=== PATIENT | female | born 1965 | race Two or more races ===

== ENCOUNTER 2023-01-03 09:50 | Day surgery (SDC) | payer BC, OTHER ==
[~2023-01-03 09:50] MED LIST: LACTATED RINGERS 1,000 ML IV SCH
[2023-01-03 11:13] VITALS: TEMP 97.2
[2023-01-03] MEDS ORDERED: PROPOFOL 10 MG/ML 20 ML VIAL IV ONE (12:16)
--- NOTE | 2023-01-03 12:35 | P.PCN ---
Date of Procedure: 01/03/23 Procedure(s) Performed: BRIEF HISTORY: Patient is a 57-year-old pleasant white female scheduled for an elective colonoscopy as a part of evaluation of prior history of colon polyps. Last colonoscopy was 5 years ago. PROCEDURE PERFORMED: Colonoscopy. PREOPERATIVE DIAGNOSIS: History of colon polyps. IV sedation per Anesthesia. PROCEDURE: After informed consent was obtained, the patient, was brought into the endoscopy unit. IV sedation was administered by Anesthesia under continuous monitoring. Digital rectal examination was normal. Initially the Olympus CF-160 flexible video colonoscope was then inserted in the rectum, gradually advanced into the cecum without any difficulty. Careful examination was performed as the scope was gradually being withdrawn. Ileocecal valve and the appendiceal orifice were visualized and appeared normal. Prep was fair.. Mucosa of the cecum, ascending colon, transverse colon, descending colon, sigmoid colon, and rectum appeared normal. Scattered sigmoid diverticulosis. Retroflexion was performed in the rectum and no lesions were seen. The patient tolerated the procedure well. IMPRESSION: Scattered sigmoid diverticulosis No evidence of colorectal neoplasia RECOMMENDATIONS: Findings of this examination were discussed with the patient as well as her family. She was advised to have a repeat screening colonoscopy in 5 years because of the prior history of colon polyps.
[2023-01-03 13:01] VITALS: BP 130/85; PULSE 63; RESP 14
== END 2023-01-03 13:15 | disposition home or self-care (01) ==
LOC: ORWHC2ENDO 09:50
PROVIDERS: ATTEND Internal Medicine Gastroenterology
DX: Z12.11 Encounter for screening for malignant neoplasm of colon (principal); K57.30 Diverticulosis of large intestine without perforation or abscess without bleeding; I10 Essential (primary) hypertension; E78.5 Hyperlipidemia, unspecified; F12.90 Cannabis use, unspecified, uncomplicated; K21.9 Gastro-esophageal reflux disease without esophagitis; Z86.010 Personal history of colon polyps; Z88.5 Allergy status to narcotic agent; Z79.899 Other long term (current) drug therapy
CPT/HCPCS: 45378; J2704

== ENCOUNTER 2023-02-15 15:20 | Inpatient (IN) | payer OTHER ==
[2023-02-15 15:59] LABS: Basophils % (A) 1 %; Eosinophils # (A) 0.1 k/uL (0-0.7); Eosinophils % (A) 2 %; HCT 41.1 % (34.0-46.0); HGB 14.8 gm/dL (11.4-16.0); Lymphocytes # (A) 0.9 k/uL (1.0-4.8); Lymphocytes % (A) 20 %; MCH 33.6 pg (25.0-35.0); MCHC 36.1 g/dL (31.0-37.0); MCV 93.1 fL (80.0-100.0); Mean Platelet Volume 7.8; Monocytes # (A) 0.4 k/uL (0-1.0); Monocytes % (A) 8 %; Neutrophils # (A) 3.2 k/uL (1.3-7.7); Neutrophils % (A) 68 %; Platelet Count 182 k/uL (150-450); RBC 4.41 m/uL (3.80-5.40); RDW 13.3 % (11.5-15.5); WBC 4.7 k/uL (3.8-10.6)
[2023-02-15 16:04] LABS: INR 0.9 (<1.2); Partial Thromboplastin Time 23.4 sec (22.0-30.0)
[2023-02-15 16:12] LABS: ALT 93 U/L (4-34); AST 241 U/L (14-36); African American GFR (CKD) >90 (>60 ml/min/1.73 sqM); Albumin 4.8 g/dL (3.5-5.0); Alkaline Phosphatase 113 U/L (38-126); Anion Gap 14 mmol/L; Blood Urea Nitrogen 6 mg/dL (7-17); Calcium 9.4 mg/dL (8.4-10.2); Carbon Dioxide 25 mmol/L (22-30); Chloride 83 mmol/L (98-107); Glucose 114 mg/dL (74-99); Magnesium 1.3 mg/dL (1.6-2.3); Non-African American GFR(CKD) >90 (>60 ml/min/1.73 sqM); Potassium 3.2 mmol/L (3.5-5.1); Sodium 122 mmol/L (137-145); Total Bilirubin 1.9 mg/dL (0.2-1.3); Total Protein 8.4 g/dL (6.3-8.2)
--- NOTE | 2023-02-15 16:13 | ED ---
General Adult HPI - General Source: patient Mode of arrival: ambulatory Limitations: no limitations <Gera Ybarra - Last Filed: 02/15/23 16:12> <Malcolm Ortiz - Last Filed: 02/16/23 09:15> - General Chief complaint: Chest Pain Stated complaint: Chest Pain Time Seen by Provider: 02/15/23 16:12 - History of Present Illness Initial comments: 57-year-old female presenting with chief complaint of "I just don't feel right". Admits to lightheadedness and fatigue. She denies chest pain or difficulty breathing. (Gera Ybarra) - Related Data Home Medications Medication Instructions Recorded Confirmed ALPRAZolam [Xanax] 0.25 mg PO DAILY PRN 01/01/23 02/15/23 Ezetimibe [Zetia] 10 mg PO DAILY 01/01/23 02/15/23 Lisinopril-Hctz 20-12.5 mg 1 tab PO BID 01/01/23 02/15/23 [Zestoretic 20-12.5] Omeprazole 20 mg PO DAILY 01/01/23 02/15/23 Zolpidem Tartrate [Ambien] 10 mg PO HS 01/01/23 02/15/23 Allergies Allergy/AdvReac Type Severity Reaction Status Date / Time codeine Allergy Itching Verified 02/15/23 20:36 Review of Systems ROS Other: All systems not noted in ROS Statement are negative. <Gera Ybarra - Last Filed: 02/15/23 16:12> ROS Other: All systems not noted in ROS Statement are negative. <Malcolm Ortiz - Last Filed: 02/16/23 09:15> ROS Statement: Those systems with pertinent positive or pertinent negative responses have been documented in the HPI. Past Medical History Past Medical History: GERD/Reflux, Hyperlipidemia, Hypertension, Liver Disease Additional Past Medical History / Comment(s): fatty liver, History of Any Multi-Drug Resistant Organisms: None Reported Past Surgical History: Section, Cholecystectomy, Orthopedic Surgery Additional Past Surgical History / Comment(s): rt foot surgery. colonosopy Past Anesthesia/Blood Transfusion Reactions: No Reported Reaction Past Psychological History: Anxiety Smoking Status: Former smoker, Light tobacco smoker Past Alcohol Use History: Daily Past Drug Use History: Marijuana - Past Family History Mother Family Medical History: CVA/TIA Father Family Medical History: Cancer Additional Family Medical History / Comment(s): lung cancer <Gera Ybarra - Last Filed: 02/15/23 16:12> General Exam Limitations: no limitations <Gera Ybarra - Last Filed: 02/15/23 16:12> General appearance: alert, in no apparent distress Head exam: Present: atraumatic, normocephalic Eye exam: Present: normal appearance. Absent: scleral icterus, conjunctival injection ENT exam: Present: mucous membranes dry Neck exam: Present: normal inspection Respiratory exam: Present: normal lung sounds bilaterally. Absent: respiratory distress, wheezes, rales, rhonchi, stridor Cardiovascular Exam: Present: regular rate, normal rhythm, normal heart sounds. Absent: systolic murmur, diastolic murmur, rubs, gallop GI/Abdominal exam: Present: soft. Absent: distended, tenderness, guarding, rebound, rigid, mass Extremities exam: Present: normal inspection, normal capillary refill. Absent: pedal edema, calf tenderness Back exam: Present: normal inspection Neurological exam: Present: alert Skin exam: Present: warm, dry, intact, normal color. Absent: rash <Malcolm Ortiz - Last Filed: 02/16/23 09:15> - General Exam Comments Initial Comments: Visual Physical Exam Vital signs reviewed General: Well-appearing, nontoxic, no acute distress. Head: Normocephalic, atraumatic Eyes: PERRLA, EOMI ENT: Airway patent Chest: Nonlabored breathing Skin: No visual rash, normal skin tone Neuro: Alert and oriented 3 Musculoskeletal: No gross abnormalities (Gera Ybarra) Course Vital Signs 02/15/23 02/15/23 02/15/23 15:28 17:07 20:43 Temperature 98.3 F Pulse Rate 106 H 91 97 Respiratory 22 16 18 Rate Blood Pressure 123/91 130/96 121/93 O2 Sat by Pulse 99 100 96 Oximetry EKG Findings - EKG Results: EKG: interpreted by ERMD, sinus rhythm, normal axis EKG shows: tachycardia (Rate 104 bpm) <Malcolm Ortiz - Last Filed: 02/16/23 09:15> Medical Decision Making - Lab Data Result diagrams: 02/15/23 15:45 02/15/23 15:45 <Gera Ybarra - Last Filed: 02/15/23 16:12> - Lab Data Result diagrams: 02/15/23 15:45 02/15/23 15:45 <Malcolm Ortiz - Last Filed: 02/16/23 09:15> - Medical Decision Making This patient is a 57 year old woman who has not been feeling in her usual self, the workup does reveal moderate hyponatremia. Patient is started on saline, her diuretic held, case discussed with admitting physician. Was pt. sent in by a medical professional or institution (, PA, KNITTER MACHINE, urgent care, hospital, or half-way...) When possible be specific @ -[No] Did you speak to anyone other than the patient for history (EMS, parent, family, police, friend...)? What history was obtained from this source @ -[No] Did you review nursing and triage notes (agree or disagree)? Why? @ -[I reviewed and agree with nursing and triage notes] Were old charts reviewed (outside hosp., previous admission, EMS record, old EKG, old radiological studies, urgent care reports/EKG's, half-way records)? Report findings @ -[No old charts were reviewed] Differential Diagnosis (chest pain, altered mental status, abdominal pain women, abdominal pain men, vaginal bleeding, weakness, fever, dyspnea, syncope, headache, dizziness, GI bleed, back pain, seizure, CVA, palpatations, mental health, musculoskeletal)? @ -[Differential Weakness: Hypoglycemia, shock, sepsis, hyponatremia, anemia, infection, OR, ETOH, adverse medicine reaction, overdose, stroke, this is not meant to be an all-inclusive list. EKG interpreted by me (3pts min.). @ -[As above] X-rays interpreted by me (1pt min.). @ -[None done] CT interpreted by me (1pt min.). @ -[None done] U/S interpreted by me (1pt. min.). @ -[None done] What testing was considered but not performed or refused? (CT, X-rays, U/S, labs)? Why? @ -[None] What meds were considered but not given or refused? Why? @ -[None] Did you discuss the management of the patient with other professionals (professionals i.e. , PA, KNITTER MACHINE, lab, RT, psych nurse, social professionals, fittings tightener, teacher, grant officer, bilingual case manager)? Give summary @ -[Case discussed with admitting physician Was smoking cessation discussed for >3mins.? @ -[No] Was critical care preformed (if so, how long)? @ -[No] Were there social determinants of health that impacted care today? How? (Homelessness, low income, unemployed, alcoholism, drug addiction, transportation, low edu. Level, literacy, decrease access to med. care, half-way, rehab)? @ -[No] Was there de-escalation of care discussed even if they declined (Discuss DNR or withdrawal of care, Hospice)? DNR status @ -[No] What co-morbidities impacted this encounter? (DM, HTN, Smoking, COPD, CAD, Cancer, CVA, ARF, Chemo, Hep., AIDS, mental health diagnosis, sleep apnea, morbid obesity)? @ -[Hypertension Was patient admitted / discharged? Hospital course, mention meds given and route, prescriptions, significant lab abnormalities, going to OR and other pertinent info. @ -[Patient is admitted for IV hydration, saline Undiagnosed new problem with uncertain prognosis? @ -[No] Drug Therapy requiring intensive monitoring for toxicity (Heparin, Nitro, Insulin, Cardizem)? @ -[No] Were any procedures done? @ -[No] Diagnosis/symptom? @ -[Acute hyponatremia Acute, or Chronic, or Acute on Chronic? @ -[Acute Uncomplicated (without systemic symptoms) or Complicated (systemic symptoms)? @ -[Uncomplicated Side effects of treatment? @ -[No] Exacerbation, Progression, or Severe Exacerbation? @ -[No] Poses a threat to life or bodily function? How? (Chest pain, USA, OR, pneumonia, PE, COPD, DKA, ARF, appy, cholecystitis, CVA, Diverticulitis, Homicidal, Suicidal, threat to staff... and all critical care pts) @ -[No] (Malcolm Ortiz) - Lab Data Lab Results 02/15/23 02/15/23 02/15/23 Range/Units 15:45 15:45 15:45 WBC 4.7 (3.8-10.6) k/uL RBC 4.41 (3.80-5.40) m/uL Hgb 14.8 (11.4-16.0) gm/dL Hct 41.1 (34.0-46.0) % MCV 93.1 (80.0-100.0) fL MCH 33.6 (25.0-35.0) pg MCHC 36.1 (31.0-37.0) g/dL RDW 13.3 (11.5-15.5) % Plt Count 182 (150-450) k/uL MPV 7.8 Neutrophils % 68 % Lymphocytes % 20 % Monocytes % 8 % Eosinophils % 2 % Basophils % 1 % Neutrophils # 3.2 (1.3-7.7) k/uL Lymphocytes # 0.9 L (1.0-4.8) k/uL Monocytes # 0.4 (0-1.0) k/uL Eosinophils # 0.1 (0-0.7) k/uL Basophils # 0.0 (0-0.2) k/uL PT 10.0 (9.0-12.0) sec INR 0.9 (<1.2) APTT 23.4 (22.0-30.0) sec Sodium 122 L (137-145) mmol/L Potassium 3.2 L (3.5-5.1) mmol/L Chloride 83 L (98-107) mmol/L Carbon Dioxide 25 (22-30) mmol/L Anion Gap 14 mmol/L BUN 6 L (7-17) mg/dL Creatinine 0.63 (0.52-1.04) mg/dL Est GFR (CKD-EPI)AfAm >90 (>60 ml/min/1.73 sqM) Est GFR (CKD-EPI)NonAf >90 (>60 ml/min/1.73 sqM) Glucose 114 H (74-99) mg/dL Calcium 9.4 (8.4-10.2) mg/dL Magnesium 1.3 L (1.6-2.3) mg/dL Total Bilirubin 1.9 H (0.2-1.3) mg/dL AST 241 H (14-36) U/L ALT 93 H (4-34) U/L Alkaline Phosphatase 113 (38-126) U/L Troponin I (0.000-0.034) ng/mL Total Protein 8.4 H (6.3-8.2) g/dL Albumin 4.8 (3.5-5.0) g/dL 02/15/23 Range/Units 15:45 WBC (3.8-10.6) k/uL RBC (3.80-5.40) m/uL Hgb (11.4-16.0) gm/dL Hct (34.0-46.0) % MCV (80.0-100.0) fL MCH (25.0-35.0) pg MCHC (31.0-37.0) g/dL RDW (11.5-15.5) % Plt Count (150-450) k/uL MPV Neutrophils % % Lymphocytes % % Monocytes % % Eosinophils % % Basophils % % Neutrophils # (1.3-7.7) k/uL Lymphocytes # (1.0-4.8) k/uL Monocytes # (0-1.0) k/uL Eosinophils # (0-0.7) k/uL Basophils # (0-0.2) k/uL PT (9.0-12.0) sec INR (<1.2) APTT (22.0-30.0) sec Sodium (137-145) mmol/L Potassium (3.5-5.1) mmol/L Chloride (98-107) mmol/L Carbon Dioxide (22-30) mmol/L Anion Gap mmol/L BUN (7-17) mg/dL Creatinine (0.52-1.04) mg/dL Est GFR (CKD-EPI)AfAm (>60 ml/min/1.73 sqM) Est GFR (CKD-EPI)NonAf (>60 ml/min/1.73 sqM) Glucose (74-99) mg/dL Calcium (8.4-10.2) mg/dL Magnesium (1.6-2.3) mg/dL Total Bilirubin (0.2-1.3) mg/dL AST (14-36) U/L ALT (4-34) U/L Alkaline Phosphatase (38-126) U/L Troponin I <0.012 (0.000-0.034) ng/mL Total Protein (6.3-8.2) g/dL Albumin (3.5-5.0) g/dL Disposition <Gera Ybarra - Last Filed: 02/15/23 16:12> Is patient prescribed a controlled substance at d/c from ED?: No <Malcolm Ortiz - Last Filed: 02/16/23 09:15> Clinical Impression: Hyponatremia Disposition: ADMITTED IP TO THIS HOSP Condition: Good
--- NOTE | 2023-02-15 18:25 | XR ---
EXAMINATION: XR chest 2V: 02/15/2023 4:52 PM CLINICAL INDICATION: dizziness TECHNIQUE: Departmental protocol COMPARISON: None FINDINGS: The lungs are clear. The pleural spaces are negative. The cardiac silhouette is not enlarged. The remainder of the mediastinal silhouette is unremarkable. The skeletal structures and soft tissues are negative for acute findings. IMPRESSION: No acute process.
--- NOTE | 2023-02-15 19:37 | US ---
EXAMINATION TYPE: US abdomen limited DATE OF EXAM: 02/15/2023 COMPARISON: NONE CLINICAL INDICATION: Female, 57 years old with history of evaluate biliary system; elevated LFTs TECHNIQUE: Multiple sonographic images of the right upper quadrant are obtained. FINDINGS: EXAM MEASUREMENTS: Liver Length: 13.8 cm Gallbladder Wall: Surgically absent CBD: 0.57 cm Right Kidney: 11.0 x 5.7 x 7.0 cm Pancreas: Parts visualized appear wnl Liver: Heterogeneous and increased attenuation Gallbladder: Surgically absent Evidence for sonographic Tucker's sign: No CBD: Not well visualized. Appears wnl Right Kidney: wnl IMPRESSION: No acute sonographic process.
[2023-02-15] MEDS ORDERED: NALOXONE 0.4 MG/ML 1 ML VIAL IV PRN (20:09)
[2023-02-15] MEDS ORDERED: ACETAMINOPHEN TAB 325 MG TAB PO PRN (20:09)
[2023-02-15] MEDS: FAMOTIDINE 20 MG TAB PO SCH (20:42)
[2023-02-15] MEDS: SODIUM CHLORIDE 0.9% 1,000 ML IV SCH ×2 (20:43→21:29)
[2023-02-15] MEDS ORDERED: ALPRAZolam 0.25 MG TAB PO PRN (22:00)
[2023-02-15] MEDS ORDERED: Potassium Replacement Protocol 1 EACH MISC MISCELLANE PRN (22:04)
[2023-02-15] MEDS ORDERED: Magnesium Replacement Protocol 1 EACH MISC MISCELLANE PRN (22:05)
[2023-02-15] MEDS: MAGNESIUM SULFATE-D5W PMX 1 GM in DEXTROSE/WATER 1 100ML.BAG IVPB SCH ×2 (22:35→23:32)
[2023-02-15] MEDS: POTASSIUM CHLORIDE ER 20 MEQ TAB.ER PO SCH ×2 (22:35→23:30)
[2023-02-15] MEDS: ZOLPIDEM 5 MG TAB PO PRN (23:30)
[2023-02-16] MEDS ORDERED: LISINOPRIL-HCTZ 20-12.5 MG 1 EACH TAB PO SCH (09:00)
[2023-02-16] MEDS: FAMOTIDINE 20 MG TAB PO SCH ×2 (09:03→20:17)
[2023-02-16] MEDS: EZETIMIBE 10 MG TAB PO SCH (09:03)
[2023-02-16 09:39] LABS: BUN/Creat Ratio 11.33 Ratio (12.00-20.00); Blood Urea Nitrogen 6.8 mg/dL (9.0-27.0); Calcium 8.7 mg/dL (8.7-10.3); Carbon Dioxide 22.2 mmol/L (21.6-31.8); Chloride 89 mmol/L (96-109); Glucose 98 mg/dL (70-110); Magnesium 2.2 mg/dL (1.5-2.4); Potassium 3.7 mmol/L (3.5-5.5); Sodium 124 mmol/L (135-145)
[2023-02-16 10:27] LABS: ALT 67 U/L (4-34); AST 135 U/L (14-36); African American GFR (CKD) >90 (>60 ml/min/1.73 sqM); Albumin 3.7 g/dL (3.5-5.0); Albumin/Globulin Ratio 1.3; Alkaline Phosphatase 95 U/L (38-126); Anion Gap 10 mmol/L; Blood Urea Nitrogen 7 mg/dL (7-17); Calcium 8.4 mg/dL (8.4-10.2); Carbon Dioxide 24 mmol/L (22-30); Chloride 90 mmol/L (98-107); Globulin 2.9 g/dL; Glucose 99 mg/dL (74-99); Non-African American GFR(CKD) >90 (>60 ml/min/1.73 sqM); Potassium 3.9 mmol/L (3.5-5.1); Sodium 124 mmol/L (137-145); Total Bilirubin 1.6 mg/dL (0.2-1.3); Total Protein 6.6 g/dL (6.3-8.2)
--- NOTE | 2023-02-16 12:04 | P.NPCON ---
History of Present Illness - Reason for Consult hyponatremia - History of Present Illness Reason for consultation: Hyponatremia History of present illness: Patient is a 57-year-old female seen in consultation for hyponatremia. She came to the hospital due to feeling 'funny'. She complains of worsening fatigue as well as dizziness. She denies any falls or syncopal episodes. She denies vomiting or diarrhea. She states her oral intake the last few days has been less than usual. She denies excessive fluid intake. Denies any personal history of malignancy. No edema. Denies history of coronary artery disease. Denies personal history of kidney disease. Her brother did have diabetes and required dialysis and subsequently got a kidney transplant. He is now . Patient's sodium level on admission was 122 and is 124 this morning. She is maintained on thiazide diuretic. She does have history of hypertension. Blood pressure is stable. Chest x-ray showed no acute process. Abdominal ultrasound showed no acute process. She is currently receiving normal saline at 1 30 mL an hour. Vital signs are stable. General: No acute distress. HEENT: Head exam is unremarkable. LUNGS: No audible rhonchi or wheezes. HEART: Rate and Rhythm are regular. ABDOMEN: Nontender. No distention. EXTREMITITES: No edema. Past Medical History Past Medical History: GERD/Reflux, Hyperlipidemia, Hypertension, Liver Disease Additional Past Medical History / Comment(s): fatty liver, History of Any Multi-Drug Resistant Organisms: None Reported Past Surgical History: Section, Cholecystectomy, Orthopedic Surgery Additional Past Surgical History / Comment(s): rt foot surgery. colonosopy Past Anesthesia/Blood Transfusion Reactions: No Reported Reaction Past Psychological History: Anxiety Smoking Status: Former smoker, Light tobacco smoker Past Alcohol Use History: Daily Additional Past Alcohol Use History / Comment(s): quit 28yrs ago Past Drug Use History: Marijuana Additional Drug Use History / Comment(s): thc edibles and occasional smoking. pt aware not to use 24 hrs before procedure. - Past Family History Mother Family Medical History: CVA/TIA Father Family Medical History: Cancer Additional Family Medical History / Comment(s): lung cancer Medications and Allergies Home Medications Medication Instructions Recorded Confirmed Type ALPRAZolam [Xanax] 0.25 mg PO DAILY PRN 01/01/23 02/15/23 History Ezetimibe [Zetia] 10 mg PO DAILY 01/01/23 02/15/23 History Lisinopril-Hctz 20-12.5 mg 1 tab PO BID 01/01/23 02/15/23 History [Zestoretic 20-12.5] Omeprazole 20 mg PO DAILY 01/01/23 02/15/23 History Zolpidem Tartrate [Ambien] 10 mg PO HS 01/01/23 02/15/23 History Allergies Allergy/AdvReac Type Severity Reaction Status Date / Time codeine Allergy Itching Verified 02/15/23 20:36 Physical Exam Vitals: Vital Signs Temp Pulse Pulse Resp BP BP Pulse Ox 02/16/23 08:49 100 02/16/23 07:08 98.1 F 75 17 142/89 100 02/16/23 04:01 98.1 F 78 16 128/83 99 02/15/23 21:48 98.8 F 79 17 144/94 99 02/15/23 20:43 97 18 121/93 96 02/15/23 17:07 91 16 130/96 100 02/15/23 15:28 98.3 F 106 H 22 123/91 99 Intake and Output 02/15/23 02/16/23 02/16/23 22:59 06:59 14:59 Intake Total 1240 Balance 1240 Intake: Intake, IV Titration 1240 Amount Magnesium Sulfate-D5w Pmx 200 1 gm In Dextrose/Water 1 100ml.bag @ 100 mls/hr IVPB Q1H [facility] Rx#: [id number] Sodium Chloride 0.9% 1, 1040 000 ml @ 130 mls/hr IV . Q7H42M [facility] Rx#:[id number] Other: # Voids 4 # Bowel Movements 4 Weight 83.915 kg Results - Lab Results Most recent lab results Calcium 8.4 mg/dL (8.4-10.2) 02/16/23 06:06 Calcium 8.7 mg/dL (8.7-10.3) 02/16/23 06:06 Magnesium 2.2 mg/dL (1.5-2.4) 02/16/23 06:06 02/15/23 15:45 02/16/23 06:06 Assessment and Plan Plan: Assessment: 1. Hypovolemic hyponatremia further worsened with the use of thiazide diuretic. Sodium level CXXII on admission and 124 this morning. 2. Benign hypertension. 3. Hypokalemia due to thiazide diuretic and hypomagnesemia. Replaced. Better. 4. Hypomagnesemia from poor intake and diuretic. Replaced. Improved. Plan: Decrease rate of normal saline to 75 mL an hour. Check serum and urine osmolality and urine sodium level. Check TSH. Stop thiazide diuretic. Maintain lisinopril. Encourage oral intake. Add 1500 mL fluid restriction. Repeat sodium level this evening. Thank you for the consultation. I will continue to follow the patient with you during her hospital stay.
[2023-02-16] MEDS: SODIUM CHLORIDE 0.9% 1,000 ML IV SCH (12:09)
--- NOTE | 2023-02-16 14:33 | P.HPIM ---
History of Present Illness H&P Date: 02/16/23 history of present illness;patient is a 57-year-old lady who presented to the ER because of not feeling well. Patient stated that she was complaining of nausea for the last couple of days. Complaining of decreased appetite. Denies any vomiting. Does admit to diarrhea today. Patient denies any chest pain. Denies any shortness of breath. Because of this complaint of not feeling well, patient came to the ER Initial lab work in the ER showedWBC 4.7, hemoglobin 14.8, sodium 122, potassium 3.2, BUN 6, creatinine 0.63, magnesium 1.3, ultrasound abdomen showed no acute abdominal process Patient was admitted to medicine service REVIEW OF SYSTEMS: CONSTITUTIONAL: No fever. Complaining of lethargy and weakness HEENT: No recent visual problems or hearing problems. Denied any sore throat. CARDIOVASCULAR: No chest pain, orthopnea, PND, no palpitations, no syncope. PULMONARY: No shortness of breath, no cough, no hemoptysis. GASTROINTESTINAL: As mentioned in HPI NEUROLOGICAL: No headaches, no weakness, no numbness. HEMATOLOGICAL: Denies any bleeding or petechiae. GENITOURINARY: Denies any burning micturition, frequency, or urgency. MUSCULOSKELETAL/RHEUMATOLOGICAL: Denies any joint pain, swelling, or any muscle pain. ENDOCRINE: Denies any polyuria or polydipsia. The rest of the 14-point review of systems is negative. PHYSICAL EXAMINATION: GENERAL: The patient is alert and oriented x3, not in any acute distress. Well developed, well nourished. HEENT: Pupils are round and equally reacting to light. EOMI. No scleral icterus. No conjunctival pallor. Normocephalic, atraumatic. No pharyngeal erythema. No thyromegaly. CARDIOVASCULAR: S1 and S2 present. No murmurs, rubs, or gallops. PULMONARY: Chest is clear to auscultation, no wheezing or crackles. ABDOMEN: Soft, nontender, nondistended, normoactive bowel sounds. No palpable organomegaly. MUSCULOSKELETAL: No joint swelling or deformity. EXTREMITIES: No cyanosis, clubbing, or pedal edema. NEUROLOGICAL: Gross neurological examination did not reveal any focal deficits. SKIN: No rashes. Assessment and plan hyponatremia Hypokalemia monitor vital signs Monitor CBC Monitor CMP Continue to monitor sodium levels continue IV fluids Check urine lites. Continue antiemetics Consult nephrology resume home meds, hold thiazide diuretic, resume lisinopril DVT prophylaxis: Past Medical History Past Medical History: GERD/Reflux, Hyperlipidemia, Hypertension, Liver Disease Additional Past Medical History / Comment(s): fatty liver, History of Any Multi-Drug Resistant Organisms: None Reported Past Surgical History: Section, Cholecystectomy, Orthopedic Surgery Additional Past Surgical History / Comment(s): rt foot surgery. colonosopy Past Anesthesia/Blood Transfusion Reactions: No Reported Reaction Past Psychological History: Anxiety Smoking Status: Former smoker, Light tobacco smoker Past Alcohol Use History: Daily Additional Past Alcohol Use History / Comment(s): quit 28yrs ago Past Drug Use History: Marijuana Additional Drug Use History / Comment(s): thc edibles and occasional smoking. pt aware not to use 24 hrs before procedure. - Past Family History Mother Family Medical History: CVA/TIA Father Family Medical History: Cancer Additional Family Medical History / Comment(s): lung cancer Medications and Allergies Home Medications Medication Instructions Recorded Confirmed Type ALPRAZolam [Xanax] 0.25 mg PO DAILY PRN 01/01/23 02/15/23 History Ezetimibe [Zetia] 10 mg PO DAILY 01/01/23 02/15/23 History Lisinopril-Hctz 20-12.5 mg 1 tab PO BID 01/01/23 02/15/23 History [Zestoretic 20-12.5] Omeprazole 20 mg PO DAILY 01/01/23 02/15/23 History Zolpidem Tartrate [Ambien] 10 mg PO HS 01/01/23 02/15/23 History Allergies Allergy/AdvReac Type Severity Reaction Status Date / Time codeine Allergy Itching Verified 02/15/23 20:36 Physical Exam Vitals: Vital Signs Temp Pulse Pulse Resp BP BP Pulse Ox 02/16/23 08:49 100 02/16/23 07:08 98.1 F 75 17 142/89 100 02/16/23 04:01 98.1 F 78 16 128/83 99 02/15/23 21:48 98.8 F 79 17 144/94 99 02/15/23 20:43 97 18 121/93 96 02/15/23 17:07 91 16 130/96 100 02/15/23 15:28 98.3 F 106 H 22 123/91 99 Intake and Output 02/15/23 02/16/23 02/16/23 22:59 06:59 14:59 Intake Total 1240 Balance 1240 Intake: Intake, IV Titration 1240 Amount Magnesium Sulfate-D5w Pmx 200 1 gm In Dextrose/Water 1 100ml.bag @ 100 mls/hr IVPB Q1H [facility] Rx#: [id number] Sodium Chloride 0.9% 1, 1040 000 ml @ 130 mls/hr IV . Q7H42M [facility] Rx#:[id number] Other: # Voids 4 # Bowel Movements 4 Weight 83.915 kg Results CBC & Chem 7: 02/15/23 15:45 02/16/23 06:06 Labs: Abnormal Lab Results - Last 24 Hours (Table) 02/15/23 02/15/23 02/16/23 Range/Units 15:45 15:45 06:06 Lymphocytes # 0.9 L (1.0-4.8) k/uL Sodium 122 L 124 L (137-145) mmol/L Potassium 3.2 L (3.5-5.1) mmol/L Chloride 83 L 89 L (98-107) mmol/L Anion Gap 12.80 H (4.00-12.00) mmol/L BUN 6 L 6.8 L (7-17) mg/dL BUN/Creatinine Ratio 11.33 L (12.00-20.00) Ratio Glucose 114 H (74-99) mg/dL Magnesium 1.3 L (1.6-2.3) mg/dL Total Bilirubin 1.9 H (0.2-1.3) mg/dL AST 241 H (14-36) U/L ALT 93 H (4-34) U/L Total Protein 8.4 H (6.3-8.2) g/dL 02/16/23 Range/Units 06:06 Lymphocytes # (1.0-4.8) k/uL Sodium 124 L (137-145) mmol/L Potassium (3.5-5.1) mmol/L Chloride 90 L (98-107) mmol/L Anion Gap (4.00-12.00) mmol/L BUN (7-17) mg/dL BUN/Creatinine Ratio (12.00-20.00) Ratio Glucose (74-99) mg/dL Magnesium (1.6-2.3) mg/dL Total Bilirubin 1.6 H (0.2-1.3) mg/dL AST 135 H (14-36) U/L ALT 67 H (4-34) U/L Total Protein (6.3-8.2) g/dL Thrombosis Risk Factor Assmnt - Choose All That Apply Each Factor Represents 1 point: Age 41-60 years Thrombosis Risk Factor Assessment Total Risk Factor Score: 1 Thrombosis Risk Factor Assessment Level: Low Risk
[2023-02-16] MEDS: lisinopriL 20 MG TAB PO SCH (20:17)
[2023-02-16 20:26] VITALS: RESP 18
[2023-02-16] MEDS ORDERED: CALCIUM CARBONATE 500 MG CHEWABLE PO PRN (22:54)
[2023-02-16] MEDS: ZOLPIDEM 5 MG TAB PO PRN (23:01)
[2023-02-17] MEDS: lisinopriL 20 MG TAB PO SCH (08:30)
[2023-02-17] MEDS: EZETIMIBE 10 MG TAB PO SCH (08:30)
[2023-02-17] MEDS: FAMOTIDINE 20 MG TAB PO SCH (08:30)
[2023-02-17 13:23] LABS: Basophils # (A) 0.02 X 10*3/uL (0.00-0.10); Basophils % (A) 0.6 %; Eosinophils # (A) 0.02 X 10*3/uL (0.04-0.35); Eosinophils % (A) 0.6 %; HCT 32.1 % (37.2-46.3); HGB 10.9 d/dL (12.0-15.0); Lymphocytes # (A) 0.83 X 10*3/uL (0.90-5.00); Lymphocytes % (A) 26.4 %; MCH 32.4 pg (27.0-32.0); MCV 95.5 FL (80.0-97.0); Mean Platelet Volume 9.3 FL (9.5-12.2); Monocytes # (A) 0.45 X 10*3/uL (0.20-1.00); Monocytes % (A) 14.3 %; NRBC Per 100 WBC 0 X 10*3/uL (0.00-0.01); Neutrophils # (A) 1.81 X 10*3/uL (1.80-7.70); Neutrophils % (A) 57.8 %; Platelet Count 110 X 10*3/uL (140-440); RBC 3.36 X 10*6/uL (4.10-5.20); RDW 13.2 % (11.5-14.5); WBC 3.14 X 10*3/uL (4.50-10.00)
[2023-02-17 13:39] LABS: BUN/Creat Ratio 9.33 Ratio (12.00-20.00); Blood Urea Nitrogen 5.6 mg/dL (9.0-27.0); Chloride 93 mmol/L (96-109); Glucose 93 mg/dL (70-110); Magnesium 1.6 mg/dL (1.5-2.4); Potassium 3.7 mmol/L (3.5-5.5); Sodium 129 mmol/L (135-145)
[2023-02-17 13:40] LABS: ALT 51 U/L (8-44); AST 92 U/L (13-35); Albumin 3.8 d/dL (3.8-4.9); Albumin/Globulin Ratio 1.52 Ratio (1.60-3.17); Alkaline Phosphatase 78 U/L (41-126); Calcium 9.1 mg/dL (8.7-10.3); Globulin 2.5 d/dL (1.6-3.3); Total Bilirubin 1.3 mg/dL (0.3-1.2); Total Protein 6.3 d/dL (6.2-8.2)
--- NOTE | 2023-02-17 14:06 | P.DS ---
Providers Date of admission: 02/15/23 20:12 Expected date of discharge: 02/17/23 Attending physician: Ingrid Callahan Consults: 02/16/23 10:59 Consult Physician Routine Consulting Provider: Evangelist Naranjo Consult Reason/Comments: hyponatremia Do you want consulting provider notified?: Yes Primary care physician: Michael Manley MD Hospital Course: Discharge diagnoses; hyponatremia Hypokalemia Hypertension Hypomagnesemia Hospital course; patient is a 57-year-old lady who presented to the ER because of not feeling wel l. Patient stated that she was complaining of nausea for the last couple of days. Complaining of decreased appetite. Denies any vomiting. Does admit to diarrhea today. Patient denies any chest pain. Denies any shortness of breath. Because of this complaint of not feeling well, patient came to the ER Initial lab work in the ER showedWBC 4.7, hemoglobin 14.8, sodium 122, potassium 3.2, BUN 6, creatinine 0.63, magnesium 1.3, ultrasound abdomen showed no acute abdominal process Patient was admitted to medicine service 02/17. Patient seen and examined. States she feels much better. Total level improved to 129. Being discharged in stable condition to outpatient follow-up with nephrology and PCP PHYSICAL EXAMINATION: GENERAL: The patient is alert and oriented x3, not in any acute distress. Well developed, well nourished. HEENT: Pupils are round and equally reacting to light. EOMI. No scleral icterus. No conjunctival pallor. Normocephalic, atraumatic. No pharyngeal erythema. No thyromegaly. CARDIOVASCULAR: S1 and S2 present. No murmurs, rubs, or gallops. PULMONARY: Chest is clear to auscultation, no wheezing or crackles. ABDOMEN: Soft, nontender, nondistended, normoactive bowel sounds. No palpable organomegaly. MUSCULOSKELETAL: No joint swelling or deformity. EXTREMITIES: No cyanosis, clubbing, or pedal edema. NEUROLOGICAL: Gross neurological examination did not reveal any focal deficits. SKIN: No rashes. Patient Condition at Discharge: Good Plan - Discharge Summary Discharge Rx Participant: Yes New Discharge Prescriptions: New lisinopriL [Zestril] 20 mg PO BID #30 tab Continue Zolpidem Tartrate [Ambien] 10 mg PO HS Ezetimibe [Zetia] 10 mg PO DAILY ALPRAZolam [Xanax] 0.25 mg PO DAILY PRN PRN Reason: Anxiety Omeprazole 20 mg PO DAILY Discontinued Lisinopril-Hctz 20-12.5 mg [Zestoretic 20-12.5] 1 tab PO BID Discharge Medication List ALPRAZolam [Xanax] 0.25 mg PO DAILY PRN 01/01/23 [History] Ezetimibe [Zetia] 10 mg PO DAILY 01/01/23 [History] Omeprazole 20 mg PO DAILY 01/01/23 [History] Zolpidem Tartrate [Ambien] 10 mg PO HS 01/01/23 [History] lisinopriL [Zestril] 20 mg PO BID #30 tab 02/17/23 [Rx] Follow up Appointment(s)/Referral(s): Michael Manley MD [Primary Care Provider] - 1-2 days Ambulatory/Diagnostic Orders: Basic Metabolic Panel [LAB.AMB] Location: None Selected
[2023-02-17 14:17] VITALS: BP 149/89; PULSE 73; TEMP 97.7
--- NOTE | 2023-02-17 16:22 | P.PN ---
Subjective Progress Note Date: 02/17/23 Follow-up for hyponatremia Objective - Vital Signs Vital signs: Vital Signs Temp 97.7 F 02/17/23 14:00 Pulse 73 02/17/23 14:00 Resp 18 02/17/23 14:00 BP 149/89 02/17/23 14:00 Pulse Ox 100 02/17/23 14:00 FiO2 Intake & Output 02/16/23 02/17/23 02/17/23 18:59 06:59 18:59 Output Total 1 Balance -1 Output: Urine 1 - Exam No acute distress S1-S2 heard Lungs clear Trace edema - Labs CBC & Chem 7: 02/17/23 07:03 02/17/23 07:03 Labs: Abnormal Lab Results - Last 24 Hours (Table) 02/16/23 02/17/23 02/17/23 Range/Units 17:01 07:03 07:03 WBC 3.14 L (4.50-10.00) X 10*3/uL RBC 3.36 L (4.10-5.20) X 10*6/uL Hgb 10.9 L (12.0-15.0) d/dL Hct 32.1 L (37.2-46.3) % MCH 32.4 H (27.0-32.0) pg Plt Count 110 L (140-440) X 10*3/uL MPV 9.3 L (9.5-12.2) FL Lymphocytes # 0.83 L (0.90-5.00) X 10*3/uL Eosinophils # 0.02 L (0.04-0.35) X 10*3/uL Sodium 124 L 129 L (137-145) mmol/L Chloride 93 L (96-109) mmol/L Carbon Dioxide 21.0 L (21.6-31.8) mmol/L Anion Gap 15.00 H (4.00-12.00) mmol/L BUN 5.6 L (9.0-27.0) mg/dL BUN/Creatinine Ratio 9.33 L (12.00-20.00) Ratio Total Bilirubin 1.3 H (0.3-1.2) mg/dL AST 92 H (13-35) U/L ALT 51 H (8-44) U/L Albumin/Globulin Ratio 1.52 L (1.60-3.17) Ratio Assessment and Plan Assessment: #1 hypovolemic hyponatremia secondary to thiazide diuretic use. #2 benign hypertension #3 electrolyte abnormality with hypokalemia and hypomagnesemia secondary to diabetic use. #4 normal renal function Plan: #1 sodium improving. #2 encourage by mouth intake. Discontinue hydrochlorothiazide now and at discharge. #3 lisinopril is also notorious to cause hyponatremia while SIADH effect. If sodium does not improve, discontinue lisinopril, change to alternative antihypertensive medication. #4 daily labs
== END 2023-02-17 14:39 | disposition home or self-care (01) | DRG 641 ==
LOC: EC 15:20 → 4SSUR 20:12
PROVIDERS: ADMIT Hospitalist; ATTEND Hospitalist
DX: E87.1 Hypo-osmolality and hyponatremia (principal); E83.42 Hypomagnesemia; E78.5 Hyperlipidemia, unspecified; E86.1 Hypovolemia; E87.6 Hypokalemia; F41.9 Anxiety disorder, unspecified; I10 Essential (primary) hypertension; K76.0 Fatty (change of) liver, not elsewhere classified; T50.2X5A Adverse effect of carbonic-anhydrase inhibitors, benzothiadiazides and other diuretics, initial encounter; Z79.899 Other long term (current) drug therapy; Z80.1 Family history of malignant neoplasm of trachea, bronchus and lung; Z82.3 Family history of stroke; Z83.3 Family history of diabetes mellitus; Z87.891 Personal history of nicotine dependence; Z88.5 Allergy status to narcotic agent
CPT/HCPCS: 36415; 71046; 76705; 80048; 80053; 83735; 83930; 83935; 84295; 84300; 84443; 84484; 85025; 85610; 85730; 93005; 94760; 99285

== ENCOUNTER 2023-11-30 15:09 | Emergency (ER) | payer OTHER ==
[2023-11-30 15:34] VITALS: RESP 18; TEMP 97.8
[2023-11-30 16:16] LABS: Basophils # (A) 0.1 k/uL (0-0.2); Basophils % (A) 1 %; Eosinophils # (A) 0.1 k/uL (0-0.7); Eosinophils % (A) 1 %; HCT 42.9 % (34.0-46.0); HGB 14.8 gm/dL (11.4-16.0); Lymphocytes # (A) 1.1 k/uL (1.0-4.8); Lymphocytes % (A) 10 %; MCH 32.1 pg (25.0-35.0); MCHC 34.4 g/dL (31.0-37.0); MCV 93.4 fL (80.0-100.0); Mean Platelet Volume 7.8; Monocytes # (A) 0.7 k/uL (0-1.0); Monocytes % (A) 6 %; Neutrophils # (A) 9.2 k/uL (1.3-7.7); Neutrophils % (A) 82 %; Platelet Count 165 k/uL (150-450); RDW 13.2 % (11.5-15.5); WBC 11.3 k/uL (3.8-10.6)
[2023-11-30 16:23] LABS: ALT 44 U/L (4-34); AST 140 U/L (14-36); African American GFR (CKD) >90 (>60 ml/min/1.73 sqM); Alkaline Phosphatase 164 U/L (38-126); Anion Gap 13 mmol/L; Blood Urea Nitrogen 3 mg/dL (7-17); Calcium 9.2 mg/dL (8.4-10.2); Carbon Dioxide 21 mmol/L (22-30); Chloride 95 mmol/L (98-107); Glucose 116 mg/dL (74-99); Magnesium 1.3 mg/dL (1.6-2.3); Non-African American GFR(CKD) >90 (>60 ml/min/1.73 sqM); Potassium 3.4 mmol/L (3.5-5.1); Sodium 129 mmol/L (137-145); Total Bilirubin 2.8 mg/dL (0.2-1.3); Total Protein 7.8 g/dL (6.3-8.2)
[2023-11-30] MEDS: MAGNESIUM SULFATE-D5W PMX 1 GM in DEXTROSE/WATER 1 100ML.BAG IVPB ONE (17:18)
[2023-11-30] MEDS: SODIUM CHLORIDE 0.9% 1,000 ML IV ONE (17:18)
--- NOTE | 2023-11-30 17:22 | ED ---
General Adult HPI - General Chief complaint: Recheck/Abnormal Lab/Rx Stated complaint: Abnormal Labs-sent by Dr Massey Seen by Provider: 11/30/23 15:15 Source: patient Mode of arrival: ambulatory Limitations: no limitations - History of Present Illness Initial comments: 58-year-old female with past medical history of daily alcohol use, low sodium who presents to the emergency department reporting abnormal labs. States she follows with Dr. Woodall for liver disease. They did draw her labs yesterday. She was called today to state that her sodium was low and she needed to go to the hospital. Patient denies knowing how low her sodium is. She does feel generally weak but denies any other symptoms. No seizures. States that she does not take any sodium supplementation. She has been hospitalized previously for this. Patient admits that she continues to drink daily. No other alleviating, precipitating modifying factors - Related Data Home Medications Medication Instructions Recorded Confirmed ALPRAZolam [Xanax] 0.25 mg PO DAILY PRN 01/01/23 11/30/23 Ezetimibe [Zetia] 10 mg PO DAILY 01/01/23 11/30/23 Omeprazole 20 mg PO DAILY 01/01/23 11/30/23 Zolpidem Tartrate [Ambien] 10 mg PO HS PRN 01/01/23 11/30/23 amLODIPine [Norvasc] 2.5 mg PO DAILY 11/30/23 11/30/23 hydroCHLOROthiazide 12.5 mg PO DAILY 11/30/23 11/30/23 Previous Rx's Medication Instructions Recorded lisinopriL [Zestril] 20 mg PO BID #30 tab 02/17/23 Allergies Allergy/AdvReac Type Severity Reaction Status Date / Time codeine Allergy Itching & Verified 11/30/23 17:16 ears ringing Review of Systems ROS Statement: Those systems with pertinent positive or pertinent negative responses have been documented in the HPI. ROS Other: All systems not noted in ROS Statement are negative. Past Medical History Past Medical History: GERD/Reflux, Hyperlipidemia, Hypertension, Liver Disease Additional Past Medical History / Comment(s): fatty liver, History of Any Multi-Drug Resistant Organisms: None Reported Past Surgical History: Section, Cholecystectomy, Orthopedic Surgery Additional Past Surgical History / Comment(s): rt foot surgery. colonosopy Past Anesthesia/Blood Transfusion Reactions: No Reported Reaction Past Psychological History: Anxiety Smoking Status: Former smoker, Light tobacco smoker Past Alcohol Use History: Daily Past Drug Use History: Marijuana - Past Family History Mother Family Medical History: CVA/TIA Father Family Medical History: Cancer Additional Family Medical History / Comment(s): lung cancer General Exam Limitations: no limitations General appearance: alert, in no apparent distress Head exam: Present: atraumatic, normocephalic, normal inspection Eye exam: Present: normal appearance, PERRL, EOMI. Absent: scleral icterus, conjunctival injection, periorbital swelling ENT exam: Present: normal exam, mucous membranes moist Neck exam: Present: normal inspection. Absent: tenderness, meningismus, l ymphadenopathy Respiratory exam: Present: normal lung sounds bilaterally. Absent: respiratory distress, wheezes, rales, rhonchi, stridor Cardiovascular Exam: Present: normal rhythm, tachycardia, normal heart sounds. Absent: systolic murmur, diastolic murmur, rubs, gallop, clicks GI/Abdominal exam: Present: soft, normal bowel sounds. Absent: distended, tenderness, guarding, rebound, rigid Extremities exam: Present: normal inspection, full ROM, normal capillary refill. Absent: tenderness, pedal edema, joint swelling, calf tenderness Back exam: Present: normal inspection Neurological exam: Present: alert, oriented X3, CN II-XII intact Psychiatric exam: Present: normal affect, normal mood Skin exam: Present: warm, dry, intact, normal color. Absent: rash Course Vital Signs 11/30/23 11/30/23 15:11 17:22 Temperature 97.8 F Pulse Rate 109 H 102 H Respiratory 18 18 Rate Blood Pressure 162/109 148/98 O2 Sat by Pulse 97 100 Oximetry Medical Decision Making - Medical Decision Making Was pt. sent in by a medical professional or institution (, PA, SENIOR ORACLE DATABASE DEVELOPER, urgent care, hospital, or alf...) When possible be specific @ -Patient was sent in from Dr. Woodall's office Did you speak to anyone other than the patient for history (EMS, parent, family, police, friend...)? What history was obtained from this source @ -No Did you review nursing and triage notes (agree or disagree)? Why? @ -I reviewed and agree with nursing and triage notes Were old charts reviewed (outside hosp., previous admission, EMS record, old EKG, old radiological studies, urgent care reports/EKG's, alf records)? Report findings @ -I reviewed patient's chart from last year when she was hospitalized for hyponatremia. Her sodium level was 122 Differential Diagnosis (chest pain, altered mental status, abdominal pain women, abdominal pain men, vaginal bleeding, weakness, fever, dyspnea, syncope, headache, dizziness, GI bleed, back pain, seizure, CVA, palpatations, mental he alth, musculoskeletal)? @ -SIADH, beer Potomania, poor solute intake EKG interpreted by me (3pts min.). @ -Yes and demonstrates sinus tachycardia with a rate of 107. MO interval 151. QRS 100. QTc of 385. No acute ST segment elevations or depressions X-rays interpreted by me (1pt min.). @ -None done CT interpreted by me (1pt min.). @ -None done U/S interpreted by me (1pt. min.). @ -None done What testing was considered but not performed or refused? (CT, X-rays, U/S, labs)? Why? @ -None What meds were considered but not given or refused? Why? @ -None Did you discuss the management of the patient with other professionals (professionals i.e. , PA, SENIOR ORACLE DATABASE DEVELOPER, lab, RT, psych nurse, social services counselor, equipment service engineer, teacher, commercial loan officer, cyanide case hardener)? Give summary @ -No Was smoking cessation discussed for >3mins.? @ -No Was critical care preformed (if so, how long)? @ -No Were there social determinants of health that impacted care today? How? (Homelessness, low income, unemployed, alcoholism, drug addiction, transportation, low edu. Level, literacy, decrease access to med. care, fdc, r ehab)? @ -No Was there de-escalation of care discussed even if they declined (Discuss DNR or withdrawal of care, Hospice)? DNR status @ -No What co-morbidities impacted this encounter? (DM, HTN, Smoking, COPD, CAD, Cancer, CVA, ARF, Chemo, Hep., AIDS, mental health diagnosis, sleep apnea, morbid obesity)? @ -Daily EtOH use Was patient admitted / discharged? Hospital course, mention meds given and route, prescriptions, significant lab abnormalities, going to OR and other pertinent info. @ -Upon arrival patient was seen and evaluated in room 21. Thorough history and physical exam was performed. Laboratory studies were conducted. Her sodium is 129. I did replace this with a bag of normal saline. I also replaced the patient's magnesium. I recommended that the patient take a magnesium supplement daily. She needs to follow-up with her doctor to have repeat evaluation of her labs and return for any new or worsening symptoms. Patient agreeable to plan and she was discharged in stable condition Undiagnosed new problem with uncertain prognosis? @ -No Drug Therapy requiring intensive monitoring for toxicity (Heparin, Nitro, Insulin, Cardizem)? @ -No Were any procedures done? @ -No Diagnosis/symptom? @ -Acute on chronic hyponatremia, acute hypomagnesemia, daily EtOH use Acute, or Chronic, or Acute on Chronic? @ -Acute on chronic, acute, chronic Uncomplicated (without systemic symptoms) or Complicated (systemic symptoms)? @ -Complicated Side effects of treatment? @ -No Exacerbation, Progression, or Severe Exacerbation? @ -No Poses a threat to life or bodily function? How? (Chest pain, USA, OR, pneumonia, PE, COPD, DKA, ARF, appy, cholecystitis, CVA, Diverticulitis, Homicidal, Suicidal, threat to staff... and all critical care pts) @ -No - Lab Data Result diagrams: 11/30/23 15:33 11/30/23 15:33 Lab Results 11/30/23 11/30/23 Range/Units 15:33 15:33 WBC 11.3 H (3.8-10.6) k/uL RBC 4.60 (3.80-5.40) m/uL Hgb 14.8 (11.4-16.0) gm/dL Hct 42.9 (34.0-46.0) % MCV 93.4 (80.0-100.0) fL MCH 32.1 (25.0-35.0) pg MCHC 34.4 (31.0-37.0) g/dL RDW 13.2 (11.5-15.5) % Plt Count 165 (150-450) k/uL MPV 7.8 Neutrophils % 82 % Lymphocytes % 10 % Monocytes % 6 % Eosinophils % 1 % Basophils % 1 % Neutrophils # 9.2 H (1.3-7.7) k/uL Lymphocytes # 1.1 (1.0-4.8) k/uL Monocytes # 0.7 (0-1.0) k/uL Eosinophils # 0.1 (0-0.7) k/uL Basophils # 0.1 (0-0.2) k/uL Sodium 129 L (137-145) mmol/L Potassium 3.4 L (3.5-5.1) mmol/L Chloride 95 L (98-107) mmol/L Carbon Dioxide 21 L (22-30) mmol/L Anion Gap 13 mmol/L BUN 3 L (7-17) mg/dL Creatinine 0.46 L (0.52-1.04) mg/dL Est GFR (CKD-EPI)AfAm >90 (>60 ml/min/1.73 sqM) Est GFR (CKD-EPI)NonAf >90 (>60 ml/min/1.73 sqM) Glucose 116 H (74-99) mg/dL Calcium 9.2 (8.4-10.2) mg/dL Magnesium 1.3 L (1.6-2.3) mg/dL Total Bilirubin 2.8 H (0.2-1.3) mg/dL AST 140 H (14-36) U/L ALT 44 H (4-34) U/L Alkaline Phosphatase 164 H (38-126) U/L Total Protein 7.8 (6.3-8.2) g/dL Albumin 4.0 (3.5-5.0) g/dL Disposition Clinical Impression: Hypomagnesemia, Hyponatremia Disposition: HOME SELF-CARE Condition: Stable Instructions (If sedation given, give patient instructions): Hyponatremia (ED), Hypomagnesemia (ED) Additional Instructions: Please follow-up with your primary care doctor to have your magnesium and sodium levels rechecked. Take a magnesium supplement daily - I recommend magnesium oxide 400 mg. Return for any new or worsening symptoms Is patient prescribed a controlled substance at d/c from ED?: No Referrals: Henna Doe MD [Primary Care Provider] - 1-2 days Time of Disposition: 17:22
[2023-11-30 17:27] VITALS: BP 148/98; PULSE 102
== END 2023-11-30 18:13 | disposition home or self-care (01) ==
LOC: EC 15:09
DX: E83.42 Hypomagnesemia (principal); E87.1 Hypo-osmolality and hyponatremia; F17.200 Nicotine dependence, unspecified, uncomplicated; F12.90 Cannabis use, unspecified, uncomplicated; Z88.5 Allergy status to narcotic agent
CPT/HCPCS: 36415; 93005; 80053; 83735; 85025; 99284; 96365; J3475

== ENCOUNTER 2023-12-31 20:02 | Emergency (ER) | payer OTHER ==
--- NOTE | 2023-12-31 20:28 | ED ---
General Adult HPI - General Source: patient Mode of arrival: wheelchair Limitations: no limitations <Sonali Britt - Last Filed: 12/31/23 20:27> - General Source: patient, family, RN notes reviewed Mode of arrival: wheelchair Limitations: no limitations <Armen Muller - Last Filed: 01/01/24 00:02> - General Chief complaint: Dizziness Stated complaint: Dizziness - History of Present Illness Initial comments: Quick note: 58-year-old female presents to the emergency department for evaluation of weakness, dizziness. Patient states that she has had this in the past when her sodium and magnesium are low. She states that the symptoms that she has been feeling are similar. She has a history of hypertension has not taken her nighttime medications today. (Sonali Britt) Patient is a 58-year-old female present to the emergency department not feeling well. Patient states symptoms have improved and she feels normal at this time. Patient has a difficult time describing her symptoms. Patient states she was a little bit lightheaded. Patient states she has not taken her blood pressure medications. Patient states she has not taken her magnesium recently. Patient does have history of similar symptoms previously associated with low sodium and low magnesium. (Armen Muller) - Related Data Home Medications Medication Instructions Recorded Confirmed ALPRAZolam [Xanax] 0.25 mg PO DAILY PRN 01/01/23 11/30/23 Ezetimibe [Zetia] 10 mg PO DAILY 01/01/23 11/30/23 Omeprazole 20 mg PO DAILY 01/01/23 11/30/23 Zolpidem Tartrate [Ambien] 10 mg PO HS PRN 01/01/23 11/30/23 amLODIPine [Norvasc] 2.5 mg PO DAILY 11/30/23 11/30/23 hydroCHLOROthiazide 12.5 mg PO DAILY 11/30/23 11/30/23 Previous Rx's Medication Instructions Recorded lisinopriL [Zestril] 20 mg PO BID #30 tab 02/17/23 Allergies Allergy/AdvReac Type Severity Reaction Status Date / Time codeine Allergy Itching & Verified 12/31/23 20:26 ears ringing Review of Systems ROS Other: All systems not noted in ROS Statement are negative. <Sonali Britt - Last Filed: 12/31/23 20:27> ROS Other: All systems not noted in ROS Statement are negative. Constitutional: Denies: fever Eyes: Denies: eye pain ENT: Denies: ear pain Respiratory: Denies: cough Cardiovascular: Denies: chest pain Endocrine: Denies: fatigue Gastrointestinal: Denies: abdominal pain <Armen Muller - Last Filed: 01/01/24 00:02> ROS Statement: Those systems with pertinent positive or pertinent negative responses have been documented in the HPI. Past Medical History Past Medical History: GERD/Reflux, Hyperlipidemia, Hypertension, Liver Disease Additional Past Medical History / Comment(s): fatty liver, History of Any Multi-Drug Resistant Organisms: None Reported Past Surgical History: Section, Cholecystectomy, Orthopedic Surgery Additional Past Surgical History / Comment(s): rt foot surgery. colonosopy Past Anesthesia/Blood Transfusion Reactions: No Reported Reaction Past Psychological History: Anxiety Smoking Status: Former smoker, Light tobacco smoker Past Alcohol Use History: Daily Past Drug Use History: Marijuana - Past Family History Mother Family Medical History: CVA/TIA Father Family Medical History: Cancer Additional Family Medical History / Comment(s): lung cancer <Sonali Britt - Last Filed: 12/31/23 20:27> General Exam Limitations: no limitations <Sonali Britt - Last Filed: 12/31/23 20:27> Limitations: no limitations General appearance: alert, in no apparent distress Head exam: Present: atraumatic, normocephalic Eye exam: Present: normal appearance, PERRL, EOMI Neck exam: Present: normal inspection Respiratory exam: Present: normal lung sounds bilaterally Cardiovascular Exam: Present: regular rate, normal rhythm GI/Abdominal exam: Present: soft. Absent: tenderness Extremities exam: Present: normal inspection Neurological exam: Present: alert, oriented X3, CN II-XII intact. Absent: motor sensory deficit Expanded Motor strength exam: RUE: 5, LUE: 5, RLE: 5, LLE: 5 Eye Response: (4) open spontaneously Motor Response: (6) obeys commands Verbal Response: (5) oriented Psychiatric exam: Present: normal affect, normal mood Skin exam: Present: normal color <Armen Muller - Last Filed: 01/01/24 00:02> - General Exam Comments Initial Comments: Visual Physical Exam Vital signs reviewed General: Well-appearing, nontoxic, no acute distress. Head: Normocephalic, atraumatic Eyes: PERRLA, EOMI ENT: Airway patent Chest: Nonlabored breathing Skin: No visual rash, normal skin tone Neuro: Alert and oriented 3 Musculoskeletal: No gross abnormalities (Sonali Britt) Course Vital Signs 12/31/23 12/31/23 20:23 23:39 Temperature 97.9 F Pulse Rate 104 H 97 Respiratory 20 20 Rate Blood Pressure 214/118 191/125 O2 Sat by Pulse 97 97 Oximetry Medical Decision Making <Sonali Britt - Last Filed: 12/31/23 20:27> - Lab Data Result diagrams: 12/31/23 21:20 12/31/23 21:20 <Armen Muller - Last Filed: 01/01/24 00:02> - Medical Decision Making Quick note preformed and electronically signed by Sonali Britt PA-C (Sonali Britt) Was pt. sent in by a medical professional or institution ([facility], [facility], urgent care, hospital, or [facility]...) When possible be specific @ -No Did you speak to anyone other than the patient for history (EMS, parent, family, police, friend...)? What history was obtained from this source @ - is present and helps provide history including that patient forgot to take her blood pressure medications and has chronic high blood pressure that is generally on the high side still Did you review nursing and triage notes (agree or disagree)? Why? @ -I reviewed and agree with nursing and triage notes Were old charts reviewed (outside hosp., previous admission, EMS record, old EKG, old radiological studies, urgent care reports/EKG's, [facility] records)? Report findings @ -No old charts were reviewed Differential Diagnosis (chest pain, altered mental status, abdominal pain women, abdominal pain men, vaginal bleeding, weakness, fever, dyspnea, syncope, headache, dizziness, GI bleed, back pain, seizure, CVA, palpatations, mental health, musculoskeletal)? @ -Differential Weakness: Hypoglycemia, shock, sepsis, hyponatremia, anemia, infection, ID, ETOH, adverse medicine reaction, overdose, stroke, this is not meant to be an all-inclusive list. EKG interpreted by me (3pts min.). @ -As above X-rays interpreted by me (1pt min.). @ -Chest x-ray shows no acute process CT interpreted by me (1pt min.). @ -None done U/S interpreted by me (1pt. min.). @ -None done What testing was considered but not performed or refused? (CT, X-rays, U/S, labs)? Why? @ -None What meds were considered but not given or refused? Why? @ -None Did you discuss the management of the patient with other professionals (professionals i.e. , PA, [facility], lab, RT, psych nurse, high school social science teacher, speed belt sander, t eacher, civilian jail officer, case management assistant)? Give summary @ -No Was smoking cessation discussed for >3mins.? @ -No Was critical care preformed (if so, how long)? @ -No Were there social determinants of health that impacted care today? How? (Homelessness, low income, unemployed, alcoholism, drug addiction, transportation, low edu. Level, literacy, decrease access to med. care, residential, rehab)? @ -No Was there de-escalation of care discussed even if they declined (Discuss DNR or withdrawal of care, Hospice)? DNR status @ -No What co-morbidities impacted this encounter? (DM, HTN, Smoking, COPD, CAD, Cancer, CVA, ARF, Chemo, Hep., AIDS, mental health diagnosis, sleep apnea, morbid obesity)? @ -None Was patient admitted / discharged? Hospital course, mention meds given and route, prescriptions, significant lab abnormalities, going to OR and other pertinent info. @ -Patient presents with nonspecific symptoms with history of hypokalemia and hypomagnesemia. Magnesium replacement has been ordered. Blood pressure remains high and patient ordered additional blood pressure medication. Patient was seen in the waiting room secondary to no beds. Patient is made aware of hypertensive urgency and concern regarding this. Patient is recommended to have continued care including blood pressure control. Patient refuses this. Patient was made aware of risks. Family is present. Patient refuses to say and left AGAINST MEDICAL ADVICE. Undiagnosed new problem with uncertain prognosis? @ -No Drug Therapy requiring intensive monitoring for toxicity (Heparin, Nitro, Insulin, Cardizem)? @ -No Were any procedures done? @ -No Diagnosis/symptom? @ -Hypertensive urgency, hypomagnesemia Acute, or Chronic, or Acute on Chronic? @ -Acute, acute Uncomplicated (without systemic symptoms) or Complicated (systemic symptoms)? @ -Default Side effects of treatment? @ -No Exacerbation, Progression, or Severe Exacerbation? @ -No Poses a threat to life or bodily function? How? (Chest pain, USA, ID, pneumonia, PE, COPD, DKA, ARF, appy, cholecystitis, CVA, Diverticulitis, Homicidal, Suicidal, threat to staff... and all critical care pts) @ -No (Armen Muller) - Lab Data Lab Results 12/31/23 12/31/23 12/31/23 Range/Units 21:20 21:20 21:20 WBC 8.6 (3.8-10.6) k/uL RBC 4.43 (3.80-5.40) m/uL Hgb 13.9 (11.4-16.0) gm/dL Hct 42.7 (34.0-46.0) % MCV 96.4 (80.0-100.0) fL MCH 31.5 (25.0-35.0) pg MCHC 32.6 (31.0-37.0) g/dL RDW 13.1 (11.5-15.5) % Plt Count 152 (150-450) k/uL MPV 7.9 Neutrophils % 82 % Lymphocytes % 9 % Monocytes % 6 % Eosinophils % 0 % Basophils % 1 % Neutrophils # 7.1 (1.3-7.7) k/uL Lymphocytes # 0.8 L (1.0-4.8) k/uL Monocytes # 0.5 (0-1.0) k/uL Eosinophils # 0.0 (0-0.7) k/uL Basophils # 0.1 (0-0.2) k/uL PT 11.4 (10.0-12.5) sec INR 1.0 (<1.2) APTT 25.1 (22.0-30.0) sec Sodium 136 L (137-145) mmol/L Potassium 4.2 (3.5-5.1) mmol/L Chloride 102 (98-107) mmol/L Carbon Dioxide 25 (22-30) mmol/L Anion Gap 9 mmol/L BUN 9 (7-17) mg/dL Creatinine 0.48 L (0.52-1.04) mg/dL Est GFR (CKD-EPI)AfAm >90 (>60 ml/min/1.73 sqM) Est GFR (CKD-EPI)NonAf >90 (>60 ml/min/1.73 sqM) Glucose 122 H (74-99) mg/dL Calcium 9.0 (8.4-10.2) mg/dL Magnesium 1.3 L (1.6-2.3) mg/dL Total Bilirubin 1.8 H (0.2-1.3) mg/dL AST 118 H (14-36) U/L ALT 37 H (4-34) U/L Alkaline Phosphatase 176 H (38-126) U/L Troponin I (0.000-0.034) ng/mL Total Protein 8.1 (6.3-8.2) g/dL Albumin 4.0 (3.5-5.0) g/dL Urine Color Urine Appearance (Clear) Urine pH (5.0-8.0) Ur Specific Preston (1.001-1.035) Urine Protein (Negative) Urine Glucose (UA) (Negative) Urine Ketones (Negative) Urine Blood (Negative) Urine Nitrite (Negative) Urine Bilirubin (Negative) Urine Urobilinogen (<2.0) mg/dL Ur Leukocyte Esterase (Negative) Urine RBC (0-5) /hpf Urine WBC (0-5) /hpf Ur Squamous Epith Cells (0-4) /hpf Urine Mucus (None) /hpf 12/31/23 12/31/23 Range/Units 21:20 21:50 WBC (3.8-10.6) k/uL RBC (3.80-5.40) m/uL Hgb (11.4-16.0) gm/dL Hct (34.0-46.0) % MCV (80.0-100.0) fL MCH (25.0-35.0) pg MCHC (31.0-37.0) g/dL RDW (11.5-15.5) % Plt Count (150-450) k/uL MPV Neutrophils % % Lymphocytes % % Monocytes % % Eosinophils % % Basophils % % Neutrophils # (1.3-7.7) k/uL Lymphocytes # (1.0-4.8) k/uL Monocytes # (0-1.0) k/uL Eosinophils # (0-0.7) k/uL Basophils # (0-0.2) k/uL PT (10.0-12.5) sec INR (<1.2) APTT (22.0-30.0) sec Sodium (137-145) mmol/L Potassium (3.5-5.1) mmol/L Chloride (98-107) mmol/L Carbon Dioxide (22-30) mmol/L Anion Gap mmol/L BUN (7-17) mg/dL Creatinine (0.52-1.04) mg/dL Est GFR (CKD-EPI)AfAm (>60 ml/min/1.73 sqM) Est GFR (CKD-EPI)NonAf (>60 ml/min/1.73 sqM) Glucose (74-99) mg/dL Calcium (8.4-10.2) mg/dL Magnesium (1.6-2.3) mg/dL Total Bilirubin (0.2-1.3) mg/dL AST (14-36) U/L ALT (4-34) U/L Alkaline Phosphatase (38-126) U/L Troponin I <0.012 (0.000-0.034) ng/mL Total Protein (6.3-8.2) g/dL Albumin (3.5-5.0) g/dL Urine Color Yellow Urine Appearance Clear (Clear) Urine pH 8.5 H (5.0-8.0) Ur Specific Preston 1.027 (1.001-1.035) Urine Protein 1+ H (Negative) Urine Glucose (UA) Negative (Negative) Urine Ketones Negative (Negative) Urine Blood Negative (Negative) Urine Nitrite Negative (Negative) Urine Bilirubin Negative (Negative) Urine Urobilinogen 4.0 (<2.0) mg/dL Ur Leukocyte Esterase Negative (Negative) Urine RBC 1 (0-5) /hpf Urine WBC 1 (0-5) /hpf Ur Squamous Epith Cells 4 (0-4) /hpf Urine Mucus Rare H (None) /hpf Disposition <Sonali Britt - Last Filed: 12/31/23 20:27> Is patient prescribed a controlled substance at d/c from ED?: No Time of Disposition: 00:02 <Armen Muller - Last Filed: 01/01/24 00:02> Clinical Impression: Hypomagnesemia, Hypertensive urgency Disposition: LEFT AGAINST MEDICAL ADVICE Instructions (If sedation given, give patient instructions): Hypertension (ED), Hypertensive Crisis (ED) Additional Instructions: You are leaving AGAINST MEDICAL ADVICE. Please do follow-up with primary care physician in the morning. Please take your blood pressure medicine immediately. Please take your magnesium. Have your magnesium level rechecked by primary care physician in the next couple of days. Return for increased blood pressure, continued high blood pressure, worsening symptoms or any other concerns Referrals: Henna Doe MD [Primary Care Provider] - 1-2 days
--- NOTE | 2023-12-31 21:01 | XR ---
EXAMINATION TYPE: XR chest 2V DATE OF EXAM: 12/31/2023 COMPARISON: 02/15/2023 HISTORY: Syncope TECHNIQUE: Frontal and lateral views of the chest are obtained. Findings: There is persistent mild elevation the right hemidiaphragm. The lungs are clear of consolidative or abnormal interstitial opacity. There is no pleural effusion, pleural thickening or pneumothorax. The heart, pulmonary vasculature, mediastinum and hilum appear normal. The osseous structures soft tissues unremarkable. IMPRESSION: No acute cardiopulmonary disease with no interval change
[2023-12-31 21:37] LABS: Basophils # (A) 0.1 k/uL (0-0.2); Basophils % (A) 1 %; Eosinophils % (A) 0 %; HCT 42.7 % (34.0-46.0); HGB 13.9 gm/dL (11.4-16.0); Lymphocytes # (A) 0.8 k/uL (1.0-4.8); Lymphocytes % (A) 9 %; MCH 31.5 pg (25.0-35.0); MCHC 32.6 g/dL (31.0-37.0); MCV 96.4 fL (80.0-100.0); Mean Platelet Volume 7.9; Monocytes # (A) 0.5 k/uL (0-1.0); Monocytes % (A) 6 %; Neutrophils # (A) 7.1 k/uL (1.3-7.7); Neutrophils % (A) 82 %; Platelet Count 152 k/uL (150-450); RBC 4.43 m/uL (3.80-5.40); RDW 13.1 % (11.5-15.5); WBC 8.6 k/uL (3.8-10.6)
[2023-12-31 21:47] LABS: Partial Thromboplastin Time 25.1 sec (22.0-30.0); Prothrombin Time 11.4 sec (10.0-12.5)
[2023-12-31 21:48] LABS: ALT 37 U/L (4-34); AST 118 U/L (14-36); African American GFR (CKD) >90 (>60 ml/min/1.73 sqM); Alkaline Phosphatase 176 U/L (38-126); Anion Gap 9 mmol/L; Blood Urea Nitrogen 9 mg/dL (7-17); Carbon Dioxide 25 mmol/L (22-30); Chloride 102 mmol/L (98-107); Glucose 122 mg/dL (74-99); Magnesium 1.3 mg/dL (1.6-2.3); Non-African American GFR(CKD) >90 (>60 ml/min/1.73 sqM); Potassium 4.2 mmol/L (3.5-5.1); Sodium 136 mmol/L (137-145); Total Bilirubin 1.8 mg/dL (0.2-1.3); Total Protein 8.1 g/dL (6.3-8.2)
[2023-12-31 22:08] LABS: Appearance,Urine Clear (Clear); Bilirubin,Urine Negative (Negative); Blood,Urine Negative (Negative); Color,Urine Yellow; Glucose,Urine (UA) Negative (Negative); Ketones,Urine Negative (Negative); Leukocyte Esterase,Urine Negative (Negative); Mucus,Urine Rare /hpf; Nitrite,Urine Negative (Negative); PH, Urine 8.5 (5.0-8.0); Protein,Urine 1+ (Negative); RBC,Urine 1 /hpf (0-5); Specific Gravity,Urine 1.027 (1.001-1.035); Squamous Epithelial Cell,Urine 4 /hpf (0-4); WBC,Urine 1 /hpf (0-5)
[2024-01-01] MEDS: amLODIPine 5 MG TAB PO STA (00:04)
[2024-01-01] MEDS: MAGNESIUM OXIDE 400 MG TAB PO STA ×2 (00:04→01:47)
[2024-01-01] MEDS: ENALAPRILAT 1.25 MG/ML 1 ML VIAL IVP STA (00:04)
[2024-01-01] MEDS: LABETALOL 5 MG/ML VIAL MDV IVP STA (01:36)
[2024-01-01] MEDS: cloNIDine HCL 0.2 MG TAB PO STA (02:04)
[2024-01-01 02:22] VITALS: TEMP 98
[2024-01-01 03:04] VITALS: RESP 18
[2024-01-01 03:44] VITALS: BP 141/82; PULSE 70
== END 2024-01-01 03:09 | disposition left against medical advice (07) ==
LOC: EC 20:02
DX: E83.42 Hypomagnesemia (principal); I16.0 Hypertensive urgency; F17.200 Nicotine dependence, unspecified, uncomplicated; Z90.49 Acquired absence of other specified parts of digestive tract; Z88.5 Allergy status to narcotic agent
CPT/HCPCS: 36415; 71046; 80053; 81001; 83735; 84484; 85025; 85610; 85730; 93005; 96374; 96375; 99284

== ENCOUNTER 2024-09-13 16:24 | Inpatient (IN) | payer OTHER ==
--- NOTE | 2024-09-13 16:52 | ED ---
Fall HPI - General Chief Complaint: Fall Stated Complaint: fall Time Seen by Provider: 09/13/24 16:47 Source: patient, RN notes reviewed Mode of arrival: ambulatory - History of Present Illness Initial Comments: 59-year-old female with history of liver disease, hypertension, and hyperlipidemia presenting to the ER with family for multiple complaints. States she was walking in her home last night and stumbled over her feet, falling and striking her head on the linoleum floor. States she did not lose consciousness. No other injuries from the fall. Denies blood thinners. States she has been experiencing diarrhea for the past 2 days. Admits about 3 bouts over the past 2 days. Denies fever, abdominal pain, blood in stool, vomiting, recent antibiotic use, recent travel. She is tolerating orals well. Family is at bedside and reports they are concerned that patient has been yellow in color lately. Patient states she follows with Dr. Arevalo's PA every 6 months for liver disease. Patient and family at bedside explained that patient found her on the floor of their home several hours ago. Patient's sister in law pulls me aside to explain that she believes pt is an alcoholic. Pt states last drink was yesterday. - Related Data Home Medications Medication Instructions Recorded Confirmed ALPRAZolam [Xanax] 0.25 mg PO DAILY PRN 01/01/23 09/13/24 Ezetimibe [Zetia] 10 mg PO DAILY 01/01/23 09/13/24 Omeprazole 20 mg PO DAILY 01/01/23 09/13/24 Zolpidem Tartrate [Ambien] 10 mg PO HS PRN 01/01/23 09/13/24 amLODIPine [Norvasc] 2.5 mg PO DAILY 11/30/23 09/13/24 hydroCHLOROthiazide 12.5 mg PO DAILY 11/30/23 09/13/24 Previous Rx's Medication Instructions Recorded lisinopriL [Zestril] 20 mg PO BID #30 tab 02/17/23 Allergies Allergy/AdvReac Type Severity Reaction Status Date / Time codeine Allergy Itching & Verified 09/13/24 18:29 ears ringing Review of Systems ROS Statement: Those systems with pertinent positive or pertinent negative responses have been documented in the HPI. ROS Other: All systems not noted in ROS Statement are negative. Past Medical History Past Medical History: GERD/Reflux, Hyperlipidemia, Hypertension, Liver Disease Additional Past Medical History / Comment(s): fatty liver, History of Any Multi-Drug Resistant Organisms: None Reported Past Surgical History: Section, Cholecystectomy, Orthopedic Surgery Additional Past Surgical History / Comment(s): rt foot surgery. colonosopy Past Anesthesia/Blood Transfusion Reactions: No Reported Reaction Past Psychological History: Anxiety Smoking Status: Former smoker, Light tobacco smoker Past Alcohol Use History: Daily Past Drug Use History: Marijuana - Past Family History Mother Family Medical History: CVA/TIA Father Family Medical History: Cancer Additional Family Medical History / Comment(s): lung cancer General Exam Limitations: no limitations General appearance: alert, in no apparent distress Head exam: Present: normocephalic, other (Small abrasion on posterior aspect of scalp with no active bleeding.) Eye exam: Present: PERRL, EOMI, scleral icterus. Absent: normal appearance, conjunctival injection, periorbital swelling ENT exam: Present: normal exam, normal oropharynx, mucous membranes moist Neck exam: Present: normal inspection. Absent: tenderness, meningismus, lymphadenopathy Respiratory exam: Present: normal lung sounds bilaterally. Absent: respiratory distress, wheezes, rales, rhonchi, stridor Cardiovascular Exam: Present: regular rate, normal rhythm, normal heart sounds. Absent: systolic murmur, diastolic murmur, rubs, gallop, clicks GI/Abdominal exam: Present: soft, normal bowel sounds. Absent: distended, tenderness, guarding, rebound, rigid Neurological exam: Present: alert, oriented X3 Psychiatric exam: Present: normal affect, normal mood Skin exam: Present: warm, dry, intact, normal color. Absent: rash Course Vital Signs 09/13/24 09/13/24 09/13/24 16:25 17:20 20:10 Temperature 97.7 F Pulse Rate 94 87 Respiratory 18 16 16 Rate Blood Pressure 100/70 98/58 95/67 O2 Sat by Pulse 100 100 96 Oximetry Medical Decision Making - Medical Decision Making Was pt. sent in by a medical professional or institution (, PA, MACHINE BRUSH MAKER, urgent care, hospital, or assisted...) When possible be specific @ -No Did you speak to anyone other than the patient for history (EMS, parent, family, police, friend...)? What history was obtained from this source @ -Family at bedside supplementing history Did you review nursing and triage notes (agree or disagree)? Why? @ -I reviewed and agree with nursing and triage notes Were old charts reviewed (outside hosp., previous admission, EMS record, old EKG, old radiological studies, urgent care reports/EKG's, assisted records)? Report findings @ -No old charts were reviewed Differential Diagnosis (chest pain, altered mental status, abdominal pain women, abdominal pain men, vaginal bleeding, weakness, fever, dyspnea, syncope, headache, dizziness, GI bleed, back pain, seizure, CVA, palpatations, mental health, musculoskeletal)? @ -Differential Musculoskeletal Muscular strain, contusion, ligament sprain, fracture, arthritis, septic arthritis, bursitis, cellulitis, muscle spasm, nerve compression, DVT, arterial occlusion, herpes zoster, electrolyte abnormality, tumor.... This is not meant to be in all inclusive list intracranial bleed, Concussion, skull fracture EKG interpreted by me (3pts min.). @ -None X-rays interpreted by me (1pt min.). @ -None done CT interpreted by me (1pt min.). @ -CT brain and C-spine revealed no acute process, CT abdomen pelvis reveals hepatic steatosis with nodular contour to the liver with evidence of portal hypertension, no biliary dilation. Ultrasound right upper quadrant revealed no acute process, there is hepatic steatosis with hepatomegaly U/S interpreted by me (1pt. min.). @ -None done What testing was considered but not performed or refused? (CT, X-rays, U/S, labs)? Why? @ -None What meds were considered but not given or refused? Why? @ -None Did you discuss the management of the patient with other professionals (professionals i.e. , PA, MACHINE BRUSH MAKER, lab, RT, psych nurse, social media intern, roll press operator, teacher, zoology technical officer, case advocate)? Give summary @ -I spoke with Dr. Holguin who accepts admission Was smoking cessation discussed for >3mins.? @ -No Was critical care preformed (if so, how long)? @ -No Were there social determinants of health that impacted care today? How? (Homelessness, low income, unemployed, alcoholism, drug addiction, transportation, low edu. Level, literacy, decrease access to med. care, alf, rehab)? @ -No Was there de-escalation of care discussed even if they declined (Discuss DNR or withdrawal of care, Hospice)? DNR status @ -No What co-morbidities impacted this encounter? (DM, HTN, Smoking, COPD, CAD, Cancer, CVA, ARF, Chemo, Hep., AIDS, mental health diagnosis, sleep apnea, morbid obesity)? @ -None Was patient admitted / discharged? Hospital course, mention meds given and route, prescriptions, significant lab abnormalities, going to OR and other pertinent info. @ - Admitted. 59-year-old female with head injury last night and diarrhea x 3 days. No abdominal pain, no loss of consciousness. No blood thinners. Appears jaundiced on examination. Patient is provided with IV fluids for supportive care. CT brain and C-spine revealed no acute process. Lab work was concerning for hepatitis, bilirubin 11.5, AST 114, alkaline phosphate 272, magnesium 0.8, potassium 2.3. CT abdomen pelvis was obtained which revealed hepatic steatosis with nodular contour to the liver with evidence of portal hypertension. Ultrasound right upper quadrant with no acute process however there is hepatic steatosis with hepatomegaly. Results discussed with patient and family. Patient was started on IV calcium gluconate, magnesium sulfate, and potassium. I spoke with Dr. Holguin who accepts admission. Discussed with patient and family that we do not have GI service available this weekend although it appears unlikely that patient will need emergent GI intervention at this time. Offered transfer however patient and family opted for admission at this hospital. Case was discussed in detail with my ED attending Dr. Barajas. Undiagnosed new problem with uncertain prognosis? @ -No Drug Therapy requiring intensive monitoring for toxicity (Heparin, Nitro, Insulin, Cardizem)? @ -No Were any procedures done? @ -No Diagnosis/symptom? @ -Hypokalemia, hypomagnesemia Acute, or Chronic, or Acute on Chronic? @ -Acute Uncomplicated (without systemic symptoms) or Complicated (systemic symptoms)? @ -Complicated Side effects of treatment? @ -No Exacerbation, Progression, or Severe Exacerbation? @ -No Poses a threat to life or bodily function? How? (Chest pain, USA, MS, pneumonia, PE, COPD, DKA, ARF, appy, cholecystitis, CVA, Diverticulitis, Homicidal, Suicidal, threat to staff... and all critical care pts) @ -Yes - Lab Data Result diagrams: 09/13/24 16:58 09/13/24 16:58 Lab Results 09/13/24 09/13/24 09/13/24 Range/Units 16:58 16:58 16:58 WBC 11.1 H (3.8-10.6) k/uL RBC 2.76 L (3.80-5.40) m/uL Hgb 9.8 L (11.4-16.0) gm/dL Hct 28.6 L (34.0-46.0) % MCV 103.7 H (80.0-100.0) fL MCH 35.6 H (25.0-35.0) pg MCHC 34.3 (31.0-37.0) g/dL RDW 15.5 (11.5-15.5) % Plt Count 173 (150-450) k/uL MPV 9.2 Neutrophils % 84 % Lymphocytes % 10 % Monocytes % 4 % Eosinophils % 1 % Basophils % 1 % Neutrophils # 9.3 H (1.3-7.7) k/uL Lymphocytes # 1.1 (1.0-4.8) k/uL Monocytes # 0.4 (0-1.0) k/uL Eosinophils # 0.1 (0-0.7) k/uL Basophils # 0.1 (0-0.2) k/uL Macrocytosis Moderate Sodium 131 L (137-145) mmol/L Potassium 2.3 L* (3.5-5.1) mmol/L Chloride 87 L (98-107) mmol/L Carbon Dioxide 24 (22-30) mmol/L Anion Gap 20 mmol/L BUN 22 H (7-17) mg/dL Creatinine 1.46 H (0.52-1.04) mg/dL Est GFR (CKD-EPI)AfAm 45 (>60 ml/min/1.73 sqM) Est GFR (CKD-EPI)NonAf 39 (>60 ml/min/1.73 sqM) Glucose 96 (74-99) mg/dL Lactic Ac Sepsis Rflx Plasma Lactic Acid Julien 2.9 H* (0.7-2.0) mmol/L Calcium 6.6 L (8.4-10.2) mg/dL Ionized Calcium Nate (4.5-5.3) mg/dL Phosphorus (2.5-4.5) mg/dL Magnesium (1.6-2.3) mg/dL Total Bilirubin 11.5 H (0.2-1.3) mg/dL AST 114 H (14-36) U/L ALT 18 (4-34) U/L Alkaline Phosphatase 272 H (38-126) U/L Ammonia (<30) umol/L Total Protein 8.2 (6.3-8.2) g/dL Albumin 3.6 (3.5-5.0) g/dL Lipase (23-300) U/L Salicylates mg/dL Acetaminophen ug/mL Influenza Type A (PCR) (Not Detectd) Influenza Type B (PCR) (Not Detectd) RSV (PCR) (Not Detectd) SARS-CoV-2 (PCR) (Not Detectd) 09/13/24 09/13/24 09/13/24 Range/Units 16:58 16:58 18:09 WBC (3.8-10.6) k/uL RBC (3.80-5.40) m/uL Hgb (11.4-16.0) gm/dL Hct (34.0-46.0) % MCV (80.0-100.0) fL MCH (25.0-35.0) pg MCHC (31.0-37.0) g/dL RDW (11.5-15.5) % Plt Count (150-450) k/uL MPV Neutrophils % % Lymphocytes % % Monocytes % % Eosinophils % % Basophils % % Neutrophils # (1.3-7.7) k/uL Lymphocytes # (1.0-4.8) k/uL Monocytes # (0-1.0) k/uL Eosinophils # (0-0.7) k/uL Basophils # (0-0.2) k/uL Macrocytosis Sodium (137-145) mmol/L Potassium (3.5-5.1) mmol/L Chloride (98-107) mmol/L Carbon Dioxide (22-30) mmol/L Anion Gap mmol/L BUN (7-17) mg/dL Creatinine (0.52-1.04) mg/dL Est GFR (CKD-EPI)AfAm (>60 ml/min/1.73 sqM) Est GFR (CKD-EPI)NonAf (>60 ml/min/1.73 sqM) Glucose (74-99) mg/dL Lactic Ac Sepsis Rflx Y Plasma Lactic Acid Julien (0.7-2.0) mmol/L Calcium (8.4-10.2) mg/dL Ionized Calcium Nate (4.5-5.3) mg/dL Phosphorus 2.5 (2.5-4.5) mg/dL Magnesium 0.8 L* (1.6-2.3) mg/dL Total Bilirubin (0.2-1.3) mg/dL AST (14-36) U/L ALT (4-34) U/L Alkaline Phosphatase (38-126) U/L Ammonia (<30) umol/L Total Protein (6.3-8.2) g/dL Albumin (3.5-5.0) g/dL Lipase 202 (23-300) U/L Salicylates <1.0 mg/dL Acetaminophen <10.0 ug/mL Influenza Type A (PCR) Not Detected (Not Detectd) Influenza Type B (PCR) Not Detected (Not Detectd) RSV (PCR) Not Detected (Not Detectd) SARS-CoV-2 (PCR) Not Detected (Not Detectd) 09/13/24 09/13/24 09/13/24 Range/Units 19:35 19:51 20:22 WBC (3.8-10.6) k/uL RBC (3.80-5.40) m/uL Hgb (11.4-16.0) gm/dL Hct (34.0-46.0) % MCV (80.0-100.0) fL MCH (25.0-35.0) pg MCHC (31.0-37.0) g/dL RDW (11.5-15.5) % Plt Count (150-450) k/uL MPV Neutrophils % % Lymphocytes % % Monocytes % % Eosinophils % % Basophils % % Neutrophils # (1.3-7.7) k/uL Lymphocytes # (1.0-4.8) k/uL Monocytes # (0-1.0) k/uL Eosinophils # (0-0.7) k/uL Basophils # (0-0.2) k/uL Macrocytosis Sodium (137-145) mmol/L Potassium (3.5-5.1) mmol/L Chloride (98-107) mmol/L Carbon Dioxide (22-30) mmol/L Anion Gap mmol/L BUN (7-17) mg/dL Creatinine (0.52-1.04) mg/dL Est GFR (CKD-EPI)AfAm (>60 ml/min/1.73 sqM) Est GFR (CKD-EPI)NonAf (>60 ml/min/1.73 sqM) Glucose (74-99) mg/dL Lactic Ac Sepsis Rflx Plasma Lactic Acid Julien 1.9 (0.7-2.0) mmol/L Calcium (8.4-10.2) mg/dL Ionized Calcium Nate 3.1 L* (4.5-5.3) mg/dL Phosphorus (2.5-4.5) mg/dL Magnesium (1.6-2.3) mg/dL Total Bilirubin (0.2-1.3) mg/dL AST (14-36) U/L ALT (4-34) U/L Alkaline Phosphatase (38-126) U/L Ammonia 44 H (<30) umol/L Total Protein (6.3-8.2) g/dL Albumin (3.5-5.0) g/dL Lipase (23-300) U/L Salicylates mg/dL Acetaminophen ug/mL Influenza Type A (PCR) (Not Detectd) Influenza Type B (PCR) (Not Detectd) RSV (PCR) (Not Detectd) SARS-CoV-2 (PCR) (Not Detectd) Disposition Clinical Impression: Hypokalemia, Hypomagnesemia Disposition: ADMITTED IP TO THIS HOSP Referrals: Henna Doe MD [Primary Care Provider] - 1-2 days Time of Disposition: 20:49
[2024-09-13 17:33] LABS: Basophils # (A) 0.1 k/uL (0-0.2); Basophils % (A) 1 %; Eosinophils # (A) 0.1 k/uL (0-0.7); Eosinophils % (A) 1 %; HCT 28.6 % (34.0-46.0); HGB 9.8 gm/dL (11.4-16.0); Lymphocytes # (A) 1.1 k/uL (1.0-4.8); Lymphocytes % (A) 10 %; MCH 35.6 pg (25.0-35.0); MCHC 34.3 g/dL (31.0-37.0); MCV 103.7 fL (80.0-100.0); Macrocytosis Moderate; Mean Platelet Volume 9.2; Monocytes # (A) 0.4 k/uL (0-1.0); Monocytes % (A) 4 %; Neutrophils # (A) 9.3 k/uL (1.3-7.7); Neutrophils % (A) 84 %; Platelet Count 173 k/uL (150-450); RBC 2.76 m/uL (3.80-5.40); RDW 15.5 % (11.5-15.5); WBC 11.1 k/uL (3.8-10.6)
[2024-09-13 17:45] LABS: ALT 18 U/L (4-34); AST 114 U/L (14-36); African American GFR (CKD) 45 (>60 ml/min/1.73 sqM); Albumin 3.6 g/dL (3.5-5.0); Alkaline Phosphatase 272 U/L (38-126); Anion Gap 20 mmol/L; Blood Urea Nitrogen 22 mg/dL (7-17); Calcium 6.6 mg/dL (8.4-10.2); Carbon Dioxide 24 mmol/L (22-30); Chloride 87 mmol/L (98-107); Glucose 96 mg/dL (74-99); Non-African American GFR(CKD) 39 (>60 ml/min/1.73 sqM); Sodium 131 mmol/L (137-145); Total Bilirubin 11.5 mg/dL (0.2-1.3); Total Protein 8.2 g/dL (6.3-8.2)
[2024-09-13 18:07] LABS: Potassium 2.3 mmol/L (3.5-5.1)
[2024-09-13 18:08] LABS: Influenza A Not Detected (Not Detectd); Influenza B Not Detected (Not Detectd); RSV Not Detected (Not Detectd)
--- NOTE | 2024-09-13 18:16 | CT ---
EXAMINATION TYPE: CT brain cspine wo con DATE OF EXAM: 09/13/2024 5:58 PM COMPARISON: None. CLINICAL INDICATION: Female, 59 years old with history of pain; Fall, yesterday., pain TECHNIQUE: Brain: Multiple axial CT images of the brain were obtained without IV contrast. Cspine: Axial CT images from the skull base to the inferior aspect of T2 we obtained without intraven ous contrast. Coronal and sagittal reformatted images were also reviewed. . CT DLP: 1500.1 mGycm, Automated exposure control for dose reduction was used. FINDINGS: Brain: Extra-axial spaces: No abnormal extra-axial fluid collections. Ventricular system: Within normal limits Cerebral parenchyma: No acute intraparenchymal hemorrhage or mass effect. The wright-white junction is well differentiated. Cerebellum: Unremarkable. Mass effect: No evidence of midline shift. Intracranial vasculature: unremarkable Soft tissues: Normal. Calvarium/osseous structures: No depressed skull fracture. Paranasal sinuses and mastoid air cells: Clear. Visualized orbits: Orbital contents are intact. Cervical spine: Fracture: None. Osseous structures: Multilevel degenerative disc disease changes with endplate spurring and disc oste ophyte complex's. Vertebral alignment: Within normal limits. Spinal canal/Neural Foramina: No evidence of significant spinal canal narrowing. No evidence for sign ificant neural foraminal stenosis. Neck soft tissues: Prevertebral soft tissues are within normal limits. Other: The airway is patent. The lung apices are clear. IMPRESSION: 1. No acute intracranial process. 2. No evidence of cervical spine fracture. 3. Mild multilevel degenerative disc disease. [facility], , 09/13/2024 6:14 PM
[2024-09-13] MEDS: SODIUM CHLORIDE 0.9% 1,000 ML IV STA ×2 (19:15→19:16)
[2024-09-13 19:21] LABS: Acetaminophen <10.0 ug/mL; Lipase 202 U/L (23-300); Phosphorus 2.5 mg/dL (2.5-4.5); Salicylate <1.0 mg/dL
--- NOTE | 2024-09-13 19:24 | US ---
EXAMINATION TYPE: US gallbladder DATE OF EXAM: 09/13/2024 COMPARISON: NONE CLINICAL INDICATION: Female, 59 years old with history of pain; pain gb removed evaluated CBD. TECHNIQUE: Grayscale and color Doppler imaging of the right upper quadrant was performed. FINDINGS: EXAM MEASUREMENTS: Liver Length: 21.5 cm Gallbladder Wall: Surgically absent CBD: .7 cm Right Kidney: 12.2 x 5.0 x 4.7 cm VICE PRESIDENT REGULATORY NOTES: Pancreas: Obscured by bowel gas Liver: Increased attenuation hepatomegaly. Gallbladder: Surgically absent Evidence for sonographic Tucker's sign: No CBD: No stone seen in portions visualized. Right Kidney: No hydronephrosis or masses seen IMPRESSION: 1. No evidence for acute process. 2. Hepatic steatosis with hepatomegaly. [facility], , 09/13/2024 7:22 PM
[2024-09-13 19:40] LABS: Magnesium 0.8 mg/dL (1.6-2.3)
[2024-09-13] MEDS: POTASSIUM CHLORIDE 10 MEQ in WATER FOR INJECTION 1 100ML.BAG IVPB SCH (19:49)
[2024-09-13] MEDS: SODIUM CHLORIDE 0.9% 500 ML 500 ML IV STA (19:56)
--- NOTE | 2024-09-13 19:58 | CT ---
EXAMINATION TYPE: CT abdomen pelvis w con DATE OF EXAM: 09/13/2024 7:34 PM COMPARISON: CT abdomen pelvis most recent from CLINICAL INDICATION: Female, 59 years old with history of pain; Jaundice. Liver disease. Diarrhea. TECHNIQUE: Axial CT abdomen pelvis w con;Sagittal and coronal reformats were created on a separate w orkstation. Contrast used:70 ml mL of Isovue 300 with IV Contrast, (none if empty) Oral contrast used: without Oral Contrast (none if empty) CT DLP: 1360.1 mGycm, Automated exposure control for dose reduction was used. FINDINGS: LOWER CHEST: Unremarkable ABDOMEN LIVER: No to the liver with respect of the spine spleen. No suspicious lesions very subtle nodularity to liver. GALLBLADDER AND BILE DUCTS: Gallbladder is surgically absent. PANCREAS: Unremarkable. SPLEEN: Unremarkable. ADRENAL GLANDS: Unremarkable. KIDNEYS AND URETERS: No evidence of hydronephrosis or renal calculus. The ureters are unremarkable. PELVIS BLADDER: No evidence for wall thickening or mass given limitations of exam. REPRODUCTIVE: Unremarkable. ABDOMEN & PELVIS STOMACH AND BOWEL: No evidence of bowel obstruction. Second portion duodenal diverticulum. Scattered colonic diverticula. PERITONEUM/RETROPERITONEUM: No evidence of pneumoperitoneum. Trace free fluid throughout the abdomen. . VASCULATURE: No evidence of aortic aneurysm. Dilated portal vein up to 17 mm MUSCULOSKELETAL: No acute osseous abnormalities LYMPH NODES: No gross evidence for lymphadenopathy. SOFT TISSUE/ABDOMINAL WALL: Ventral wall fat-containing hernia with some inflammation changes measuri ng 13 mm at the neck. Fat-containing umbilical hernia. IMPRESSION: 1. Hepatic steatosis with nodular contour to liver with evidence of portal hypertension. No evidence for biliary dilation. Correlate for early hepatic cirrhosis. 2. Colonic diverticulosis. 3. Ventral wall fat-containing hernia with inflammation correlate for strangulated omental fat-conta ining hernia. [facility], , 09/13/2024 7:55 PM
[2024-09-13] MEDS: MAGNESIUM SULFATE-D5W PMX 1 GM in DEXTROSE/WATER 1 100ML.BAG IVPB SCH (20:16)
[2024-09-13] MEDS: SODIUM CHLORIDE 0.9% 1,000 ML IV SCH (20:19)
[2024-09-13] MEDS ORDERED: ONDANSETRON 4 MG/2 ML VIAL IVP PRN (20:28)
[2024-09-13] MEDS ORDERED: NALOXONE 0.4 MG/ML 1 ML VIAL IV PRN (20:28)
[2024-09-13] MEDS ORDERED: IBUPROFEN 400 MG TAB PO PRN (20:28)
[2024-09-13] MEDS: LORazepam 0.5 MG TAB PO PRN (20:50)
[2024-09-13] MEDS: CALCIUM GLUCONATE IN NACL 2 GM in SALINE 1 100ML.BAG IVPB ONE (20:56)
[2024-09-13] MEDS: LACTULOSE 20 GM/30 ML CUP PO ONE (21:29)
[2024-09-13] MEDS ORDERED: LORazepam 1 MG TAB PO PRN ×3 (21:31)
[2024-09-13] MEDS: MAGNESIUM OXIDE 400 MG TAB PO STA (21:34)
[2024-09-13] MEDS: MAGNESIUM OXIDE 400 MG TAB PO SCH (22:24)
[2024-09-13] MEDS: POTASSIUM BICARBONATE/CIT AC 20 MEQ TABLET.EFF PO ONE (22:26)
[2024-09-14 07:39] LABS: ALT 13 U/L (4-34); AST 82 U/L (14-36); African American GFR (CKD) 79 (>60 ml/min/1.73 sqM); Albumin 2.5 g/dL (3.5-5.0); Alkaline Phosphatase 204 U/L (38-126); Anion Gap 10 mmol/L; Blood Urea Nitrogen 17 mg/dL (7-17); Carbon Dioxide 27 mmol/L (22-30); Chloride 93 mmol/L (98-107); Glucose 101 mg/dL (74-99); Non-African American GFR(CKD) 69 (>60 ml/min/1.73 sqM); Sodium 130 mmol/L (137-145); Total Bilirubin 8.4 mg/dL (0.2-1.3); Total Protein 5.9 g/dL (6.3-8.2)
[2024-09-14 07:45] LABS: Potassium 2.4 mmol/L (3.5-5.1)
[2024-09-14] MEDS ORDERED: Potassium Replacement Protocol 1 EACH MISC MISCELLANE PRN (08:34)
[2024-09-14] MEDS ORDERED: POTASSIUM CHLORIDE ER 20 MEQ TAB.ER PO ONE (09:00)
[2024-09-14] MEDS: POTASSIUM CHLORIDE ER 20 MEQ TAB.ER PO SCH ×2 (09:17→20:25)
[2024-09-14] MEDS: CALCIUM CARB-VIT D 500 MG-5 MCG TAB PO SCH (09:17)
[2024-09-14] MEDS: LACTATED RINGERS 1,000 ML IV SCH (09:22)
[2024-09-14] MEDS ORDERED: ZOLPIDEM 5 MG TAB PO PRN (12:25)
[2024-09-14 12:54] LABS: Hepatitis A Antibody IgM Nonreactive (Nonreactive); Hepatitis B Core IgM Nonreactive (Nonreactive); Hepatitis B Surface Antigen Nonreactive (Nonreactive); Hepatitis C IgG Antibody Nonreactive (Nonreactive)
--- NOTE | 2024-09-14 16:42 | P.HPIM ---
History of Present Illness H&P Date: 09/14/24 Chief Complaint: Loose stool Pleasant 59-year-old patient follows with Dr. Henna Doe. Chronic medical condition include GERD, hyperlipidemia, essential hypertension, alcoholic liver disease follows at the office of Dr. Jeremy Arevalo. Patient reported she was walking in her room last night and stumbled over her feet and fell striking her head on the linoleum floor. Did not lose consciousness. No other injuries. For last couple of days patient's had about 2 bowel movements a day. Still somewhat soft. Has been running very weak and tired. Patient lost her a day before. Patient does drink at least 4 glasses of 5 ounce of wine a day including a mixed drink. Drinking for quite to 20 years. Also found to be icteric. Review of systems: GEN.: Tired EYES: Yellowness HEENT: None NECK: None RESPIRATORY: None CARDIOVASCULAR: None GASTROINTESTINAL: None GENITOURINARY: None MUSCULOSKELETAL: Some joint pains LYMPHATICS: None HEMATOLOGICAL: None PSYCHIATRY: None NEUROLOGICAL: None Social history: Patient a day ago. There is a small amount of marijuana daily. Drinks about 4 glasses of 5 ounce wine daily and a mixed drink. For 20 years. Physical examination: VITAL SIGNS: 98.2, 84, 17, 93 x 51, 96% room air GENERAL: BMI 31.6, reclining bed awake a bit tired appearing. EYES: Pupils equal. Conjunctiva yellow l. HEENT: External appearance of nose and ears normal, oral cavity grossly normal. NECK: JVD not raised; masses not palpable. HEART: First and second heart sounds are normal; no edema. LUNGS: Respiratory rate normal; clear to auscultation. ABDOMEN: Soft, nontender, liver spleen not palpable, no masses palpable. PSYCH: Alert and oriented x3; mood and affect jeff l. MUSCULOSKELETAL:No Clubbing/cyanosis;muscles-grossly intact. OA NEUROLOGICAL: Cranial nerves grossly intact; no facial asymmetry, power and sensation grossly intact. LYMPHATICS: No lymph nodes palpable in the axilla and neck INVESTIGATIONS, reviewed in the clinical context: September 14: Sodium 130 potassium 2.4 BUN 17 creatinine 0.92 calcium 6 total bilirubin 8.4 alkaline phosphatase 204 ammonia 44 albumin 2.5 September 13: White count 9.1 hemoglobin 9.8 platelets 173 sodium 131 potassium 2.3 BUN 22 creatinine 1.46 magnesium 0.8 total bilirubin 11.5 AST 114 ALT 18 alkaline phosphatase 272 Hepatitis A IgM, hepatitis B surface antigen, hepatitis B core IgM, hepatitis C IgG, influenza type A, type B, RSV, COVID-19: All negative Head cervical spine CT: Mild DJD Ultrasound gallbladder: Liver increased attenuation hepatomegaly. CT abdomen pelvis: Hepatic steatosis with nodular contour with evidence of portal hypertension. Colonic diverticulosis. Ventral wall fat-containing hernia. Assessment plan: -Acute myopathy from severe hypokalemia hypomagnesemia, resulting in falls Aggressive replacement of magnesium and potassium -Severe hypokalemia Telemetry. Replace -Severe hypomagnesemia Replace magnesium -Alcohol use disorder CIWA scale. Thiamine. Multivitamin. Valium 2 mg 3 times daily for DVT prophylaxis -Probable early stages of cirrhosis from alcoholism Patient does follow with Dr. Jeremy Arevalo outpatient -Acute alcoholic hepatitis Follow LFTs -Hyperbilirubinemia from alcohol liver disease Follow labs -Full code Care was discussed with patient. Questions answered. Given the complexity and severity of patient's condition expect the patient to be in the hospital at least for 2 overnights Past Medical History Past Medical History: GERD/Reflux, Hyperlipidemia, Hypertension, Liver Disease Additional Past Medical History / Comment(s): fatty liver, History of Any Multi-Drug Resistant Organisms: None Reported Past Surgical History: Section, Cholecystectomy, Orthopedic Surgery Additional Past Surgical History / Comment(s): rt foot surgery. colonosopy Past Anesthesia/Blood Transfusion Reactions: No Reported Reaction Past Psychological History: Anxiety Smoking Status: Former smoker, Light tobacco smoker Past Alcohol Use History: Daily Additional Past Alcohol Use History / Comment(s): quit 28yrs ago Past Drug Use History: Marijuana Additional Drug Use History / Comment(s): thc edibles and occasional smoking. pt aware not to use 24 hrs before procedure. - Past Family History Mother Family Medical History: CVA/TIA Father Family Medical History: Cancer Additional Family Medical History / Comment(s): lung cancer Medications and Allergies Home Medications Medication Instructions Recorded Confirmed Type ALPRAZolam [Xanax] 0.25 mg PO DAILY PRN 01/01/23 09/13/24 History Ezetimibe [Zetia] 10 mg PO DAILY 01/01/23 09/13/24 History Omeprazole 20 mg PO DAILY 01/01/23 09/13/24 History Zolpidem Tartrate [Ambien] 10 mg PO HS PRN 01/01/23 09/13/24 History lisinopriL [Zestril] 20 mg PO BID #30 tab 02/17/23 09/13/24 Rx amLODIPine [Norvasc] 2.5 mg PO DAILY 11/30/23 09/13/24 History hydroCHLOROthiazide 12.5 mg PO DAILY 11/30/23 09/13/24 History Allergies Allergy/AdvReac Type Severity Reaction Status Date / Time codeine Allergy Itching & Verified 09/13/24 18:29 ears ringing Physical Exam Vitals: Vital Signs Temp Pulse Pulse Resp BP BP Pulse Ox 09/14/24 11:53 98.2 F 84 17 93/51 96 09/14/24 08:30 97.0 F L 87 17 94/52 97 09/14/24 08:00 87 17 09/14/24 03:26 98.2 F 91 18 101/58 93 L 09/14/24 01:31 85 18 09/13/24 22:40 85 18 09/13/24 22:34 98.1 F 85 18 95/61 97 09/13/24 21:41 87 18 98/60 97 09/13/24 21:21 90 18 103/56 97 09/13/24 20:10 87 16 95/67 96 09/13/24 17:20 16 98/58 100 09/13/24 16:25 97.7 F 94 18 100/70 100 Intake and Output 09/13/24 09/14/24 09/14/24 22:59 06:59 14:59 Intake Total 0 240 Balance 0 240 Intake: Oral 0 240 Other: Voiding Method Toilet Toilet Toilet Bedside Commode Bedside Commode Bedside Commode External Catheter External Catheter External Catheter # Voids 1 # Bowel Movements 1 Weight 88.451 kg 97.2 kg Results CBC & Chem 7: 09/13/24 16:58 09/14/24 06:44 Labs: Abnormal Lab Results - Last 24 Hours (Table) 09/13/24 09/13/24 09/13/24 Range/Units 16:58 16:58 16:58 WBC 11.1 H (3.8-10.6) k/uL RBC 2.76 L (3.80-5.40) m/uL Hgb 9.8 L (11.4-16.0) gm/dL Hct 28.6 L (34.0-46.0) % MCV 103.7 H (80.0-100.0) fL MCH 35.6 H (25.0-35.0) pg Neutrophils # 9.3 H (1.3-7.7) k/uL Sodium 131 L (137-145) mmol/L Potassium 2.3 L* (3.5-5.1) mmol/L Chloride 87 L (98-107) mmol/L BUN 22 H (7-17) mg/dL Creatinine 1.46 H (0.52-1.04) mg/dL Glucose (74-99) mg/dL Plasma Lactic Acid Julien 2.9 H* (0.7-2.0) mmol/L Calcium 6.6 L (8.4-10.2) mg/dL Ionized Calcium Nate (4.5-5.3) mg/dL Magnesium (1.6-2.3) mg/dL Total Bilirubin 11.5 H (0.2-1.3) mg/dL AST 114 H (14-36) U/L Alkaline Phosphatase 272 H (38-126) U/L Ammonia (<30) umol/L Total Protein (6.3-8.2) g/dL Albumin (3.5-5.0) g/dL 09/13/24 09/13/24 09/13/24 Range/Units 16:58 19:35 19:51 WBC (3.8-10.6) k/uL RBC (3.80-5.40) m/uL Hgb (11.4-16.0) gm/dL Hct (34.0-46.0) % MCV (80.0-100.0) fL MCH (25.0-35.0) pg Neutrophils # (1.3-7.7) k/uL Sodium (137-145) mmol/L Potassium (3.5-5.1) mmol/L Chloride (98-107) mmol/L BUN (7-17) mg/dL Creatinine (0.52-1.04) mg/dL Glucose (74-99) mg/dL Plasma Lactic Acid Julien (0.7-2.0) mmol/L Calcium (8.4-10.2) mg/dL Ionized Calcium Nate 3.1 L* (4.5-5.3) mg/dL Magnesium 0.8 L* (1.6-2.3) mg/dL Total Bilirubin (0.2-1.3) mg/dL AST (14-36) U/L Alkaline Phosphatase (38-126) U/L Ammonia 44 H (<30) umol/L Total Protein (6.3-8.2) g/dL Albumin (3.5-5.0) g/dL 09/14/24 Range/Units 06:44 WBC (3.8-10.6) k/uL RBC (3.80-5.40) m/uL Hgb (11.4-16.0) gm/dL Hct (34.0-46.0) % MCV (80.0-100.0) fL MCH (25.0-35.0) pg Neutrophils # (1.3-7.7) k/uL Sodium 130 L (137-145) mmol/L Potassium 2.4 L* (3.5-5.1) mmol/L Chloride 93 L (98-107) mmol/L BUN (7-17) mg/dL Creatinine (0.52-1.04) mg/dL Glucose 101 H (74-99) mg/dL Plasma Lactic Acid Julien (0.7-2.0) mmol/L Calcium 6.0 L* (8.4-10.2) mg/dL Ionized Calcium Nate (4.5-5.3) mg/dL Magnesium (1.6-2.3) mg/dL Total Bilirubin 8.4 H (0.2-1.3) mg/dL AST 82 H (14-36) U/L Alkaline Phosphatase 204 H (38-126) U/L Ammonia (<30) umol/L Total Protein 5.9 L (6.3-8.2) g/dL Albumin 2.5 L (3.5-5.0) g/dL Thrombosis Risk Factor Assmnt - Choose All That Apply Any of the Below Risk Factors Present?: Yes Each Factor Represents 1 point: Age 41-60 years, Obesity (BMI >25) Other Risk Factors: No Other congenital or acquired thrombophilia - If yes, enter type in comment: No Thrombosis Risk Factor Assessment Total Risk Factor Score: 2 Thrombosis Risk Factor Assessment Level: Low Risk
[2024-09-14] MEDS: MULTIVITAMINS, THERA 1 EACH TAB PO SCH (17:30)
[2024-09-14] MEDS: THIAMINE 100 MG TAB PO SCH (17:30)
[2024-09-14] MEDS: PANTOPRAZOLE 40 MG TABLET PO SCH (17:31)
[2024-09-14] MEDS: diazePAM 2 MG TAB PO SCH (17:34)
[2024-09-14 18:40] LABS: ALT 15 U/L (4-34); AST 87 U/L (14-36); African American GFR (CKD) >90 (>60 ml/min/1.73 sqM); Albumin 2.9 g/dL (3.5-5.0); Alkaline Phosphatase 225 U/L (38-126); Anion Gap 9 mmol/L; Blood Urea Nitrogen 13 mg/dL (7-17); Carbon Dioxide 27 mmol/L (22-30); Chloride 96 mmol/L (98-107); Glucose 132 mg/dL (74-99); Non-African American GFR(CKD) 87 (>60 ml/min/1.73 sqM); Potassium 3.1 mmol/L (3.5-5.1); Sodium 132 mmol/L (137-145); Total Bilirubin 8.7 mg/dL (0.2-1.3); Total Protein 6.7 g/dL (6.3-8.2)
[2024-09-14 18:49] LABS: Calcium 6.4 mg/dL (8.4-10.2)
[2024-09-15] MEDS: LORazepam 0.5 MG TAB PO PRN (03:55)
[2024-09-15 07:27] LABS: ALT 15 U/L (4-34); AST 84 U/L (14-36); African American GFR (CKD) >90 (>60 ml/min/1.73 sqM); Albumin 2.8 g/dL (3.5-5.0); Alkaline Phosphatase 219 U/L (38-126); Anion Gap 12 mmol/L; Blood Urea Nitrogen 10 mg/dL (7-17); Calcium 6.5 mg/dL (8.4-10.2); Carbon Dioxide 24 mmol/L (22-30); Chloride 98 mmol/L (98-107); Glucose 102 mg/dL (74-99); Non-African American GFR(CKD) >90 (>60 ml/min/1.73 sqM); Potassium 3.7 mmol/L (3.5-5.1); Sodium 134 mmol/L (137-145); Total Bilirubin 8.5 mg/dL (0.2-1.3); Total Protein 6.5 g/dL (6.3-8.2)
[2024-09-15 11:57] VITALS: BP 98/59; PULSE 88; RESP 16; TEMP 98.8
--- NOTE | 2024-09-15 16:36 | P.DS ---
Providers Date of admission: 09/13/24 21:27 Expected date of discharge: 09/15/24 Attending physician: Jayy Holguin Primary care physician: Henna Doe MD Hospital Course: Chief Complaint: Loose stool Pleasant 59-year-old patient follows with Dr. Henna Doe. Chronic medical condition include GERD, hyperlipidemia, essential hypertension, alcoholic liver disease follows at the office of Dr. Jeremy Arevalo. Patient reported she was walking in her room last night and stumbled over her feet and fell striking her head on the linoleum floor. Did not lose consciousness. No other injuries. For last couple of days patient's had about 2 bowel movements a day. Still somewhat soft. Has been running very weak and tired. Patient lost her a day before. Patient does drink at least 4 glasses of 5 ounce of wine a day including a mixed drink. Drinking for quite to 20 years. Also found to be icteric. September 15: Patient doing well. Potassium scalp nicely. Talk to patient at [facility] about alcohol. Patient to follow-up with Dr. Jeremy Arevalo's office for her liver. Diet discussed. Spoke to the nurse. Patient ambulating. Patient's blood pressure medication includes Zestril amlodipine discontinued so was hydrochlorothiazide because blood pressure running the lower side. Discussion and discharge planning more than 35 minutes Social history: Patient a day ago. There is a small amount of marijuana daily. Drinks about 4 glasses of 5 ounce wine daily and a mixed drink. For 20 years. Physical examination: VITAL SIGNS: 98.8, 88, 16, 98 x 59, 97% room air GENERAL: BMI 31.6, comfortable EYES: Pupils equal. Conjunctiva yellow l. HEENT: External appearance of nose and ears normal, oral cavity grossly normal. NECK: JVD not raised; masses not palpable. HEART: First and second heart sounds are normal; no edema. LUNGS: Respiratory rate normal; clear to auscultation. ABDOMEN: Soft, nontender, liver spleen not palpable, no masses palpable. PSYCH: Alert and oriented x3; mood and affect jeff l. MUSCULOSKELETAL:No Clubbing/cyanosis;muscles-grossly intact. OA NEUROLOGICAL: Cranial nerves grossly intact; no facial asymmetry, power and sensation grossly intact. Did ambulate per nurse. INVESTIGATIONS, reviewed in the clinical context: September 15: Potassium 3.7 magnesium 1.4 total bilirubin 8.5 AST 84 ALT 15 September 14: Sodium 130 potassium 2.4 BUN 17 creatinine 0.92 calcium 6 total bilirubin 8.4 alkaline phosphatase 204 ammonia 44 albumin 2.5 September 13: White count 9.1 hemoglobin 9.8 platelets 173 sodium 131 potassium 2.3 BUN 22 creatinine 1.46 magnesium 0.8 total bilirubin 11.5 AST 114 ALT 18 alkaline phosphatase 272 Hepatitis A IgM, hepatitis B surface antigen, hepatitis B core IgM, hepatitis C IgG, influenza type A, type B, RSV, COVID-19: All negative Head cervical spine CT: Mild DJD Ultrasound gallbladder: Liver increased attenuation hepatomegaly. CT abdomen pelvis: Hepatic steatosis with nodular contour with evidence of por arnold hypertension. Colonic diverticulosis. Ventral wall fat-containing hernia. Assessment plan: -Acute myopathy from severe hypokalemia hypomagnesemia, resulting in falls, also hypotension from antihypertensives.: Much improved Mg [place] and potassium was replaced -Severe hypokalemia: Corrected Telemetry. Replace -Hypotension from antihypertensives Lisinopril, amlodipine, hydrochlorothiazide all discontinued -Severe hypomagnesemia: Much improved Replace magnesium -Alcohol use disorder CIWA scale. Thiamine. Multivitamin. Received Valium for DVT prophylaxis -Probable early stages of cirrhosis from alcoholism Patient does follow with Dr. Jeremy Arevalo outpatient. Follow-up -Acute alcoholic hepatitis Follow LFTs -Hyperbilirubinemia from alcohol liver disease Follow-up with Dr. Jeremy Arevalo -Full code Disposition: Home Past Medical History Past Medical History: GERD/Reflux, Hyperlipidemia, Hypertension, Liver Disease Additional Past Medical History / Comment(s): fatty liver, History of Any Multi-Drug Resistant Organisms: None Reported Past Surgical History: Section, Cholecystectomy, Orthopedic Surgery Additional Past Surgical History / Comment(s): rt foot surgery. colonosopy Past Anesthesia/Blood Transfusion Reactions: No Reported Reaction Past Psychological History: Anxiety Smoking Status: Former smoker, Light tobacco smoker Past Alcohol Use History: Daily Additional Past Alcohol Use History / Comment(s): quit 28yrs ago Past Drug Use History: Marijuana Additional Drug Use History / Comment(s): thc edibles and occasional smoking. pt aware not to use 24 hrs before procedure. Plan - Discharge Summary Discharge Rx Participant: No New Discharge Prescriptions: New Multivitamins, Thera [Multivitamin (formulary)] 1 each PO DAILY #30 tab Magnesium Oxide [Mag-Ox] 200 mg PO BID #60 tab Calcium Carb-Vit D 500Mg-5Mcg [Oscal 500+D 5 Mcg (200 Iu)] 1 each PO BID- W/MEALS #60 tab Thiamine [Vitamin B-1] 100 mg PO DAILY #30 tab Continue Zolpidem Tartrate [Ambien] 10 mg PO HS PRN PRN Reason: Insomnia ALPRAZolam [Xanax] 0.25 mg PO DAILY PRN PRN Reason: Anxiety Omeprazole 20 mg PO DAILY Discontinued Ezetimibe [Zetia] 10 mg PO DAILY lisinopriL [Zestril] 20 mg PO BID #30 tab amLODIPine [Norvasc] 2.5 mg PO DAILY hydroCHLOROthiazide 12.5 mg PO DAILY Discharge Medication List ALPRAZolam [Xanax] 0.25 mg PO DAILY PRN 01/01/23 [History] Omeprazole 20 mg PO DAILY 01/01/23 [History] Zolpidem Tartrate [Ambien] 10 mg PO HS PRN 01/01/23 [History] Calcium Carb-Vit D 500Mg-5Mcg [Oscal 500+D 5 Mcg (200 Iu)] 1 each PO BID-W/MEALS #60 tab 09/15/24 [Rx] Magnesium Oxide [Mag-Ox] 200 mg PO BID #60 tab 09/15/24 [Rx] Multivitamins, Thera [Multivitamin (formulary)] 1 each PO DAILY #30 tab 09/15/24 [Rx] Thiamine [Vitamin B-1] 100 mg PO DAILY #30 tab 09/15/24 [Rx] Follow up Appointment(s)/Referral(s): Michelle Arevalo MD [STAFF PHYSICIAN] - 1 Week Henna Doe MD [Primary Care Provider] - 1-2 days Patient Instructions/Handouts: Hyponatremia (DC), Hypokalemia (DC) Activity/Diet/Wound Care/Special Instructions: heart healthy diet activity as tolerated Discharge/Stand Alone Forms: AA Meetings [facility] [facility], Outpatient Counseling, In Substance Abuse Facilities Discharge Disposition: HOME SELF-CARE
== END 2024-09-15 14:11 | disposition home or self-care (01) | DRG 641 ==
LOC: EC 16:24 → 3SCARD 21:27
PROVIDERS: ADMIT Hospitalist; ATTEND Hospitalist
PROC: HZ2ZZZZ Detoxification Services for Substance Abuse Treatment (ICD-10-PCS; principal; 2024-09-13)
DX: E87.6 Hypokalemia (principal); G72.9 Myopathy, unspecified; I10 Essential (primary) hypertension; K70.9 Alcoholic liver disease, unspecified; K70.10 Alcoholic hepatitis without ascites; E78.5 Hyperlipidemia, unspecified; E83.42 Hypomagnesemia; F12.90 Cannabis use, unspecified, uncomplicated; F41.9 Anxiety disorder, unspecified; K21.9 Gastro-esophageal reflux disease without esophagitis; K76.0 Fatty (change of) liver, not elsewhere classified; W19.XXXA Unspecified fall, initial encounter; Z11.52 Encounter for screening for COVID-19; Z79.899 Other long term (current) drug therapy; Z87.891 Personal history of nicotine dependence; Z88.5 Allergy status to narcotic agent; Z90.49 Acquired absence of other specified parts of digestive tract; Y92.099 Unspecified place in other non-institutional residence as the place of occurrence of the external cause
CPT/HCPCS: 36415; 70450; 72125; 74177; 76705; 80053; 80074; 80143; 80179; 82140; 82330; 83605; 83690; 83735; 84100; 84132; 85025; 87636; 96361; 96365; 96366; 96367; 99284

== ENCOUNTER 2024-12-02 21:52 | Inpatient (IN) | payer OTHER ==
[2024-12-02] MEDS: SODIUM CHLORIDE 0.9% 1,000 ML IV ONE ×2 (22:18→23:36)
[2024-12-02 22:22] LABS: Basophils # (A) 0.09 10*3/uL (0.00-0.10); Basophils % (A) 1.1 %; Eosinophils # (A) 0.05 10*3/uL (0.04-0.35); Eosinophils % (A) 0.6 %; HCT 27.3 % (37.2-46.3); HGB 9.3 g/dL (12.0-15.0); Lymphocytes # (A) 1.34 10*3/uL (0.90-5.00); Lymphocytes % (A) 16.3 %; MCH 31.6 pg (27.0-32.0); MCHC 34.1 g/dL (32.0-37.0); MCV 92.9 fL (80.0-97.0); Mean Platelet Volume 10.2 fL (9.5-12.2); Monocytes # (A) 1.21 10*3/uL (0.20-1.00); Monocytes % (A) 14.8 %; Neutrophils # (A) 5.44 10*3/uL (1.80-7.70); Neutrophils % (A) 66.3 %; Platelet Count 171 10*3/uL (140-440); RBC 2.94 10*6/uL (4.10-5.20); RDW 15.2 % (11.5-14.5)
[2024-12-02] MEDS: IPRATROPIUM-ALBUTEROL 3 ML NEB INHALATION STA (22:25)
--- NOTE | 2024-12-02 22:34 | XR ---
EXAMINATION TYPE: XR chest 1V DATE OF EXAM: 12/02/2024 10:28 PM COMPARISON: Chest radiographs from 02/15/2023 TECHNIQUE: XR chest 1V Frontal view of the chest. CLINICAL INDICATION:Female, 59 years old with history of cp; FINDINGS: Lungs/Pleura: There is no evidence of pleural effusion, focal consolidation, or pneumothorax. Chroni c elevation the right hemidiaphragm. Pulmonary vascularity: Unremarkable. Heart/mediastinum: Cardiomediastinal silhouette is enlarged and stable. Musculoskeletal: No acute osseous pathology. IMPRESSION: Chronic changes without acute pulmonary process. [facility], , 12/02/2024 10:32 PM
--- NOTE | 2024-12-02 22:34 | ED ---
Altered Mental Status HPI - General Chief Complaint: Altered Mental Status Stated Complaint: AMS Time Seen by Provider: 12/02/24 21:55 Source: patient, RN notes reviewed, old records reviewed Mode of arrival: EMS Limitations: no limitations - History of Present Illness Initial Comments: This is a 59 female for severely altered mental status may be fall found down. Patient is unable to give really accurate history but does appear to be short of breath MD Complaint: altered mental status, confusion, decreased responsiveness, intoxication -: unknown Severity: severe Consistency of Symptoms: waxing and waning, getting worse Context: history of similar presentation Treatments Prior to Arrival: IV fluid - Related Data Home Medications Medication Instructions Recorded Confirmed ALPRAZolam [Xanax] 0.25 mg PO DAILY PRN 01/01/23 12/03/24 Omeprazole 20 mg PO DAILY 01/01/23 12/03/24 Zolpidem Tartrate [Ambien] 10 mg PO HS PRN 01/01/23 12/03/24 Calcium Carb-Vit D 500Mg-5Mcg 1 tab PO BID-W/MEALS 12/03/24 12/03/24 [Oscal 500+D 5 Mcg (200 Iu)] Ezetimibe [Zetia] 10 mg PO DAILY 12/03/24 12/03/24 Multivitamins, Thera [Multivitamin 1 tab PO DAILY 12/03/24 12/03/24 (formulary)] amLODIPine [Norvasc] 2.5 mg PO DAILY 12/03/24 12/03/24 hydroCHLOROthiazide [Hydrodiuril] 12.5 mg PO DAILY PRN 12/03/24 12/03/24 Previous Rx's Medication Instructions Recorded Magnesium Oxide [Mag-Ox] 200 mg PO BID #60 tab 09/15/24 Thiamine [Vitamin B-1] 100 mg PO DAILY #30 tab 09/15/24 Allergies Allergy/AdvReac Type Severity Reaction Status Date / Time codeine Allergy Itching & Verified 12/03/24 10:50 ears ringing Review of Systems ROS Statement: Those systems with pertinent positive or pertinent negative responses have been documented in the HPI. ROS Other: All systems not noted in ROS Statement are negative. Past Medical History Past Medical History: GERD/Reflux, Hyperlipidemia, Hypertension, Liver Disease Additional Past Medical History / Comment(s): fatty liver, History of Any Multi-Drug Resistant Organisms: None Reported Past Surgical History: Section, Cholecystectomy, Orthopedic Surgery Additional Past Surgical History / Comment(s): rt foot surgery. colonosopy Past Anesthesia/Blood Transfusion Reactions: No Reported Reaction Past Psychological History: Anxiety Smoking Status: Former smoker, Light tobacco smoker Past Alcohol Use History: Daily Past Drug Use History: Marijuana - Past Family History Mother Family Medical History: CVA/TIA Father Family Medical History: Cancer Additional Family Medical History / Comment(s): lung cancer General Exam Limitations: altered mental status, physical limitation General appearance: alert, lethargic, obtunded Head exam: Present: atraumatic, normocephalic, normal inspection Eye exam: Present: normal appearance, PERRL, EOMI. Absent: scleral icterus, conjunctival injection, periorbital swelling ENT exam: Present: normal exam, mucous membranes moist Neck exam: Present: normal inspection. Absent: tenderness, meningismus, lymphadenopathy Respiratory exam: Present: normal lung sounds bilaterally. Absent: respiratory distress, wheezes, rales, rhonchi, stridor Cardiovascular Exam: Present: regular rate, normal rhythm, normal heart sounds. Absent: systolic murmur, diastolic murmur, rubs, gallop, clicks GI/Abdominal exam: Present: soft, normal bowel sounds. Absent: distended, tenderness, guarding, rebound, rigid Extremities exam: Present: normal inspection, full ROM, normal capillary refill. Absent: tenderness, pedal edema, joint swelling, calf tenderness Back exam: Present: normal inspection Neurological exam: Present: alert, oriented X3, CN II-XII intact Psychiatric exam: Present: normal affect, normal mood Skin exam: Present: warm, dry, intact, normal color. Absent: rash Course Vital Signs 12/02/24 12/02/24 12/02/24 21:54 22:16 22:25 Temperature 97.2 F L Pulse Rate 95 92 Respiratory 18 Rate Blood Pressure 99/43 O2 Sat by Pulse 96 Oximetry 12/02/24 12/03/24 12/03/24 22:33 00:11 00:17 Temperature Pulse Rate 89 91 96 Respiratory Rate Blood Pressure O2 Sat by Pulse Oximetry 12/03/24 12/03/24 12/03/24 02:06 06:30 07:40 Temperature Pulse Rate 93 89 88 Respiratory 17 14 Rate Blood Pressure 96/55 110/78 O2 Sat by Pulse 96 94 L Oximetry 12/03/24 12/03/24 12/03/24 07:48 08:52 10:33 Temperature Pulse Rate 92 90 88 Respiratory 20 20 Rate Blood Pressure 112/59 95/57 O2 Sat by Pulse 93 L 96 Oximetry 12/03/24 12/03/24 12/03/24 12:50 14:00 15:17 Temperature Pulse Rate 90 84 84 Respiratory 26 H 30 H 20 Rate Blood Pressure 104/60 90/64 94/52 O2 Sat by Pulse 96 94 L 96 Oximetry 12/03/24 12/03/24 17:17 18:24 Temperature Pulse Rate 87 84 Respiratory 20 20 Rate Blood Pressure 88/67 104/70 O2 Sat by Pulse 96 96 Oximetry - Reevaluation(s) Reevaluation #1: 12/02/24 22:42 Medical records reviewed History of alcoholism and cirrhosis Reevaluation #2: 12/02/24 22:42 Symptoms unchanged Reevaluation #3: 12/02/24 23:20 Spoke with family who understands patient's condition Reevaluation #4: Was pt. sent in by a medical professional or institution (, PA, ENGRAVER, urgent care, hospital, or long-term...) When possible be specific @ -no Did you speak to anyone other than the patient for history (EMS, parent, family, police, friend...)? What history was obtained from this source @ -no Did you review nursing and triage notes (agree or disagree)? Why? @ -agree Are old charts reviewed (outside hosp., previous admission, EMS record, old EKG, old radiological studies, urgent care reports/EKG's, long-term records)? Report findings @ -yes Differential Diagnosis (chest pain, altered mental status, abdominal pain women, abdominal pain men, vaginal bleeding, weakness, fever, dyspnea, syncope, headache, dizziness, GI bleed, back pain, seizure, CVA, palpatations, mental health, musculoskeletal)? @ -prior EKG interpreted by me (3pts min.). @ -yes X-rays interpreted by me (1pt min.). @ -no CT interpreted by me (1pt min.). @ -Yes positive ascites, abnormal US brain negative for acute disease U/S interpreted by me (1pt. min.). @ -no What testing was considered but not performed or refused? (CT, X-rays, U/S, labs)? Why? @ -none What meds were considered but not given or refused? Why? @ -none Did you discuss the management of the patient with other professionals (professionals i.e. , PA, ENGRAVER, lab, RT, psych nurse, child protective services social worker, order schedule clerk, teacher, executive vice president and chief financial officer, block and case maker)? Give summary @ -no Was smoking cessation discussed for >3mins.? @ -no Was critical care preformed (if so, how long)? @ -no Were there social determinants of health that impacted care today? How? (Homelessness, low income, unemployed, alcoholism, drug addiction, transportation, low edu. Level, literacy, decrease access to med. care, fci, rehab)? @ -none Was there de-escalation of care discussed even if they declined (Discuss DNR or withdrawal of care, Hospice)? DNR status @ -no What co-morbidities impacted this encounter? (DM, HTN, Smoking, COPD, CAD, Cancer, CVA, ARF, Chemo, Hep., AIDS, mental health diagnosis, sleep apnea, morbid obesity)? @ -none Was patient admitted / discharged? Hospital course, mention meds given and route, prescriptions, significant lab abnormalities, going to OR and other pertinent info. @ - 59 female with multiple electrolyte abnormalities likely alcoholic ketoacidosis elevated lactic acid dyspnea. Patient will admit for hydration electrolyte replacement and monitoring of altered mental status Admitted Undiagnosed new problem with uncertain prognosis? @ -no Drug Therapy requiring intensive monitoring for toxicity (Heparin, Nitro, Insulin, Cardizem)? @ -no Were any procedures done? @ -no Diagnosis/symptom? @ -Altered mental status cirrhosis alcoholic ketoacidosis Acute, or Chronic, or Acute on Chronic? @ -Acute Uncomplicated (without systemic symptoms) or Complicated (systemic symptoms)? @ -Complicated Side effects of treatment? @ -no Exacerbation, Progression, or Severe Exacerbation? @ -exacerbation Poses a threat to life or bodily function? How? (Chest pain, [place], [place], pneumonia, PE, COPD, DKA, ARF, appy, cholecystitis, CVA, Diverticulitis, Homicidal, S uicidal, threat to staff... and all critical care pts) @ -yes severe end-stage organ disorder Reevaluation #5: Differential Altered Mental Status: Hypoglycemia, DKA, hypercapnia, ETOH, overdose, CO poisoning, trauma, myxedema coma, HTN encephalopathy, infection, encephalitis, psychosis, intercranial hemorrhage, hepatic encephalopathy, meningitis, CVA, this is not meant to be an all-inclusive list - Consultations Consultation #1: Spoke with Dr. Holguin agrees to admit this Medical Decision Making - Medical Decision Making 59 female with multiple electrolyte abnormalities likely alcoholic ketoacidosis elevated lactic acid dyspnea. Patient will admit for hydration electrolyte replacement and monitoring of altered mental status - Lab Data Result diagrams: 12/05/24 05:24 12/07/24 06:02 Lab Results 12/02/24 12/02/24 12/02/24 Range/Units 22:15 22:15 22:15 WBC 8.20 (4.50-10.00) 10*3/uL RBC 2.94 L (4.10-5.20) 10*6/uL Hgb 9.3 L (12.0-15.0) g/dL Hct 27.3 L (37.2-46.3) % MCV 92.9 (80.0-97.0) fL MCH 31.6 (27.0-32.0) pg MCHC 34.1 (32.0-37.0) g/dL Plt Count 171 (140-440) 10*3/uL MPV 10.2 (9.5-12.2) fL Immature Gran % (Auto) 0.9 % Neutrophils % 66.3 % Lymphocytes % 16.3 % Monocytes % 14.8 % Eosinophils % 0.6 % Basophils % 1.1 % Immature Gran # 0.07 H (0.00-0.04) 10*3/uL Neutrophils # 5.44 (1.80-7.70) 10*3/uL Lymphocytes # 1.34 (0.90-5.00) 10*3/uL Monocytes # 1.21 H (0.20-1.00) 10*3/uL Eosinophils # 0.05 (0.04-0.35) 10*3/uL Basophils # 0.09 (0.00-0.10) 10*3/uL Sodium 132 L (137-145) mmol/L Potassium 3.6 (3.5-5.1) mmol/L Chloride 100 (98-107) mmol/L Carbon Dioxide 19 L (22-30) mmol/L Anion Gap 13 mmol/L BUN 13 (7-17) mg/dL Creatinine 1.14 H (0.52-1.04) mg/dL Est GFR (CKD-EPI)AfAm 61 (>60 ml/min/1.73 sqM) Est GFR (CKD-EPI)NonAf 53 (>60 ml/min/1.73 sqM) Glucose 108 H (74-99) mg/dL Lactic Ac Sepsis Rflx Plasma Lactic Acid Julien 5.3 H* (0.7-2.0) mmol/L Calcium 8.6 (8.4-10.2) mg/dL Phosphorus 3.7 (2.5-4.5) mg/dL Magnesium 1.5 L (1.6-2.3) mg/dL Total Bilirubin 3.5 H (0.2-1.3) mg/dL AST 70 H (14-36) U/L ALT 22 (4-34) U/L Alkaline Phosphatase 262 H (38-126) U/L Ammonia 61 H (<30) umol/L Creatine Kinase (30-135) U/L Total Protein 7.7 (6.3-8.2) g/dL Albumin 2.9 L (3.5-5.0) g/dL Lipase 185 (23-300) U/L Serum Alcohol 24 mg/dL 12/02/24 12/02/24 Range/Units 22:15 22:45 WBC (4.50-10.00) 10*3/uL RBC (4.10-5.20) 10*6/uL Hgb (12.0-15.0) g/dL Hct (37.2-46.3) % MCV (80.0-97.0) fL MCH (27.0-32.0) pg MCHC (32.0-37.0) g/dL Plt Count (140-440) 10*3/uL MPV (9.5-12.2) fL Immature Gran % (Auto) % Neutrophils % % Lymphocytes % % Monocytes % % Eosinophils % % Basophils % % Immature Gran # (0.00-0.04) 10*3/uL Neutrophils # (1.80-7.70) 10*3/uL Lymphocytes # (0.90-5.00) 10*3/uL Monocytes # (0.20-1.00) 10*3/uL Eosinophils # (0.04-0.35) 10*3/uL Basophils # (0.00-0.10) 10*3/uL Sodium (137-145) mmol/L Potassium (3.5-5.1) mmol/L Chloride (98-107) mmol/L Carbon Dioxide (22-30) mmol/L Anion Gap mmol/L BUN (7-17) mg/dL Creatinine (0.52-1.04) mg/dL Est GFR (CKD-EPI)AfAm (>60 ml/min/1.73 sqM) Est GFR (CKD-EPI)NonAf (>60 ml/min/1.73 sqM) Glucose (74-99) mg/dL Lactic Ac Sepsis Rflx Y Plasma Lactic Acid Julien (0.7-2.0) mmol/L Calcium (8.4-10.2) mg/dL Phosphorus (2.5-4.5) mg/dL Magnesium (1.6-2.3) mg/dL Total Bilirubin (0.2-1.3) mg/dL AST (14-36) U/L ALT (4-34) U/L Alkaline Phosphatase (38-126) U/L Ammonia (<30) umol/L Creatine Kinase 130 (30-135) U/L Total Protein (6.3-8.2) g/dL Albumin (3.5-5.0) g/dL Lipase (23-300) U/L Serum Alcohol mg/dL - EKG Data -: EKG Interpreted by Me - Radiology Data Radiology results: report reviewed (Chest x-ray is negative for acute disease), image reviewed Critical Care Time Critical Care Time: Yes Total Critical Care Time: 31 Disposition Clinical Impression: Hypokalemia, Hypomagnesemia, Delirium due to general medical condition, Altered mental status, Alcoholic ketoacidosis, Hyperammonemic encephalopathy, Ascites, Hyponatremia Disposition: ADMITTED IP TO THIS [facility] Condition: Serious Is patient prescribed a controlled substance at d/c from ED?: No Time of Disposition: 23:00
[2024-12-02 22:35] LABS: ALT 22 U/L (4-34); AST 70 U/L (14-36); African American GFR (CKD) 61 (>60 ml/min/1.73 sqM); Albumin 2.9 g/dL (3.5-5.0); Alcohol 24 mg/dL; Alkaline Phosphatase 262 U/L (38-126); Anion Gap 13 mmol/L; Blood Urea Nitrogen 13 mg/dL (7-17); Calcium 8.6 mg/dL (8.4-10.2); Carbon Dioxide 19 mmol/L (22-30); Chloride 100 mmol/L (98-107); Glucose 108 mg/dL (74-99); Lipase 185 U/L (23-300); Magnesium 1.5 mg/dL (1.6-2.3); Non-African American GFR(CKD) 53 (>60 ml/min/1.73 sqM); Phosphorus 3.7 mg/dL (2.5-4.5); Potassium 3.6 mmol/L (3.5-5.1); Sodium 132 mmol/L (137-145); Total Bilirubin 3.5 mg/dL (0.2-1.3); Total Protein 7.7 g/dL (6.3-8.2)
[2024-12-02 22:45] LABS: Lactic Acid, Venous 5.3 mmol/L (0.7-2.0)
[2024-12-02] MEDS ORDERED: NALOXONE 0.4 MG/ML 1 ML VIAL IV PRN (23:16)
[2024-12-02] MEDS ORDERED: MORPHINE SULFATE 4 MG/ML SYRINGE IV PRN (23:16)
--- NOTE | 2024-12-02 23:30 | CT ---
EXAMINATION TYPE: CT brain wo con CT DLP: 1258.8 mGycm, Automated exposure control for dose reduction was used. DATE OF EXAM: 12/02/2024 11:12 PM COMPARISON: CT brain C-spine 09/13/2024 CLINICAL INDICATION:Female, 59 years old with history of ams, AMS fall no thinners no head injury TECHNIQUE: Brain: Multiple axial CT images of the brain were obtained without IV contrast. . Coronal and sagitta l reformats reviewed. FINDINGS: Brain: Extra-axial spaces: No abnormal extra-axial fluid collections. Ventricular system: Within normal limits Cerebral parenchyma: No acute intraparenchymal hemorrhage or mass effect. The wright-white junction is well differentiated. Scattered hypoattenuating areas are seen within the periventricular white matte r. Cerebellum: Unremarkable. Mass effect: No evidence of midline shift. Intracranial vasculature: Atherosclerotic calcifications of the intracranial vessels. Soft tissues: Mild acute left posterior parietal scalp hematoma measuring up to 7 mm in thickness. Calvarium/osseous structures: No depressed skull fracture. Paranasal sinuses and mastoid air cells: Clear Visualized orbits: Orbital contents are intact. IMPRESSION: 1. No acute intracranial process. 2. Acute left posterior parietal scalp hematoma. 3. Nonspecific white matter changes, likely secondary to chronic small vessel ischemic disease. [facility], , 12/02/2024 11:28 PM
[2024-12-02] MEDS: MAGNESIUM SULFATE-D5W PMX 1 GM in DEXTROSE/WATER 1 100ML.BAG IVPB ONE (23:36)
[2024-12-02] MEDS: MAGNESIUM OXIDE 400 MG TAB PO STA ×2 (23:38→23:54)
[2024-12-02] MEDS: LACTULOSE 20 GM/30 ML CUP PO ONE (23:39)
[2024-12-02] MEDS: methylPREDNISolone SOD SUCCI 125 MG/2 ML VIAL IV STA (23:43)
--- NOTE | 2024-12-02 23:44 | CT ---
EXAMINATION TYPE: CT abdomen pelvis wo con CT DLP: 3026.2 mGycm, Automated exposure control for dose reduction was used. DATE OF EXAM: 12/02/2024 11:08 PM COMPARISON: CT abdomen pelvis 09/13/2024 CLINICAL INDICATION:Female, 59 years old with history of ams; AMS fall no thinners no head injury TECHNIQUE: Standard CT of the abdomen and pelvis without IV or oral contrast. Lack of IV or oral co ntrast limits evaluation of solid and hollow organ viscera. Coronal and sagittal reformats were perfo rmed. FINDINGS: LOWER CHEST: Small left pleural effusion with bibasilar subsegmental atelectasis. Cardiomegaly. No pe ricardial effusion. ABDOMEN LIVER: Diffusely hypoattenuating parenchyma. Subtle surface nodularity liver redemonstrated. GALLBLADDER AND BILE DUCTS: The gallbladder is surgically absent. No biliary ductal dilatation. PANCREAS: Unremarkable. SPLEEN: Top normal for size measuring 14.0 cm ADRENAL GLANDS: Unremarkable. KIDNEYS AND URETERS: No evidence of hydronephrosis or renal calculus. The ureters are unremarkable. PELVIS BLADDER: Incompletely distended but grossly unremarkable. REPRODUCTIVE: Unremarkable noncontrast appearance. ABDOMEN & PELVIS STOMACH AND BOWEL: The second portion duodenal diverticulum. Distal colon diverticulosis without evid ence for acute diverticulitis. The appendix is within normal limits. No evidence of bowel obstruction . PERITONEUM: No evidence of pneumoperitoneum. Increased moderate volume simple ascites throughout the abdomen and pelvis. VASCULATURE: Mild atherosclerotic calcifications are present throughout the abdominal aorta and its b ranches. No evidence of aortic aneurysm. Pelvic phleboliths. MUSCULOSKELETAL: No acute osseous abnormalities LYMPH NODES: No gross evidence for lymphadenopathy. SOFT TISSUE/ABDOMINAL WALL: Diffuse anasarca. Small umbilical hernia containing fat and ascites. Rede monstration of right of midline epigastric ventral wall hernia containing fat and some stranding. IMPRESSION: 1. Hepatic steatosis with surface nodularity of the liver again demonstrated. Findings are again con cerning for hepatic cirrhosis. Correlate clinically. 2. Increasing moderate volume ascites, diffuse anasarca with small left pleural effusion suggesting v olume overload. 3. Small epigastric ventral wall and umbilical hernias containing fat and ascites with some stranding . Limited evaluation due to surrounding anasarca. 4. Colonic diverticulosis without evidence for acute diverticulitis. [facility], , 12/02/2024 11:42 PM
[2024-12-03] MEDS: IPRATROPIUM-ALBUTEROL 3 ML NEB INHALATION STA (00:08)
[2024-12-03] MEDS: DEXTROSE 5%-0.45% NACL 1,000 ML IV SCH (02:09)
[2024-12-03 03:48] LABS: Appearance,Urine Cloudy (Clear); Bilirubin,Urine 1+ (Negative); Blood,Urine Negative (Negative); Color,Urine Dark Brown; Glucose,Urine (UA) Trace (Negative); Hyaline Casts,Urine 22 /lpf (0-2); Ketones,Urine Trace (Negative); Leukocyte Esterase,Urine Negative (Negative); Mucus,Urine Rare /hpf; Nitrite,Urine Negative (Negative); PH, Urine 5.5 (5.0-8.0); Protein,Urine 1+ (Negative); RBC,Urine 1 /hpf (0-5); Specific Gravity,Urine 1.025 (1.001-1.035); Squamous Epithelial Cell,Urine 3 /hpf (0-4); WBC,Urine 1 /hpf (0-5)
[2024-12-03 04:37] LABS: Basophils # (A) 0.03 10*3/uL (0.00-0.10); Basophils % (A) 0.4 %; Eosinophils # (A) 0.01 10*3/uL (0.04-0.35); Eosinophils % (A) 0.1 %; HCT 25.2 % (37.2-46.3); HGB 8.6 g/dL (12.0-15.0); Lymphocytes # (A) 0.55 10*3/uL (0.90-5.00); Lymphocytes % (A) 7.8 %; MCH 32.1 pg (27.0-32.0); MCHC 34.1 g/dL (32.0-37.0); Mean Platelet Volume 10.2 fL (9.5-12.2); Monocytes # (A) 0.28 10*3/uL (0.20-1.00); Neutrophils # (A) 6.12 10*3/uL (1.80-7.70); Platelet Count 154 10*3/uL (140-440); RBC 2.68 10*6/uL (4.10-5.20); RDW 15.5 % (11.5-14.5); WBC 7.04 10*3/uL (4.50-10.00)
[2024-12-03 04:51] LABS: ALT 23 U/L (4-34); AST 80 U/L (14-36); African American GFR (CKD) 62 (>60 ml/min/1.73 sqM); Albumin 2.8 g/dL (3.5-5.0); Alkaline Phosphatase 254 U/L (38-126); Anion Gap 12 mmol/L; Blood Urea Nitrogen 13 mg/dL (7-17); Calcium 8.3 mg/dL (8.4-10.2); Carbon Dioxide 21 mmol/L (22-30); Chloride 101 mmol/L (98-107); Glucose 121 mg/dL (74-99); Magnesium 1.6 mg/dL (1.6-2.3); Non-African American GFR(CKD) 53 (>60 ml/min/1.73 sqM); Phosphorus 4.3 mg/dL (2.5-4.5); Potassium 3.4 mmol/L (3.5-5.1); Sodium 134 mmol/L (137-145); Total Bilirubin 3.8 mg/dL (0.2-1.3); Total Protein 7.4 g/dL (6.3-8.2)
[2024-12-03] MEDS: methylPREDNISolone SOD SUCCI 125 MG/2 ML VIAL IV SCH (06:58)
[2024-12-03] MEDS: IPRATROPIUM-ALBUTEROL 3 ML NEB INHALATION PRN (07:39)
[2024-12-03] MEDS: MAGNESIUM OXIDE 400 MG TAB PO SCH (08:54)
[2024-12-03] MEDS: PANTOPRAZOLE 40 MG/10 ML VIAL IV SCH (08:54)
[2024-12-03] MEDS ORDERED: LACTULOSE 20 GM/30 ML CUP PO SCH (09:00)
[2024-12-03] MEDS ORDERED: Potassium Replacement Protocol 1 EACH MISC MISCELLANE PRN (09:58)
[2024-12-03] MEDS ORDERED: Magnesium Replacement Protocol 1 EACH MISC MISCELLANE PRN (09:58)
[2024-12-03] MEDS ORDERED: ONDANSETRON 4 MG/2 ML VIAL IVP PRN (09:58)
[2024-12-03] MEDS: MAGNESIUM SULFATE-D5W PMX 1 GM in DEXTROSE/WATER 1 100ML.BAG IVPB SCH (10:31)
[2024-12-03] MEDS: POTASSIUM CHLORIDE ER 20 MEQ TAB.ER PO SCH (10:33)
[2024-12-03] MEDS ORDERED: NON FORMULARY DRUG (Omeprazole [Omeprazole] 20 MG Tablet.Dr) PO SCH (12:15)
[2024-12-03] MEDS: MULTIVITAMINS, THERA 1 EACH TAB PO SCH (12:35)
[2024-12-03] MEDS: ACETAMINOPHEN TAB 325 MG TAB PO PRN (12:35)
[2024-12-03] MEDS: THIAMINE 100 MG TAB PO SCH (12:35)
[2024-12-03] MEDS: SPIRONOLACTONE 25 MG TAB PO SCH (12:35)
--- NOTE | 2024-12-03 14:46 | P.HPIM ---
History of Present Illness H&P Date: 12/03/24 Chief Complaint: Fall 59-year-old, female patient follows with Dr. Henna Doe. Chronic medical condition include GERD, hyperlipidemia, essential hypertension, alcoholic liver disease follows at the office of Dr. Jeremy Arevalo. Patient was seen by me earlier today in the ER. Patient presented with falls. Patient states she fell out of bed. And she is able to get up and walk when she tripped on the rug. Her brother came and he brought her in. Patient drinks anywhere from 4 to 5 glasses of wine a day. Alcohol admission was 24. Patient's liver also questions. She says she has numbness in both of her feet. Abdomen slightly distended. Denies any fever and chills. Review of systems: GEN.: Tired EYES: Yellowness HEENT: None NECK: None RESPIRATORY: None CARDIOVASCULAR: None GASTROINTESTINAL: None GENITOURINARY: None MUSCULOSKELETAL: Some joint pains LYMPHATICS: None HEMATOLOGICAL: None PSYCHIATRY: None NEUROLOGICAL: Numbness in the legs Social history: Patient in August of this year.. Smokes small amount of marijuana daily. Drinks about 4 glasses of 5 ounce wine daily and a mixed drink. For 20 years. Patient smoked for 20 years stopped about 25 years ago. Physical examination: VITAL SIGNS: 97.2, 95, 18, 99 x 43, 96% on 4 L on presentation GENERAL: BMI 32.5, laying in bed tired. Spider nevi. Pseudo cushingoid facies. Flushed cheeks EYES: Pupils equal. Conjunctiva yellow l. HEENT: External appearance of nose and ears normal, oral cavity grossly normal. NECK: JVD not raised; masses not palpable. HEART: First and second heart sounds are normal; edema present. LUNGS: Respiratory rate normal; clear to auscultation. ABDOMEN: Soft, but distended. Nontender, liver spleen not palpable, no masses palpable. PSYCH: Patient is able to answer questions. Slow. Appears a bit distant.. MUSCULOSKELETAL:No Clubbing/cyanosis;muscles-grossly intact. OA NEUROLOGICAL: Cranial nerves grossly intact; no facial asymmetry, power grossly intact. Decreased sensation to fine touch distally in both the legs INVESTIGATIONS, reviewed in the clinical context: December 03: White count 7.0 hemoglobin 8.6 platelets 154 sodium 134 potassium 3.4 creatinine 1.13 lactic acid 3.3 AST 80 ALT 23 alkaline phosphatase 254 albumin 2 .8 December 02: White count 8.2 hemoglobin 9.3 platelets 171 sodium 132 potassium 3.6 creatinine 1.14 Bernie lactic acid 5.3 total bilirubin 3.5 lipase 185[address] Ammonia [address] brain: Acute left posterior parietal scalp hematoma. Nonspecific white matter changes. CT scan abdomen pelvis: Hepatic steatosis with surface nodularity. Concerning for hepatic cirrhosis. Increased moderate volume ascites. Diffuse anasarca. Colonic diverticulosis. August 2024 Hepatitis A IgM, hepatitis B surface antigen, hepatitis B core IgM, hepatitis C IgG, influenza type A, type B, RSV, COVID-19: All negative Ultrasound gallbladder [August 2024]: Liver increased attenuation hepatomegaly. Assessment plan: - Acute hepatic encephalopathy. Patient is underlying cirrhosis. With features of portal hypertension. Elevated ammonia. Lactulose. Titrate to 2-4 bowel movements a day. 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 Resulting in recurrent falls -Severe hypomagnesemia: Replace magnesium -Alcohol use disorder CIWA scale. Thiamine. Multivitamin. Valium 2 mg p.o. 3 times daily for DT prophylaxis. Last drink was last night. -Alcoholic cirrhosis with findings of portal hypertension -Secondary portal hypertension secondary to alcoholic cirrhosis causing ascites Aldactone - Moderate ascites secondary to portal hypertension secondary to cirrhosis Fluid restriction. Aldactone 100 mg a day - Acute obstructive hepatocellular hepatitis from alcoholism Follow LFTs -Hyperbilirubinemia from alcohol liver disease - Essential hypertension, currently blood pressure on his lower side. Stop amlodipine. - GERD with alcoholic gastritis PPI - Peripheral neuropathy secondary to alcoholism contributing to poor balance -Full code Given the complexity and severity of patient's condition expect the patient to be in the hospital at least for 2 overnights. Discussed with patient Past Medical History Past Medical History: GERD/Reflux, Hyperlipidemia, Hypertension, Liver Disease Additional Past Medical History / Comment(s): fatty liver, History of Any Multi-Drug Resistant Organisms: None Reported Past Surgical History: Section, Cholecystectomy, Orthopedic Surgery Additional Past Surgical History / Comment(s): rt foot surgery. colonosopy Past Anesthesia/Blood Transfusion Reactions: No Reported Reaction Past Psychological History: Anxiety Smoking Status: Former smoker, Light tobacco smoker Past Alcohol Use History: Daily Past Drug Use History: Marijuana - Past Family History Mother Family Medical History: CVA/TIA Father Family Medical History: Cancer Additional Family Medical History / Comment(s): lung cancer Medications and Allergies Home Medications Medication Instructions Recorded Confirmed Type ALPRAZolam [Xanax] 0.25 mg PO DAILY PRN 01/01/23 12/03/24 History Omeprazole 20 mg PO DAILY 01/01/23 12/03/24 History Zolpidem Tartrate [Ambien] 10 mg PO HS PRN 01/01/23 12/03/24 History Magnesium Oxide [Mag-Ox] 200 mg PO BID #60 tab 09/15/24 12/03/24 Rx Thiamine [Vitamin B-1] 100 mg PO DAILY #30 tab 09/15/24 12/03/24 Rx Calcium Carb-Vit D 500Mg-5Mcg 1 tab PO BID-W/MEALS 12/03/24 12/03/24 History [Oscal 500+D 5 Mcg (200 Iu)] Ezetimibe [Zetia] 10 mg PO DAILY 12/03/24 12/03/24 History Multivitamins, Thera [Multivitamin 1 tab PO DAILY 12/03/24 12/03/24 History (formulary)] amLODIPine [Norvasc] 2.5 mg PO DAILY 12/03/24 12/03/24 History hydroCHLOROthiazide [Hydrodiuril] 12.5 mg PO DAILY PRN 12/03/24 12/03/24 History Allergies Allergy/AdvReac Type Severity Reaction Status Date / Time codeine Allergy Itching & Verified 12/03/24 10:50 ears ringing Physical Exam Vitals: Vital Signs Temp Pulse Resp BP Pulse Ox 12/03/24 12:50 90 26 H 104/60 96 12/03/24 10:33 88 20 95/57 96 12/03/24 08:52 90 20 112/59 93 L 12/03/24 07:48 92 12/03/24 07:40 88 12/03/24 06:30 89 14 110/78 94 L 12/03/24 02:06 93 17 96/55 96 12/03/24 00:17 96 12/03/24 00:11 91 12/02/24 22:33 89 12/02/24 22:25 92 12/02/24 22:16 97.2 F L 12/02/24 21:54 95 18 99/43 96 Intake and Output 12/02/24 12/03/2412/03/25 22:59 06:59 14:59 Output Total 301 Balance -301 Output: Urine 120 Straight 120 Post Void Residual 181 Other: # Bowel Movements 1 Weight 99.79 kg Results CBC & Chem 7: 12/03/24 04:17 12/03/24 04:17 Labs: Abnormal Lab Results - Last 24 Hours (Table) 12/02/24 12/02/24 12/02/24 Range/Units 22:15 22:15 22:15 RBC 2.94 L (4.10-5.20) 10*6/uL Hgb 9.3 L (12.0-15.0) g/dL Hct 27.3 L (37.2-46.3) % MCH (27.0-32.0) pg Immature Gran # 0.07 H (0.00-0.04) 10*3/uL Lymphocytes # (0.90-5.00) 10*3/uL Monocytes # 1.21 H (0.20-1.00) 10*3/uL Eosinophils # (0.04-0.35) 10*3/uL Sodium 132 L (137-145) mmol/L Potassium (3.5-5.1) mmol/L Carbon Dioxide 19 L (22-30) mmol/L Creatinine 1.14 H (0.52-1.04) mg/dL Glucose 108 H (74-99) mg/dL Plasma Lactic Acid Julien 5.3 H* (0.7-2.0) mmol/L Calcium (8.4-10.2) mg/dL Magnesium 1.5 L (1.6-2.3) mg/dL Total Bilirubin 3.5 H (0.2-1.3) mg/dL AST 70 H (14-36) U/L Alkaline Phosphatase 262 H (38-126) U/L Ammonia 61 H (<30) umol/L Albumin 2.9 L (3.5-5.0) g/dL Urine Appearance (Clear) Urine Protein (Negative) Urine Glucose (UA) (Negative) Urine Ketones (Negative) Urine Bilirubin (Negative) Hyaline Casts (0-2) /lpf Urine Mucus (None) /hpf 12/03/24 12/03/24 12/03/24 Range/Units 00:50 03:21 04:17 RBC 2.68 L (4.10-5.20) 10*6/uL Hgb 8.6 L (12.0-15.0) g/dL Hct 25.2 L (37.2-46.3) % MCH 32.1 H (27.0-32.0) pg Immature Gran # 0.05 H (0.00-0.04) 10*3/uL Lymphocytes # 0.55 L (0.90-5.00) 10*3/uL Monocytes # (0.20-1.00) 10*3/uL Eosinophils # 0.01 L (0.04-0.35) 10*3/uL Sodium (137-145) mmol/L Potassium (3.5-5.1) mmol/L Carbon Dioxide (22-30) mmol/L Creatinine (0.52-1.04) mg/dL Glucose (74-99) mg/dL Plasma Lactic Acid Julien 4.2 H* (0.7-2.0) mmol/L Calcium (8.4-10.2) mg/dL Magnesium (1.6-2.3) mg/dL Total Bilirubin (0.2-1.3) mg/dL AST (14-36) U/L Alkaline Phosphatase (38-126) U/L Ammonia (<30) umol/L Albumin (3.5-5.0) g/dL Urine Appearance Cloudy H (Clear) Urine Protein 1+ H (Negative) Urine Glucose (UA) Trace H (Negative) Urine Ketones Trace H (Negative) Urine Bilirubin 1+ H (Negative) Hyaline Casts 22 H (0-2) /lpf Urine Mucus Rare H (None) /hpf 12/03/24 12/03/24 12/03/24 Range/Units 04:17 04:17 07:41 RBC (4.10-5.20) 10*6/uL Hgb (12.0-15.0) g/dL Hct (37.2-46.3) % MCH (27.0-32.0) pg Immature Gran # (0.00-0.04) 10*3/uL Lymphocytes # (0.90-5.00) 10*3/uL Monocytes # (0.20-1.00) 10*3/uL Eosinophils # (0.04-0.35) 10*3/uL Sodium 134 L (137-145) mmol/L Potassium 3.4 L (3.5-5.1) mmol/L Carbon Dioxide 21 L (22-30) mmol/L Creatinine 1.13 H (0.52-1.04) mg/dL Glucose 121 H (74-99) mg/dL Plasma Lactic Acid Julien 3.3 H* 2.5 H* (0.7-2.0) mmol/L Calcium 8.3 L (8.4-10.2) mg/dL Magnesium (1.6-2.3) mg/dL Total Bilirubin 3.8 H (0.2-1.3) mg/dL AST 80 H (14-36) U/L Alkaline Phosphatase 254 H (38-126) U/L Ammonia (<30) umol/L Albumin 2.8 L (3.5-5.0) g/dL Urine Appearance (Clear) Urine Protein (Negative) Urine Glucose (UA) (Negative) Urine Ketones (Negative) Urine Bilirubin (Negative) Hyaline Casts (0-2) /lpf Urine Mucus (None) /hpf 12/03/24 Range/Units 11:16 RBC (4.10-5.20) 10*6/uL Hgb (12.0-15.0) g/dL Hct (37.2-46.3) % MCH (27.0-32.0) pg Immature Gran # (0.00-0.04) 10*3/uL Lymphocytes # (0.90-5.00) 10*3/uL Monocytes # (0.20-1.00) 10*3/uL Eosinophils # (0.04-0.35) 10*3/uL Sodium (137-145) mmol/L Potassium (3.5-5.1) mmol/L Carbon Dioxide (22-30) mmol/L Creatinine (0.52-1.04) mg/dL Glucose (74-99) mg/dL Plasma Lactic Acid Julien 2.1 H* (0.7-2.0) mmol/L Calcium (8.4-10.2) mg/dL Magnesium (1.6-2.3) mg/dL Total Bilirubin (0.2-1.3) mg/dL AST (14-36) U/L Alkaline Phosphatase (38-126) U/L Ammonia (<30) umol/L Albumin (3.5-5.0) g/dL Urine Appearance (Clear) Urine Protein (Negative) Urine Glucose (UA) (Negative) Urine Ketones (Negative) Urine Bilirubin (Negative) Hyaline Casts (0-2) /lpf Urine Mucus (None) /hpf
[2024-12-03] MEDS: diazePAM 2 MG TAB PO SCH (15:16)
[2024-12-03] MEDS: CALCIUM CARB-VIT D 500 MG-5 MCG TAB PO SCH (17:48)
[2024-12-03] MEDS: ALPRAZolam 0.25 MG TAB PO PRN (17:48)
[2024-12-04] MEDS: PANTOPRAZOLE 40 MG TABLET PO SCH (06:24)
[2024-12-04] MEDS: EZETIMIBE 10 MG TAB PO SCH (09:34)
[2024-12-04] MEDS: LACTULOSE 20 GM/30 ML CUP PO PRN (09:36)
--- NOTE | 2024-12-04 19:00 | P.PN ---
Progress Note - Text Progress Note Date: 12/04/24 Chief Complaint: Fall 59-year-old, female patient follows with Dr. Henna Doe. Chronic medical condition include GERD, hyperlipidemia, essential hypertension, alcoholic liver disease follows at the office of Dr. Jeremy Arevalo. Patient was seen by me earlier today in the ER. Patient presented with falls. Patient states she fell out of bed. And she is able to get up and walk when she tripped on the rug. Her brother came and he brought her in. Patient drinks anywhere from 4 to 5 glasses of wine a day. Alcohol admission was 24. Patient's liver also questions. She says she has numbness in both of her feet. Abdomen slightly distended. Denies any fever and chills. December 04: Patient been taken off IV Lasix. On Aldactone. More alert today. With lactulose. Eating everything. On fluid restriction. Nurse informed me short-term ago that patient is not able to ambulate. Weak. Will get PT OT on board. Active Medications Acetaminophen (Acetaminophen Tab 325 Mg Tab) 650 mg PO Q6HR PRN PRN Reason: Fever and/ or Pain Last Admin: 12/04/24 17:05 Dose: 650 mg Albuterol/Ipratropium (Ipratropium-Albuterol 3 Ml Neb) 3 ml INHALATION RT-QID PRN PRN Reason: Shortness Of Breath Or Wheezing Last Admin: 12/03/24 07:39 Dose: 3 ml Alprazolam (Alprazolam 0.25 Mg Tab) 0.25 mg PO DAILY PRN PRN Reason: Anxiety Last Admin: 12/04/24 11:52 Dose: 0.25 mg Calcium Carbonate (Calcium Carb-Vit D 500 Mg-5 Mcg Tab) 1 each PO BID-W/MEALS [facility] Last Admin: 12/04/24 17:08 Dose: Not Given Diazepam (Diazepam 2 Mg Tab) 2 mg PO TID [facility] Last Admin: 12/04/24 17:06 Dose: 2 mg Ezetimibe (Ezetimibe 10 Mg Tab) 10 mg PO DAILY [facility] Last Admin: 12/04/24 09:34 Dose: 10 mg Lactulose (Lactulose 20 Gm/30 Ml Cup) 20 gm PO TID PRN PRN Reason: Constipation Last Admin: 12/04/24 09:36 Dose: 20 gm Magnesium Oxide (Magnesium Oxide 400 Mg Tab) 400 mg PO BID [facility] Last Admin: 12/04/24 09:34 Dose: 400 mg Miscellaneous Information (Potassium Replacement Protocol 1 Each Misc) 1 each MISCELLANE DAILY PRN; Protocol PRN Reason: Per Protocol Miscellaneous Information (Magnesium Replacement Protocol 1 Each Misc) 1 each MISCELLANE DAILY PRN; Protocol PRN Reason: Per Protocol Multivitamins (Multivitamins, Thera 1 Each Tab) 1 each PO DAILY [facility] Last Admin: 12/04/24 09:34 Dose: 1 each Naloxone HCl (Naloxone 0.4 Mg/Ml 1 Ml Vial) 0.2 mg IV Q2M PRN PRN Reason: Opioid Reversal Ondansetron HCl (Ondansetron 4 Mg/2 Ml Vial) 4 mg IVP Q6HR PRN PRN Reason: Nausea And Vomiting Pantoprazole Sodium (Pantoprazole 40 Mg Tablet) 40 mg PO AC-BRKFST [facility] Last Admin: 12/04/24 06:24 Dose: 40 mg Spironolactone (Spironolactone 25 Mg Tab) 100 mg PO DAILY [facility] Last Admin: 12/04/24 09:36 Dose: 100 mg Thiamine HCl (Thiamine 100 Mg Tab) 100 mg PO DAILY [facility] Last Admin: 12/04/24 09:34 Dose: 100 mg Social history: Patient in August of this year.. Smokes small amount of marijuana daily. Drinks about 4 glasses of 5 ounce wine daily and a mixed drink. For 20 years. Patient smoked for 20 years stopped about 25 years ago. Physical examination: VITAL SIGNS: 97.4, 88, 22, 97 x 61, 100% 4 L GENERAL: BMI 32.5, more awake today spider nevi. Pseudo cushingoid facies. Flushed cheeks EYES: Pupils equal. Conjunctiva yellow l. HEENT: External appearance of nose and ears normal, oral cavity grossly normal. NECK: JVD not raised; masses not palpable. HEART: First and second heart sounds are normal; edema present. LUNGS: Respiratory rate normal; clear to auscultation. ABDOMEN: Soft, but distended. Nontender, liver spleen not palpable, no masses palpable. PSYCH: Bit more awake today. Answering questions better t.. MUSCULOSKELETAL:No Clubbing/cyanosis;muscles-grossly intact. OA NEUROLOGICAL: Cranial nerves grossly intact; no facial asymmetry, power grossly intact. Decreased sensation to fine touch distally in both the legs INVESTIGATIONS, reviewed in the clinical context: December 03: White count 7.0 hemoglobin 8.6 platelets 154 sodium 134 potassium 3.4 creatinine 1.13 lactic acid 3.3 AST 80 ALT 23 alkaline phosphatase 254 albumin 2.8 December 02: White count 8.2 hemoglobin 9.3 platelets 171 sodium 132 potassium 3.6 creatinine 1.14 Bernie lactic acid 5.3 total bilirubin 3.5 lipase [address] Ammonia [address] brain: Acute left posterior parietal scalp hematoma. Nonspecific white matter changes. CT scan abdomen pelvis: Hepatic steatosis with surface nodularity. Concerning f or hepatic cirrhosis. Increased moderate volume ascites. Diffuse anasarca. Colonic diverticulosis. August 2024 Hepatitis A IgM, hepatitis B surface antigen, hepatitis B core IgM, hepatitis C IgG, influenza type A, type B, RSV, COVID-19: All negative Ultrasound gallbladder [August 2024]: Liver increased attenuation hepatomegaly. Assessment plan: - Acute hepatic encephalopathy. Patient is underlying cirrhosis. With features of portal hypertension. Elevated ammonia.: Some improvement Lactulose. Titrate to 2-4 bowel movements a day. 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 Resulting in recurrent falls:: Not improving. Today patient not able to be out of bed. PT OT - Acute medical debility from above. Patient unable to be out of bed PT OT -Severe hypomagnesemia: Replace magnesium -Alcohol use disorder CIWA scale. Thiamine. Multivitamin. Valium 2 mg p.o. 3 times daily for DT prophylaxis. Last drink was the night before admission -Alcoholic cirrhosis with findings of portal hypertension -Secondary portal hypertension secondary to alcoholic cirrhosis causing ascites Aldactone - Moderate ascites secondary to portal hypertension secondary to cirrhosis Fluid restriction. Increase Aldactone 100 mg twice daily - Acute obstructive hepatocellular hepatitis from alcoholism Follow LFTs -Hyperbilirubinemia from alcohol liver disease - Essential hypertension, currently blood pressure on his lower side. Stop amlodipine. - GERD with alcoholic gastritis PPI - Peripheral neuropathy secondary to alcoholism contributing to poor balance -Full code Increase Aldactone to twice daily. PT OT. Past Medical History Past Medical History: GERD/Reflux, Hyperlipidemia, Hypertension, Liver Disease Additional Past Medical History / Comment(s): fatty liver, History of Any Multi-Drug Resistant Organisms: None Reported Past Surgical History: Section, Cholecystectomy, Orthopedic Surgery Additional Past Surgical History / Comment(s): rt foot surgery. colonosopy Past Anesthesia/Blood Transfusion Reactions: No Reported Reaction Past Psychological History: Anxiety Smoking Status: Former smoker, Light tobacco smoker Past Alcohol Use History: Daily Past Drug Use History: Marijuana
[2024-12-04] MEDS: SPIRONOLACTONE 25 MG TAB PO SCH (21:07)
[2024-12-05 07:12] LABS: HCT 22.2 % (37.2-46.3); HGB 7.2 g/dL (12.0-15.0); MCH 30.6 pg (27.0-32.0); MCHC 32.4 g/dL (32.0-37.0); MCV 94.5 fL (80.0-97.0); Mean Platelet Volume 10.4 fL (9.5-12.2); Platelet Count 159 10*3/uL (140-440); RBC 2.35 10*6/uL (4.10-5.20); RDW 15.8 % (11.5-14.5); WBC 7.15 10*3/uL (4.50-10.00)
[2024-12-05 07:41] LABS: ALT 28 U/L (4-34); AST 103 U/L (14-36); African American GFR (CKD) 35 (>60 ml/min/1.73 sqM); Albumin 2.7 g/dL (3.5-5.0); Alkaline Phosphatase 234 U/L (38-126); Anion Gap 7 mmol/L; Blood Urea Nitrogen 28 mg/dL (7-17); Calcium 8.3 mg/dL (8.4-10.2); Carbon Dioxide 25 mmol/L (22-30); Chloride 99 mmol/L (98-107); Glucose 100 mg/dL (74-99); Magnesium 2.2 mg/dL (1.6-2.3); Non-African American GFR(CKD) 30 (>60 ml/min/1.73 sqM); Potassium 4.1 mmol/L (3.5-5.1); Sodium 131 mmol/L (137-145); Total Bilirubin 2.4 mg/dL (0.2-1.3); Total Protein 7.1 g/dL (6.3-8.2)
[2024-12-05] MEDS ORDERED: LORazepam 1 MG/0.5 ML VIAL IV PRN ×2 (12:29)
--- NOTE | 2024-12-05 13:27 | P.PN ---
Progress Note - Text Progress Note Date: 12/05/24 Chief Complaint: Fall 59-year-old, female patient follows with Dr. Henna Doe. Chronic medical condition include GERD, hyperlipidemia, essential hypertension, alcoholic liver disease follows at the office of Dr. Jeremy Arevalo. Patient was seen by me earlier today in the ER. Patient presented with falls. Patient states she fell out of bed. And she is able to get up and walk when she tripped on the rug. Her brother came and he brought her in. Patient drinks anywhere from 4 to 5 glasses of wine a day. Alcohol admission was 24. Patient's liver also questions. She says she has numbness in both of her feet. Abdomen slightly distended. Denies any fever and chills. December 04: Patient been taken off IV Lasix. On Aldactone. More alert today. With lactulose. Eating everything. On fluid restriction. Nurse informed me short-term ago that patient is not able to ambulate. Weak. Will get PT OT on board. December 05: Patient is making some conflicting statements. Slightly delirious. Will DC Valium that was given for DT prophylaxis. Change lactulose to 20 g 3 times daily. Hold for less than 4 BMs a day. Depending how she does today in the next 24 hours may want to add rifaximin. Active Medications Acetaminophen (Acetaminophen Tab 325 Mg Tab) 650 mg PO Q6HR PRN PRN Reason: Fever and/ or Pain Last Admin: 12/04/24 17:05 Dose: 650 mg Albuterol/Ipratropium (Ipratropium-Albuterol 3 Ml Neb) 3 ml INHALATION RT-QID PRN PRN Reason: Shortness Of Breath Or Wheezing Last Admin: 12/03/24 07:39 Dose: 3 ml Alprazolam (Alprazolam 0.25 Mg Tab) 0.25 mg PO DAILY PRN PRN Reason: Anxiety Last Admin: 12/05/24 12:00 Dose: 0.25 mg Calcium Carbonate (Calcium Carb-Vit D 500 Mg-5 Mcg Tab) 1 each PO BID-W/MEALS [facility] Last Admin: 12/05/24 05:47 Dose: 1 each Ezetimibe (Ezetimibe 10 Mg Tab) 10 mg PO DAILY [facility] Last Admin: 12/05/24 08:35 Dose: 10 mg Lactulose (Lactulose 20 Gm/30 Ml Cup) 20 gm PO TID [facility] Lorazepam (Lorazepam 1 Mg/0.5 Ml Vial) 1 mg IV Q1HR PRN PRN Reason: CIWA 10 to 15 Lorazepam (Lorazepam 1 Mg/0.5 Ml Vial) 1 mg IV Q2HR PRN PRN Reason: CIWA 8 or 9 Lorazepam (Lorazepam 1 Mg/0.5 Ml Vial) 2 mg IV Q10M PRN PRN Reason: CIWA 16 or higher Stop: 12/07/24 12:30 Magnesium Oxide (Magnesium Oxide 400 Mg Tab) 400 mg PO BID [facility] Last Admin: 12/05/24 08:35 Dose: 400 mg Miscellaneous Information (Potassium Replacement Protocol 1 Each Misc) 1 each MISCELLANE DAILY PRN; Protocol PRN Reason: Per Protocol Miscellaneous Information (Magnesium Replacement Protocol 1 Each Misc) 1 each MISCELLANE DAILY PRN; Protocol PRN Reason: Per Protocol Multivitamins (Multivitamins, Thera 1 Each Tab) 1 each PO DAILY [facility] Last Admin: 12/05/24 08:35 Dose: 1 each Naloxone HCl (Naloxone 0.4 Mg/Ml 1 Ml Vial) 0.2 mg IV Q2M PRN PRN Reason: Opioid Reversal Ondansetron HCl (Ondansetron 4 Mg/2 Ml Vial) 4 mg IVP Q6HR PRN PRN Reason: Nausea And Vomiting Pantoprazole Sodium (Pantoprazole 40 Mg Tablet) 40 mg PO AC-BRKFST [facility] Last Admin: 12/05/24 05:47 Dose: 40 mg Spironolactone (Spironolactone 25 Mg Tab) 100 mg PO BID [facility] Last Admin: 12/05/24 08:34 Dose: 100 mg Thiamine HCl (Thiamine 100 Mg Tab) 100 mg PO DAILY [facility] Last Admin: 12/05/24 08:34 Dose: 100 mg Social history: Patient in August of this year.. Smokes small amount of marijuana daily. Drinks about 4 glasses of 5 ounce wine daily and a mixed drink. For 20 years. Patient smoked for 20 years stopped about 25 years ago. Physical examination: VITAL SIGNS: 97.5, 82, 20, 98 x 59, 90% room air GENERAL: Resting in bed. Does answer questions but sometimes confused spider nevi. Pseudo cushingoid facies. Flushed cheeks EYES: Pupils equal. Conjunctiva yellow l. HEENT: External appearance of nose and ears normal, oral cavity grossly normal. NECK: JVD not raised; masses not palpable. HEART: First and second heart sounds are normal; edema present. LUNGS: Respiratory rate normal; clear to auscultation. ABDOMEN: Soft, but distended. Nontender, liver spleen not palpable, no masses palpable. PSYCH: Tired. Does answer question with sometimes conflicting.. MUSCULOSKELETAL:No Clubbing/cyanosis;muscles-grossly intact. OA NEUROLOGICAL: Cranial nerves grossly intact; no facial asymmetry, power grossly intact. Decreased sensation to fine touch distally in both the legs INVESTIGATIONS, reviewed in the clinical context: December 05: White count 7.1 hemoglobin 7.2 sodium 131 BUN 28 creatinine 1.81 December 03: White count 7.0 hemoglobin 8.6 platelets 154 sodium 134 potassium 3.4 creatinine 1.13 lactic acid 3.3 AST 80 ALT 23 alkaline phosphatase 254 albumin 2.8 December 02: White count 8.2 hemoglobin 9.3 platelets 171 sodium 132 potassium 3.6 creatinine 1.14 Bernie lactic acid 5.3 total bilirubin 3.5 lipase 185[address] Ammonia [address] brain: Acute left posterior parietal scalp hematoma. Nonspecific white matter changes. CT scan abdomen pelvis: Hepatic steatosis with surface nodularity. Concerning for hepatic cirrhosis. Increased moderate volume ascites. Diffuse anasarca. Colonic diverticulosis. August 2024 Hepatitis A IgM, hepatitis B surface antigen, hepatitis B core IgM, hepatitis C IgG, influenza type A, type B, RSV, COVID-19: All negative Ultrasound gallbladder [August 2024]: Liver increased attenuation hepatomegaly. Assessment plan: - Acute hepatic encephalopathy. Patient is underlying cirrhosis. With features of portal hypertension. Elevated ammonia.: Slow improvement t Changed lactulose to 3 times daily e. Titrate to 3-4 bowel movements a day. 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 Resulting in recurrent falls:: Not improving. patient not able to be out of bed. PT OT - Acute medical debility from above. Patient unable to be out of bed PT OT -Severe hypomagnesemia: Replace magnesium -Alcohol use disorder CIWA scale. Thiamine. Multivitamin. Valium 2 mg p.o. 3 times daily for DT prophylaxis- stop Valium Last drink was the night before admission -Alcoholic cirrhosis with findings of portal hypertension -Secondary portal hypertension secondary to alcoholic cirrhosis causing ascites Aldactone - Moderate ascites secondary to portal hypertension secondary to cirrhosis Fluid restriction. Aldactone 100 mg twice daily - Acute kidney injury likely hepatorenal syndrome. Consult nephrology. Follow renal function - Acute obstructive hepatocellular hepatitis from alcoholism Follow LFTs -Hyperbilirubinemia from alcohol liver disease - Essential hypertension, currently blood pressure on his lower side. Stop amlodipine. - GERD with alcoholic gastritis PPI - Peripheral neuropathy secondary to alcoholism contributing to poor balance -Full code PT OT. Consult GI. Consult nephrology. DC Valium. Change lactulose to 3 times daily. May have to add rifaximin tomorrow. CIWA scale. Past Medical History Past Medical History: GERD/Reflux, Hyperlipidemia, Hypertension, Liver Disease Additional Past Medical History / Comment(s): fatty liver, History of Any Multi-Drug Resistant Organisms: None Reported Past Surgical History: Section, Cholecystectomy, Orthopedic Surgery Additional Past Surgical History / Comment(s): rt foot surgery. colonosopy Past Anesthesia/Blood Transfusion Reactions: No Reported Reaction Past Psychological History: Anxiety Smoking Status: Former smoker, Light tobacco smoker Past Alcohol Use History: Daily Past Drug Use History: Marijuana
[2024-12-05] MEDS: LACTULOSE 20 GM/30 ML CUP PO SCH (13:53)
[2024-12-05] MEDS: LORazepam 1 MG/0.5 ML VIAL IV PRN (15:21)
[2024-12-06 07:07] LABS: ALT 35 U/L (4-34); AST 116 U/L (14-36); African American GFR (CKD) 51 (>60 ml/min/1.73 sqM); Albumin 2.6 g/dL (3.5-5.0); Alkaline Phosphatase 221 U/L (38-126); Anion Gap 7 mmol/L; Blood Urea Nitrogen 31 mg/dL (7-17); Calcium 8.6 mg/dL (8.4-10.2); Carbon Dioxide 22 mmol/L (22-30); Chloride 104 mmol/L (98-107); Glucose 98 mg/dL (74-99); Non-African American GFR(CKD) 45 (>60 ml/min/1.73 sqM); Sodium 133 mmol/L (137-145); Total Bilirubin 2.4 mg/dL (0.2-1.3); Total Protein 6.9 g/dL (6.3-8.2)
--- NOTE | 2024-12-06 11:45 | P.NPCON ---
History of Present Illness - Reason for Consult acute renal failure - History of Present Illness Patient is a 59-year-old female with history of alcoholic liver cirrhosis, hypertension, hyperlipidemia and GERD. Patient is admitted to the hospital with increased weakness and fall. She fell out of bed and also tripped on a rug. Blood pressure noted to be low with systolic in the 90s. Status post IV fluids on initial admission. No complaints of shortness of breath Serum creatinine was 1.8 on admission and decreased to 1.3 now. Montoya catheter was placed in the ER. It looks like a bladder scan showed [address] abdomen showed no evidence of obstruction. Ascites and left pleural effusion noted. Past Medical History Past Medical History: GERD/Reflux, Hyperlipidemia, Hypertension, Liver Disease Additional Past Medical History / Comment(s): fatty liver, History of Any Multi-Drug Resistant Organisms: None Reported Past Surgical History: Section, Cholecystectomy, Orthopedic Surgery Additional Past Surgical History / Comment(s): rt foot surgery. colonosopy Past Anesthesia/Blood Transfusion Reactions: No Reported Reaction Past Psychological History: Anxiety Smoking Status: Never smoker Past Alcohol Use History: Daily Additional Past Alcohol Use History / Comment(s): quit 28yrs ago Past Drug Use History: Marijuana Additional Drug Use History / Comment(s): thc edibles and occasional smoking. pt aware not to use 24 hrs before procedure. - Past Family History Mother Family Medical History: CVA/TIA Father Family Medical History: Cancer Additional Family Medical History / Comment(s): lung cancer Medications and Allergies Home Medications Medication Instructions Recorded Confirmed Type ALPRAZolam [Xanax] 0.25 mg PO DAILY PRN 01/01/23 12/03/24 History Omeprazole 20 mg PO DAILY 01/01/23 12/03/24 History Zolpidem Tartrate [Ambien] 10 mg PO HS PRN 01/01/23 12/03/24 History Magnesium Oxide [Mag-Ox] 200 mg PO BID #60 tab 09/15/24 12/03/24 Rx Thiamine [Vitamin B-1] 100 mg PO DAILY #30 tab 09/15/24 12/03/24 Rx Calcium Carb-Vit D 500Mg-5Mcg 1 tab PO BID-W/MEALS 12/03/24 12/03/24 History [Oscal 500+D 5 Mcg (200 Iu)] Ezetimibe [Zetia] 10 mg PO DAILY 12/03/24 12/03/24 History Multivitamins, Thera [Multivitamin 1 tab PO DAILY 12/03/24 12/03/24 History (formulary)] amLODIPine [Norvasc] 2.5 mg PO DAILY 12/03/24 12/03/24 History hydroCHLOROthiazide [Hydrodiuril] 12.5 mg PO DAILY PRN 12/03/24 12/03/24 History Allergies Allergy/AdvReac Type Severity Reaction Status Date / Time codeine Allergy Itching & Verified 12/03/24 10:50 ears ringing Physical Exam Vitals: Vital Signs Temp Pulse Resp BP BP Pulse Ox 12/06/24 09:22 97.4 F L 86 16 113/70 94 L 12/06/24 03:23 97.5 F L 82 16 110/73 93 L 12/05/24 23:05 97.4 F L 85 17 106/69 96 12/05/24 19:45 97.4 F L 80 17 116/72 92 L 12/05/24 17:25 97.4 F L 83 18 105/66 94 L Intake and Output 12/05/24 12/06/24 12/06/24 22:59 06:59 14:59 Intake Total 200 10 250 Output Total 500 Balance 200 -490 250 Intake: IV 20 10 10 Invasive Line 2 20 10 10 Oral 180 240 Output: Urine 500 Other: Voiding Method Indwelling Catheter Indwelling Catheter Indwelling Catheter # Bowel Movements 4 1 Weight 108 kg Patient is awake, comfortable, no acute distress. Examination of the heart S1 and S2 Examination of the lungs bilateral breath sounds are heard Abdomen is soft nontender Examination of lower extremities shows chronic skin changes 1+ edema bilaterally [employer] OPERATOR exam grossly intact, patient is moving all 4 extremities and answers questions Results - Lab Results Most recent lab results Calcium 8.6 mg/dL (8.4-10.2) 12/06/24 06:21 Phosphorus 4.3 mg/dL (2.5-4.5) 12/03/24 04:17 Magnesium 2.2 mg/dL (1.6-2.3) 12/05/24 05:24 12/05/24 05:24 12/06/24 06:21 Assessment and Plan Assessment: 1. Acute kidney injury, ATN secondary to hypotension, improved. No evidence of obstruction on CT abdomen. UA shows 1+ protein no blood. Status post IV fluids in ER. 2. Hypertension maintained on hydrochlorothiazide and Norvasc at home. 3. Alcoholic liver disease with evidence of ascites 4. Hypomagnesemia status post replacement 5. Anemia with no active bleeding noted 6. Mental status changes, improved Plan: Continue off of IV fluids. Continue to hold Norvasc Consider adding low-dose loop diuretics and Aldactone tomorrow. Repeat labs in a.m. Check iron profile Thank you for the consultation. We will continue to follow the patient with you during her hospitalization.
--- NOTE | 2024-12-06 14:19 | P.PN ---
Progress Note - Text Progress Note Date: 12/06/24 Chief Complaint: Fall 59-year-old, female patient follows with Dr. Henna Doe. Chronic medical condition include GERD, hyperlipidemia, essential hypertension, alcoholic liver disease follows at the office of Dr. Jeremy Arevalo. Patient was seen by me earlier today in the ER. Patient presented with falls. Patient states she fell out of bed. And she is able to get up and walk when she tripped on the rug. Her brother came and he brought her in. Patient drinks anywhere from 4 to 5 glasses of wine a day. Alcohol admission was 24. Patient's liver also questions. She says she has numbness in both of her feet. Abdomen slightly distended. Denies any fever and chills. December 04: Patient been taken off IV Lasix. On Aldactone. More alert today. With lactulose. Eating everything. On fluid restriction. Nurse informed me short-term ago that patient is not able to ambulate. Weak. Will get PT OT on board. December 05: Patient is making some conflicting statements. Slightly delirious. Will DC Valium that was given for DT prophylaxis. Change lactulose to 20 g 3 times daily. Hold for less than 4 BMs a day. Depending how she does today in the next 24 hours may want to add rifaximin. December 06: Daughter at the bedside. Tasneem. Lives in apartment [facility]. Lengthy discussion was held regarding patient's social circumstances. When she leaves from here. Had about 50% for breakfast. Sleepy this afternoon. Spoke to the nurse. Doing a bit better. Have the patient ambulate with the daughter. Did require Ativan at night as she was hallucinating. Active Medications Acetaminophen (Acetaminophen Tab 325 Mg Tab) 650 mg PO Q6HR PRN PRN Reason: Fever and/ or Pain Last Admin: 12/04/24 17:05 Dose: 650 mg Albuterol/Ipratropium (Ipratropium-Albuterol 3 Ml Neb) 3 ml INHALATION RT-QID PRN PRN Reason: Shortness Of Breath Or Wheezing Last Admin: 12/03/24 07:39 Dose: 3 ml Alprazolam (Alprazolam 0.25 Mg Tab) 0.25 mg PO DAILY PRN PRN Reason: Anxiety Last Admin: 12/06/24 09:13 Dose: 0.25 mg Calcium Carbonate (Calcium Carb-Vit D 500 Mg-5 Mcg Tab) 1 each PO BID-W/MEALS [facility] Last Admin: 12/06/24 05:18 Dose: 1 each Ezetimibe (Ezetimibe 10 Mg Tab) 10 mg PO DAILY [facility] Last Admin: 12/06/24 09:13 Dose: 10 mg Lactulose (Lactulose 20 Gm/30 Ml Cup) 20 gm PO TID [facility] Last Admin: 12/06/24 09:13 Dose: 20 gm Lorazepam (Lorazepam 1 Mg/0.5 Ml Vial) 1 mg IV Q1HR PRN PRN Reason: CIWA 10 to 15 Lorazepam (Lorazepam 1 Mg/0.5 Ml Vial) 1 mg IV Q2HR PRN PRN Reason: CIWA 8 or 9 Last Admin: 12/06/24 05:17 Dose: 1 mg Lorazepam (Lorazepam 1 Mg/0.5 Ml Vial) 2 mg IV Q10M PRN PRN Reason: CIWA 16 or higher Stop: 12/07/24 12:30 Magnesium Oxide (Magnesium Oxide 400 Mg Tab) 400 mg PO BID [facility] Last Admin: 12/06/24 09:12 Dose: 400 mg Miscellaneous Information (Potassium Replacement Protocol 1 Each Misc) 1 each MISCELLANE DAILY PRN; Protocol PRN Reason: Per Protocol Miscellaneous Information (Magnesium Replacement Protocol 1 Each Misc) 1 each MISCELLANE DAILY PRN; Protocol PRN Reason: Per Protocol Multivitamins (Multivitamins, Thera 1 Each Tab) 1 each PO DAILY [facility] Last Admin: 12/06/24 09:13 Dose: 1 each Naloxone HCl (Naloxone 0.4 Mg/Ml 1 Ml Vial) 0.2 mg IV Q2M PRN PRN Reason: Opioid Reversal Ondansetron HCl (Ondansetron 4 Mg/2 Ml Vial) 4 mg IVP Q6HR PRN PRN Reason: Nausea And Vomiting Pantoprazole Sodium (Pantoprazole 40 Mg Tablet) 40 mg PO AC-BRKFST [facility] Last Admin: 12/06/24 05:18 Dose: 40 mg Spironolactone (Spironolactone 25 Mg Tab) 100 mg PO BID [facility] Last Admin: 12/06/24 09:13 Dose: 100 mg Thiamine HCl (Thiamine 100 Mg Tab) 100 mg PO DAILY [facility] Last Admin: 12/06/24 09:13 Dose: 100 mg Social history: Patient in August of this year.. Smokes small amount of marijuana daily. Drinks about 4 glasses of 5 ounce wine daily and a mixed drink. For 20 years. Patient smoked for 20 years stopped about 25 years ago. Physical examination: VITAL SIGNS: 97.6, 87, 16, 09/24/1982, 92% room air GENERAL: Sleepy. Spider nevi. Pseudo cushingoid facies. Flushed cheeks EYES: Pupils equal. Conjunctiva yellow l. HEENT: External appearance of nose and ears normal, oral cavity grossly normal. NECK: JVD not raised; masses not palpable. HEART: First and second heart sounds are normal; edema present. LUNGS: Respiratory rate normal; clear to auscultation. ABDOMEN: Soft, but distended. Nontender, liver spleen not palpable, no masses palpable. PSYCH: Tired. Sleepy MUSCULOSKELETAL:No Clubbing/cyanosis;muscles-grossly intact. OA NEUROLOGICAL: Cranial nerves grossly intact; no facial asymmetry, power grossly intact. Decreased sensation to fine touch distally in both the legs INVESTIGATIONS, reviewed in the clinical context: December 06: Potassium 4. 31 creatinine 1.31 December 05: White count 7.1 hemoglobin 7.2 sodium 131 BUN 28 creatinine 1.81 December 03: White count 7.0 hemoglobin 8.6 platelets 154 sodium 134 potassium 3.4 creatinine 1.13 lactic acid 3.3 AST 80 ALT 23 alkaline phosphatase 254 albumin 2.8 December 02: White count 8.2 hemoglobin 9.3 platelets 171 sodium 132 potassium 3.6 creatinine 1.14 Bernie lactic acid 5.3 total bilirubin 3.5 [address]ase [address] Ammonia [address] brain: Acute left posterior parietal scalp hematoma. Nonspecific white matter changes. CT scan abdomen pelvis: Hepatic steatosis with surface nodularity. Concerning for hepatic cirrhosis. Increased moderate volume ascites. Diffuse anasarca. Colonic diverticulosis. August 2024 Hepatitis A IgM, hepatitis B surface antigen, hepatitis B core IgM, hepatitis C IgG, influenza type A, type B, RSV, COVID-19: All negative Ultrasound gallbladder [August 2024]: Liver increased attenuation hepatomegaly. Assessment plan: - Acute hepatic encephalopathy. Patient is underlying cirrhosis. With features of portal hypertension. Elevated ammonia.: Improving Lactulose to 3 times daily e. Titrate to 3-4 bowel movements a day. 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 Resulting in recurrent falls:: Not improving. patient not able to be out of bed. PT OT - Acute medical debility from above. Patient unable to be out of bed PT OT -Severe hypomagnesemia: Replace magnesium -Alcohol use disorder CIWA scale. Thiamine. Multivitamin. Valium 2 mg p.o. 3 times daily for DT prophylaxis- stop Valium Last drink was the night before admission -Alcoholic cirrhosis with findings of portal hypertension -Secondary portal hypertension secondary to alcoholic cirrhosis causing ascites Aldactone - Moderate ascites secondary to portal hypertension secondary to cirrhosis Fluid restriction. Aldactone 100 mg twice daily - Acute kidney injury likely hepatorenal syndrome. Consult nephrology. Follow renal function - Acute obstructive hepatocellular hepatitis from alcoholism Follow LFTs -Hyperbilirubinemia from alcohol liver disease - Essential hypertension, currently blood pressure on his lower side. Stop amlodipine. - GERD with alcoholic gastritis PPI - Peripheral neuropathy secondary to alcoholism contributing to poor balance -Full code Discussed at length with patient's daughter Tasneem at the bedside. Look for change in social circumstances. Eating better today. Continue current treatment plan. Past Medical History Past Medical History: GERD/Reflux, Hyperlipidemia, Hypertension, Liver Disease Additional Past Medical History / Comment(s): fatty liver, History of Any Multi-Drug Resistant Organisms: None Reported Past Surgical History: Section, Cholecystectomy, Orthopedic Surgery Additional Past Surgical History / Comment(s): rt foot surgery. colonosopy Past Anesthesia/Blood Transfusion Reactions: No Reported Reaction Past Psychological History: Anxiety Smoking Status: Former smoker, Light tobacco smoker Past Alcohol Use History: Daily Past Drug Use History: Marijuana
[2024-12-07 06:50] LABS: African American GFR (CKD) 77 (>60 ml/min/1.73 sqM); Anion Gap 4 mmol/L; Blood Urea Nitrogen 25 mg/dL (7-17); Calcium 8.8 mg/dL (8.4-10.2); Carbon Dioxide 26 mmol/L (22-30); Chloride 105 mmol/L (98-107); Glucose 94 mg/dL (74-99); Non-African American GFR(CKD) 67 (>60 ml/min/1.73 sqM); Potassium 3.8 mmol/L (3.5-5.1); Sodium 135 mmol/L (137-145)
[2024-12-07 09:00] LABS: Albumin 2.5 g/dL (3.5-5.0); Bilirubin, Delta 1.4 mg/dL (0.0-0.2); Bilirubin,Unconjugated 1.1 mg/dL (0.0-1.1); Total Bilirubin 2.5 mg/dL (0.2-1.3); Total Protein 6.7 g/dL (6.3-8.2)
--- NOTE | 2024-12-07 11:48 | P.PN ---
Subjective Patient is seen for follow-up for acute kidney injury. Renal function has improved. Serum creatinine is down to 0.9 mg/dL. No significant complaints today. Urine output about 1 L for 24 hours Objective - Vital Signs Vital signs: Vital Signs Temp 97.8 F 12/07/24 11:27 Pulse 85 12/07/24 11:27 Resp 22 12/07/24 11:27 BP 120/78 12/07/24 11:27 Pulse Ox 98 12/07/24 11:27 FiO2 Intake & Output 12/06/24 12/07/24 12/07/24 18:59 06:59 18:59 Intake Total 500 20 130 Output Total 550 525 Balance -50 -505 130 Intake: IV 20 20 10 Invasive Line 2 20 20 10 Oral 480 120 Output: Urine 550 525 Other: Voiding Method Indwelling Catheter Indwelling Catheter Indwelling Catheter # Voids 1 # Bowel Movements 2 1 - Exam Patient is awake, comfortable, no acute distress. Examination of the heart S1 and S2 Examination of the lungs bilateral breath sounds are heard Abdomen is soft nontender Examination of lower extremities shows chronic skin changes 1+ edema bilaterally [employer] LOADER OPERATOR exam grossly intact, patient is moving all 4 extremities and answers questions - Labs CBC & Chem 7: 12/05/24 05:24 12/07/24 06:02 Labs: Abnormal Lab Results - Last 24 Hours (Table) 12/06/24 12/07/24 12/07/24 Range/Units 06:21 06:02 06:02 Sodium 135 L (137-145) mmol/L BUN 25 H (7-17) mg/dL Iron 28 L (50-170) UG/DL TIBC 175 L (228-460) UG/DL Transferrin 125.0 L (204.0-354.0) mg/dL Total Bilirubin 2.5 H (0.2-1.3) mg/dL Delta Bilirubin 1.4 H (0.0-0.2) mg/dL AST 114 H (14-36) U/L ALT 39 H (4-34) U/L Alkaline Phosphatase 236 H (38-126) U/L Albumin 2.5 L (3.5-5.0) g/dL Assessment and Plan Assessment: 1. Acute kidney injury, ATN secondary to hypotension, improved. No evidence of obstruction on CT abdomen. UA shows 1+ protein no blood. Status post IV fluids in ER. 2. Hypertension maintained on hydrochlorothiazide and Norvasc at home. 3. Alcoholic liver disease with evidence of ascites 4. Hypomagnesemia status post replacement 5. Anemia with no active bleeding noted. Iron saturation at 16%, started oral iron 6. Mental status changes, improved Plan: Continue off of IV fluids. Add low-dose loop diuretics Continue to hold Norvasc Repeat labs in a.m. Add oral iron
[2024-12-07] MEDS: FUROSEMIDE 40 MG TAB PO SCH (12:18)
--- NOTE | 2024-12-07 20:47 | P.PN ---
Progress Note - Text Progress Note Date: 12/07/24 Chief Complaint: Fall 59-year-old, female patient follows with Dr. Henna Doe. Chronic medical condition include GERD, hyperlipidemia, essential hypertension, alcoholic liver disease follows at the office of Dr. Jeremy Arevalo. Patient was seen by me earlier today in the ER. Patient presented with falls. Patient states she fell out of bed. And she is able to get up and walk when she tripped on the rug. Her brother came and he brought her in. Patient drinks anywhere from 4 to 5 glasses of wine a day. Alcohol admission was 24. Patient's liver also questions. She says she has numbness in both of her feet. Abdomen slightly distended. Denies any fever and chills. December 04: Patient been taken off IV Lasix. On Aldactone. More alert today. With lactulose. Eating everything. On fluid restriction. Nurse informed me short-term ago that patient is not able to ambulate. Weak. Will get PT OT on board. December 05: Patient is making some conflicting statements. Slightly delirious. Will DC Valium that was given for DT prophylaxis. Change lactulose to 20 g 3 times daily. Hold for less than 4 BMs a day. Depending how she does today in the next 24 hours may want to add rifaximin. December 06: Daughter at the bedside. Tasneem. Lives in apartment [facility]. Lengthy discussion was held regarding patient's social circumstances. When she leaves from here. Had about 50% for breakfast. Sleepy this afternoon. Spoke to the nurse. Doing a bit better. Have the patient ambulate with the daughter. Did require Ativan at night as she was hallucinating. December 07: Patient more awake. Still a bit distant. Did not walk a bit. Daughter will be staying over with the patient for about a week. Abdomen distended. Will consult IR for paracentesis. Patient remains on fluid restriction. Oral Lasix was added in addition to Aldactone. Active Medications Acetaminophen (Acetaminophen Tab 325 Mg Tab) 650 mg PO Q6HR PRN PRN Reason: Fever and/ or Pain Last Admin: 12/04/24 17:05 Dose: 650 mg Alprazolam (Alprazolam 0.25 Mg Tab) 0.25 mg PO DAILY PRN PRN Reason: Anxiety Last Admin: 12/06/24 22:03 Dose: 0.25 mg Calcium Carbonate (Calcium Carb-Vit D 500 Mg-5 Mcg Tab) 1 each PO BID-W/MEALS [facility] Last Admin: 12/07/24 16:52 Dose: 1 each Ezetimibe (Ezetimibe 10 Mg Tab) 10 mg PO DAILY [facility] Last Admin: 12/07/24 08:27 Dose: 10 mg Furosemide (Furosemide 40 Mg Tab) 40 mg PO DAILY [facility] Last Admin: 12/07/24 12:18 Dose: 40 mg Lactulose (Lactulose 20 Gm/30 Ml Cup) 20 gm PO TID [facility] Last Admin: 12/07/24 20:11 Dose: Not Given Lorazepam (Lorazepam 1 Mg/0.5 Ml Vial) 1 mg IV Q1HR PRN PRN Reason: CIWA 10 to 15 Lorazepam (Lorazepam 1 Mg/0.5 Ml Vial) 1 mg IV Q2HR PRN PRN Reason: CIWA 8 or 9 Last Admin: 12/06/24 05:17 Dose: 1 mg Magnesium Oxide (Magnesium Oxide 400 Mg Tab) 400 mg PO BID [facility] Last Admin: 12/07/24 20:08 Dose: 400 mg Miscellaneous Information (Potassium Replacement Protocol 1 Each Misc) 1 each MISCELLANE DAILY PRN; Protocol PRN Reason: Per Protocol Miscellaneous Information (Magnesium Replacement Protocol 1 Each Misc) 1 each MISCELLANE DAILY PRN; Protocol PRN Reason: Per Protocol Multivitamins (Multivitamins, Thera 1 Each Tab) 1 each PO DAILY [facility] Last Admin: 12/07/24 08:27 Dose: 1 each Naloxone HCl (Naloxone 0.4 Mg/Ml 1 Ml Vial) 0.2 mg IV Q2M PRN PRN Reason: Opioid Reversal Ondansetron HCl (Ondansetron 4 Mg/2 Ml Vial) 4 mg IVP Q6HR PRN PRN Reason: Nausea And Vomiting Pantoprazole Sodium (Pantoprazole 40 Mg Tablet) 40 mg PO AC-BRKFST [facility] Last Admin: 12/07/24 06:05 Dose: 40 mg Spironolactone (Spironolactone 25 Mg Tab) 100 mg PO BID [facility] Last Admin: 12/07/24 20:08 Dose: 100 mg Thiamine HCl (Thiamine 100 Mg Tab) 100 mg PO DAILY [facility] Last Admin: 12/07/24 08:27 Dose: 100 mg Social history: Patient in August of this year.. Smokes small amount of marijuana daily. Drinks about 4 glasses of 5 ounce wine daily and a mixed drink. For 20 years. Patient smoked for 20 years stopped about 25 years ago. Physical examination: VITAL SIGNS: 97.9, 87, 20, 111 x 72, 95% room air GENERAL: Reclining in bed, more awake. Spider nevi. Pseudo cushingoid facies. Flushed cheeks EYES: Pupils equal. Conjunctiva yellow l. HEENT: External appearance of nose and ears normal, oral cavity grossly normal. NECK: JVD not raised; masses not palpable. HEART: First and second heart sounds are normal; edema present. LUNGS: Respiratory rate normal; clear to auscultation. ABDOMEN: Soft, more distended. Nontender, liver spleen not palpable, no masses palpable. PSYCH: Answering simple questions. Sometimes a bit distant MUSCULOSKELETAL:No Clubbing/cyanosis;muscles-grossly intact. OA NEUROLOGICAL: Cranial nerves grossly intact; no facial asymmetry, power grossly intact. Decreased sensation to fine touch distally in both the legs INVESTIGATIONS, reviewed in the clinical context: December 07: Potassium 3.8 creatinine 0.94 total bilirubin 2.5 AST 114 ALT 39 December 06: Potassium 4. 31 creatinine 1.31 December 05: White count 7.1 hemoglobin 7.2 sodium 131 BUN 28 creatinine 1.81 December 03: White count 7.0 hemoglobin 8.6 platelets 154 sodium 134 potassium 3.4 creatinine 1.13 lactic acid 3.3 AST 80 ALT 23 alkaline phosphatase 254 albumin 2.8 December 02: White count 8.2 hemoglobin 9.3 platelets 171 sodium 132 potassium 3.6 creatinine 1.14 Bernie lactic acid 5.3 total bilirubin 3.5 lipase 185[address] Ammonia [address] brain: Acute left posterior parietal scalp hematoma. Nonspecific white matter changes. CT scan abdomen pelvis: Hepatic steatosis with surface nodularity. Concerning for hepatic cirrhosis. Increased moderate volume ascites. Diffuse anasarca. Colonic diverticulosis. August 2024 Hepatitis A IgM, hepatitis B surface antigen, hepatitis B core IgM, hepatitis C IgG, influenza type A, type B, RSV, COVID-19: All negative Ultrasound gallbladder [August 2024]: Liver increased attenuation hepatomegaly. Assessment plan: - Acute hepatic encephalopathy. Patient is underlying cirrhosis. With features of portal hypertension. Elevated ammonia.: Slowly improving Lactulose to 3 times daily e. Titrate to 3-4 bowel movements a day. 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 Resulting in recurrent falls:: Some improvement Patient did walk around the room. PT OT - Acute medical debility from above. Some improvement PT OT -Severe hypomagnesemia: Replace magnesium -Alcohol use disorder CIWA scale. Thiamine. Multivitamin. Last drink was the night before admission -Alcoholic cirrhosis with findings of portal hypertension -Secondary portal hypertension secondary to alcoholic cirrhosis causing ascites Aldactone. Lasix Add Coreg 1.563 mg twice daily - Moderate ascites secondary to portal hypertension secondary to cirrhosis Fluid restriction. Aldactone 100 mg twice daily. Lasix 40 mg added today Consult interventional radiology for paracentesis - Acute kidney injury likely hepatorenal syndrome.: Improving Nephrology following. Follow renal function - Acute obstructive hepatocellular hepatitis from alcoholism Follow LFTs -Hyperbilirubinemia from alcohol liver disease - Essential hypertension, currently blood pressure on his lower side. Stop amlodipine. - GERD with alcoholic gastritis PPI - Peripheral neuropathy secondary to alcoholism contributing to poor balance -Full code Increase activity. PT OT on the case. Add Coreg 1.563 twice daily for portal hypertension. Consult interventional radiology for possible paracentesis Past Medical History Past Medical History: GERD/Reflux, Hyperlipidemia, Hypertension, Liver Disease Additional Past Medical History / Comment(s): fatty liver, History of Any Multi-Drug Resistant Organisms: None Reported Past Surgical History: Section, Cholecystectomy, Orthopedic Surgery Additional Past Surgical History / Comment(s): rt foot surgery. colonosopy Past Anesthesia/Blood Transfusion Reactions: No Reported Reaction Past Psychological History: Anxiety Smoking Status: Former smoker, Light tobacco smoker Past Alcohol Use History: Daily Past Drug Use History: Marijuana
[2024-12-07] MEDS: carvediloL 3.125 MG TAB PO SCH (21:06)
[2024-12-08 06:03] LABS: HCT 24.2 % (37.2-46.3); HGB 7.9 g/dL (12.0-15.0); MCHC 32.6 g/dL (32.0-37.0); MCV 94.9 fL (80.0-97.0); Mean Platelet Volume 10.2 fL (9.5-12.2); Platelet Count 129 10*3/uL (140-440); RBC 2.55 10*6/uL (4.10-5.20); RDW 15.9 % (11.5-14.5); WBC 4.86 10*3/uL (4.50-10.00)
[2024-12-08 06:16] LABS: INR 1.3 (<1.2); Partial Thromboplastin Time 27.8 sec (22.0-30.0); Prothrombin Time 14.1 sec (10.0-12.5)
[2024-12-08 06:25] LABS: ALT 43 U/L (4-34); AST 119 U/L (14-36); African American GFR (CKD) >90 (>60 ml/min/1.73 sqM); Albumin 2.7 g/dL (3.5-5.0); Alkaline Phosphatase 222 U/L (38-126); Anion Gap 4 mmol/L; Blood Urea Nitrogen 20 mg/dL (7-17); Calcium 9.1 mg/dL (8.4-10.2); Carbon Dioxide 29 mmol/L (22-30); Chloride 103 mmol/L (98-107); Glucose 94 mg/dL (74-99); Magnesium 1.6 mg/dL (1.6-2.3); Non-African American GFR(CKD) 87 (>60 ml/min/1.73 sqM); Potassium 3.7 mmol/L (3.5-5.1); Sodium 136 mmol/L (137-145); Total Bilirubin 2.9 mg/dL (0.2-1.3); Total Protein 6.9 g/dL (6.3-8.2)
[2024-12-08 08:54] VITALS: RESP 16
--- NOTE | 2024-12-08 16:27 | P.PN ---
Subjective Patient is seen for follow-up for acute kidney injury. Renal function has improved. Serum creatinine is down to 0.7 mg/dL. No significant complaints today. Montoya catheter was removed. Maintained on oral Lasix. Patient has significant lower extremity edema. Objective - Vital Signs Vital signs: Vital Signs Temp 97.4 F L 12/08/24 08:30 Pulse 75 12/08/24 15:45 Resp 16 12/08/24 15:45 BP 108/67 12/08/24 15:45 Pulse Ox 96 12/08/24 15:45 FiO2 Intake & Output 12/07/24 12/08/24 12/08/24 18:59 06:59 18:59 Intake Total 488 Output Total 1200 150 1 Balance -712 -150 -1 Weight 110.7 kg Intake: IV 10 Invasive Line 2 10 Oral 478 Output: Urine 1200 150 Stool 1 Other: Voiding Method Indwelling Catheter Toilet Toilet Bedside Commode Bedside Commode # Voids 1 1 1 # Bowel Movements 1 - Exam Patient is awake, comfortable, no acute distress. Examination of the heart S1 and S2 Examination of the lungs bilateral breath sounds are heard Abdomen is soft nontender Examination of lower extremities shows chronic skin changes 2+ edema bilaterally [employer]RAW[employer] exam grossly intact, patient is moving all 4 extremities and answers questions - Labs CBC & Chem 7: 12/08/24 05:35 12/08/24 05:35 Labs: Abnormal Lab Results - Last 24 Hours (Table) 12/08/24 12/08/24 12/08/24 Range/Units 05:35 05:35 05:35 RBC 2.55 L (4.10-5.20) 10*6/uL Hgb 7.9 L (12.0-15.0) g/dL Hct 24.2 L (37.2-46.3) % Plt Count 129 L (140-440) 10*3/uL PT 14.1 H (10.0-12.5) sec INR 1.3 H (<1.2) Sodium 136 L (137-145) mmol/L BUN 20 H (7-17) mg/dL Total Bilirubin 2.9 H (0.2-1.3) mg/dL AST 119 H (14-36) U/L ALT 43 H (4-34) U/L Alkaline Phosphatase 222 H (38-126) U/L Albumin 2.7 L (3.5-5.0) g/dL Assessment and Plan Assessment: 1. Acute kidney injury, ATN secondary to hypotension, improved. No evidence of obstruction on CT abdomen. UA shows 1+ protein no blood. Status post IV fluids in ER. 2. Hypertension maintained on hydrochlorothiazide and Norvasc at home. 3. Alcoholic liver disease with evidence of ascites 4. Hypomagnesemia status post replacement 5. Anemia with no active bleeding noted. Iron saturation at 16%, started oral iron 6. Mental status changes, improved 7. Volume overload Plan: Increase diuretics and changed to IV Lasix Continue with Aldactone Continue to hold Norvasc Repeat labs in a.m.
--- NOTE | 2024-12-08 20:10 | P.PN ---
Progress Note - Text Progress Note Date: 12/08/24 Chief Complaint: Fall 59-year-old, female patient follows with Dr. Henna Doe. Chronic medical condition include GERD, hyperlipidemia, essential hypertension, alcoholic liver disease follows at the office of Dr. Jeremy Arevalo. Patient was seen by me earlier today in the ER. Patient presented with falls. Patient states she fell out of bed. And she is able to get up and walk when she tripped on the rug. Her brother came and he brought her in. Patient drinks anywhere from 4 to 5 glasses of wine a day. Alcohol admission was 24. Patient's liver also questions. She says she has numbness in both of her feet. Abdomen slightly distended. Denies any fever and chills. December 04: Patient been taken off IV Lasix. On Aldactone. More alert today. With lactulose. Eating everything. On fluid restriction. Nurse informed me short-term ago that patient is not able to ambulate. Weak. Will get PT OT on board. December 05: Patient is making some conflicting statements. Slightly delirious. Will DC Valium that was given for DT prophylaxis. Change lactulose to 20 g 3 times daily. Hold for less than 4 BMs a day. Depending how she does today in the next 24 hours may want to add rifaximin. December 06: Daughter at the bedside. Tasneem. Lives in apartment [facility]. Lengthy discussion was held regarding patient's social circumstances. When she leaves from here. Had about 50% for breakfast. Sleepy this afternoon. Spoke to the nurse. Doing a bit better. Have the patient ambulate with the daughter. Did require Ativan at night as she was hallucinating. December 07: Patient more awake. Still a bit distant. Did not walk a bit. Daughter will be staying over with the patient for about a week. Abdomen distended. Will consult IR for paracentesis. Patient remains on fluid restriction. Oral Lasix was added in addition to Aldactone. December 08: Send is not done as patient not having enough fluid. Patient has been walking around the room and up to the bathroom. Remains on diuretics. Jerome wrap lower extremity. Discussed with the patient and daughter. Plan for discharge tomorrow. Active Medications Acetaminophen (Acetaminophen Tab 325 Mg Tab) 650 mg PO Q6HR PRN PRN Reason: Fever and/ or Pain Last Admin: 12/04/24 17:05 Dose: 650 mg Alprazolam (Alprazolam 0.25 Mg Tab) 0.25 mg PO DAILY PRN PRN Reason: Anxiety Last Admin: 12/06/24 22:03 Dose: 0.25 mg Calcium Carbonate (Calcium Carb-Vit D 500 Mg-5 Mcg Tab) 1 each PO BID-W/MEALS [facility] Last Admin: 12/08/24 19:55 Dose: 1 each Carvedilol (Carvedilol 3.125 Mg Tab) 1.563 mg PO BID-W/MEALS [facility] Last Admin: 12/08/24 16:58 Dose: 1.563 mg Ezetimibe (Ezetimibe 10 Mg Tab) 10 mg PO DAILY [facility] Last Admin: 12/08/24 08:57 Dose: 10 mg Furosemide (Furosemide 40 Mg Tab) 40 mg PO DAILY [facility] Last Admin: 12/08/24 08:57 Dose: 40 mg Lactulose (Lactulose 20 Gm/30 Ml Cup) 20 gm PO TID [facility] Last Admin: 12/08/24 19:58 Dose: Not Given Lorazepam (Lorazepam 1 Mg/0.5 Ml Vial) 1 mg IV Q1HR PRN PRN Reason: CIWA 10 to 15 Lorazepam (Lorazepam 1 Mg/0.5 Ml Vial) 1 mg IV Q2HR PRN PRN Reason: CIWA 8 or 9 Last Admin: 12/06/24 05:17 Dose: 1 mg Magnesium Oxide (Magnesium Oxide 400 Mg Tab) 400 mg PO BID [facility] Last Admin: 12/08/24 19:56 Dose: 400 mg Miscellaneous Information (Potassium Replacement Protocol 1 Each Misc) 1 each MISCELLANE DAILY PRN; Protocol PRN Reason: Per Protocol Miscellaneous Information (Magnesium Replacement Protocol 1 Each Misc) 1 each MISCELLANE DAILY PRN; Protocol PRN Reason: Per Protocol Multivitamins (Multivitamins, Thera 1 Each Tab) 1 each PO DAILY [facility] Last Admin: 12/08/24 08:57 Dose: 1 each Naloxone HCl (Naloxone 0.4 Mg/Ml 1 Ml Vial) 0.2 mg IV Q2M PRN PRN Reason: Opioid Reversal Ondansetron HCl (Ondansetron 4 Mg/2 Ml Vial) 4 mg IVP Q6HR PRN PRN Reason: Nausea And Vomiting Pantoprazole Sodium (Pantoprazole 40 Mg Tablet) 40 mg PO AC-BRKFST [facility] Last Admin: 12/08/24 06:34 Dose: 40 mg Spironolactone (Spironolactone 25 Mg Tab) 100 mg PO BID [facility] Last Admin: 12/08/24 19:56 Dose: 100 mg Thiamine HCl (Thiamine 100 Mg Tab) 100 mg PO DAILY [facility] Last Admin: 12/08/24 08:57 Dose: 100 mg Social history: Patient in August of this year.. Smokes small amount of marijuana daily. Drinks about 4 glasses of 5 ounce wine daily and a mixed drink. For 20 years. Patient smoked for 20 years stopped about 25 years ago. Physical examination: VITAL SIGNS: 97.4, 75, 16, one 8 x 67, 96% room air GENERAL: Reclining in bed, awake but tired. Spider nevi. Pseudo cushingoid facies. Flushed cheeks EYES: Pupils equal. Conjunctiva yellow l. HEENT: External appearance of nose and ears normal, oral cavity grossly normal. NECK: JVD not raised; masses not palpable. HEART: First and second heart sounds are normal; edema present. LUNGS: Respiratory rate normal; clear to auscultation. ABDOMEN: Soft, more distended. Nontender, liver spleen not palpable, no masses palpable. PSYCH: Answering simple questions. Sometimes a bit distant MUSCULOSKELETAL:No Clubbing/cyanosis;muscles-grossly intact. OA NEUROLOGICAL: Cranial nerves grossly intact; no facial asymmetry, power grossly intact. Decreased sensation to fine touch distally in both the legs INVESTIGATIONS, reviewed in the clinical context: December 08: White count 4.8 hemoglobin 7.9 platelets 129 potassium 3.7 creatinine 0.76 AST 119 ALT 43 December 07: Potassium 3.8 creatinine 0.94 total bilirubin 2.5 AST 114 ALT 39 December 06: Potassium 4. 31 creatinine 1.31 December 05: White count 7.1 hemoglobin 7.2 sodium 131 BUN 28 creatinine 1.81 December 03: White count 7.0 hemoglobin 8.6 platelets 154 sodium 134 potassium 3.4 creatinine 1.13 lactic acid 3.3 AST 80 ALT 23 alkaline phosphatase 254 albumin 2.8 December 02: White count 8.2 hemoglobin 9.3 platelets 171 sodium 132 potassium 3.6 creatinine 1.14 Bernie lactic acid 5.3 total bilirubin 3.5 lipase 185[address] Ammonia [address] brain: Acute left posterior parietal scalp hematoma. Nonspecific white matter changes. CT scan abdomen pelvis: Hepatic steatosis with surface nodularity. Concerning for hepatic cirrhosis. Increased moderate volume ascites. Diffuse anasarca. Colonic diverticulosis. August 2024 Hepatitis A IgM, hepatitis B surface antigen, hepatitis B core IgM, hepatitis C IgG, influenza type A, type B, RSV, COVID-19: All negative Ultrasound gallbladder [August 2024]: Liver increased attenuation hepatomegaly. Assessment plan: - Acute hepatic encephalopathy. Patient is underlying cirrhosis. With features of portal hypertension. Elevated ammonia.: Improving Lactulose 20 mg 3 times daily titrate to 3-4 bowel movements a day. 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 Resulting in recurrent falls:: Some improvement Patient did walk around the room in the bathroom. PT OT following - Acute medical debility from above. Some improvement PT OT -Severe hypomagnesemia: Replace magnesium -Alcohol use disorder CIWA scale. Thiamine. Multivitamin. Last drink was the night before admission -Alcoholic cirrhosis with findings of portal hypertension -Secondary portal hypertension secondary to alcoholic cirrhosis causing ascites Aldactone. Lasix Coreg 1.563 mg twice daily - Moderate ascites secondary to portal hypertension secondary to cirrhosis Fluid restriction. Aldactone 100 mg twice daily. Increase Lasix to 40 mg twice daily Per interventional radiology not enough fluid for paracentesis. - Acute kidney injury likely hepatorenal syndrome.: Improving Nephrology following. Follow renal function - Acute obstructive hepatocellular hepatitis from alcoholism Follow LFTs -Hyperbilirubinemia from alcohol liver disease - Essential hypertension, currently blood pressure on his lower side. Stop amlodipine. - GERD with alcoholic gastritis PPI - Peripheral neuropathy secondary to alcoholism contributing to poor balance -Full code Increase activity. PT OT following. Discussed with patient's daughter. Daughter will be setting up the social aspect when discharge. Will be staying with the patient for at least a week. Increase Lasix to 40 mg twice daily. Past Medical History Past Medical History: GERD/Reflux, Hyperlipidemia, Hypertension, Liver Disease Additional Past Medical History / Comment(s): fatty liver, History of Any Multi-Drug Resistant Organisms: None Reported Past Surgical History: Section, Cholecystectomy, Orthopedic Surgery Additional Past Surgical History / Comment(s): rt foot surgery. colonosopy Past Anesthesia/Blood Transfusion Reactions: No Reported Reaction Past Psychological History: Anxiety Smoking Status: Former smoker, Light tobacco smoker Past Alcohol Use History: Daily Past Drug Use History: Marijuana
[2024-12-08] MEDS: FUROSEMIDE 40 MG TAB PO SCH (20:59)
[2024-12-09 03:48] VITALS: TEMP 97.5
[2024-12-09 06:50] LABS: African American GFR (CKD) >90 (>60 ml/min/1.73 sqM); Anion Gap 5 mmol/L; Blood Urea Nitrogen 16 mg/dL (7-17); Carbon Dioxide 29 mmol/L (22-30); Chloride 101 mmol/L (98-107); Glucose 97 mg/dL (74-99); Non-African American GFR(CKD) >90 (>60 ml/min/1.73 sqM); Potassium 3.6 mmol/L (3.5-5.1); Sodium 135 mmol/L (137-145)
[2024-12-09 08:31] VITALS: BP 97/61; PULSE 77
--- NOTE | 2024-12-09 11:38 | P.PN ---
Subjective Patient is seen for follow-up for acute kidney injury. Renal function has improved. Serum creatinine is down to 0.7 mg/dL. No significant complaints today. Maintained on oral Lasix. Patient has significant lower extremity edema.. No shortness of breath. Objective - Vital Signs Vital signs: Vital Signs Temp 97.5 F L 12/09/24 03:39 Pulse 77 12/09/24 08:31 Resp 16 12/09/24 08:31 BP 97/61 12/09/24 08:31 Pulse Ox 93 L 12/09/24 08:31 FiO2 Intake & Output 12/08/24 12/09/24 12/09/24 18:59 06:59 18:59 Intake Total 240 118 Output Total 1 Balance 239 118 Weight 108 kg Intake: Oral 240 118 Output: Stool 1 Other: Voiding Method Toilet Toilet Bedside Commode Bedside Commode # Voids 1 10 1 - Exam Patient is awake, comfortable, no acute distress. Examination of the heart S1 and S2 Examination of the lungs bilateral breath sounds are heard Abdomen is soft nontender Examination of lower extremities shows chronic skin changes 2+ edema bilaterally DANCE PROFESSOR exam grossly intact - Labs CBC & Chem 7: 12/08/24 05:35 12/09/24 06:03 Labs: Abnormal Lab Results - Last 24 Hours (Table) 12/09/24 Range/Units 06:03 Sodium 135 L (137-145) mmol/L Assessment and Plan Assessment: 1. Acute kidney injury, ATN secondary to hypotension, improved. No evidence of obstruction on CT abdomen. UA shows 1+ protein no blood. 2. Hypertension maintained on hydrochlorothiazide and Norvasc at home. 3. Alcoholic liver disease with evidence of ascites 4. Hypomagnesemia status post replacement 5. Anemia with no active bleeding noted. Iron saturation at 16%, started oral iron 6. Mental status changes, improved 7. Volume overload Plan: Switch to IV Lasix Continue with Aldactone Continue to hold Norvasc Repeat labs in a.m.
[2024-12-09] MEDS: FUROSEMIDE 10 MG/ML 4 ML VIAL IV SCH (12:03)
--- NOTE | 2024-12-09 19:15 | P.DS ---
Providers Date of admission: 12/02/24 23:17 Expected date of discharge: 12/09/24 Attending physician: Jayy Holguin Consults: 12/05/24 11:43 Consult Physician Routine Consulting Provider: Claudine Guillen Consult Reason/Comments: CHICA Do you want consulting provider notified?: Yes Primary care physician: Henna Doe MD Hospital Course: Chief Complaint: Fall 59-year-old, female patient follows with Dr. Henna Doe. Chronic medical condition include GERD, hyperlipidemia, essential hypertension, alcoholic liver disease follows at the office of Dr. Jeremy Arevalo. Patient was seen by me earlier today in the ER. Patient presented with falls. Patient states she fell out of bed. And she is able to get up and walk when she tripped on the rug. Her brother came and he brought her in. Patient drinks anywhere from 4 to 5 glasses of wine a day. Alcohol admission was 24. Patient's liver also questions. She says she has numbness in both of her feet. Abdomen slightly distended. Denies any fever and chills. December 04: Patient been taken off IV Lasix. On Aldactone. More alert today. With lactulose. Eating everything. On fluid restriction. Nurse informed me short-term ago that patient is not able to ambulate. Weak. Will get PT OT on board. December 05: Patient is making some conflicting statements. Slightly delirious. Will DC Valium that was given for DT prophylaxis. Change lactulose to 20 g 3 times daily. Hold for less than 4 BMs a day. Depending how she does today in the next 24 hours may want to add rifaximin. December 06: Daughter at the bedside. Tasneem. Lives in [facility]. Lengthy discussion was held regarding patient's social circumstances. When she leaves from here. Had about 50% for breakfast. Sleepy this afternoon. Spoke to the nurse. Doing a bit better. Have the patient ambulate with the daughter. Did require Ativan at night as she was hallucinating. December 07: Patient more awake. Still a bit distant. Did not walk a bit. Daughter will be staying over with the patient for about a week. Abdomen distended. Will consult IR for paracentesis. Patient remains on fluid restriction. Oral Lasix was added in addition to Aldactone. December 08: Send is not done as patient not having enough fluid. Patient has been walking around the room and up to the bathroom. Remains on diuretics. Jerome wrap lower extremity. Discussed with the patient and daughter. Plan for discharge tomorrow. December 09: Doing better. Comprehending better. Answering questions much better. Did ambulate in the hallway. Patient given a walker. Sleep hygiene discussed lives with daughter. Ambien discontinued. Patient been discharged on Aldactone lactulose and Lasix. Fluid restriction. Patient follow-up with Dr. Jeremy Arevalo. Home care per social security specialist. Her daughter will be staying for some time at her house. Discussion and discharge planning more than 35 minutes Social history: Patient in August of this year.. Smokes small amount of marijuana daily. Drinks about 4 glasses of 5 ounce wine daily and a mixed drink. For 20 years. Patient smoked for 20 years stopped about 25 years ago. Physical examination: VITAL SIGNS: 97.5, 77, 16, 97 x 61, 93 Hai GENERAL: More awake communicating better spider nevi. Pseudo cushingoid facies. Flushed cheeks EYES: Pupils equal. Conjunctiva yellow l. HEENT: External appearance of nose and ears normal, oral cavity grossly normal. NECK: JVD not raised; masses not palpable. HEART: First and second heart sounds are normal; edema present. LUNGS: Respiratory rate normal; clear to auscultation. ABDOMEN: Soft, more distended. Nontender, liver spleen not palpable, no masses palpable. PSYCH: Answering questions much better. Far more awake. MUSCULOSKELETAL:No Clubbing/cyanosis;muscles-grossly intact. OA NEUROLOGICAL: Cranial nerves grossly intact; no facial asymmetry, power grossly intact. Decreased sensation to fine touch distally in both the legs. Did ambulate in the hallway. INVESTIGATIONS, reviewed in the clinical context: December 09: Potassium 3.6 creatinine 0.72 December 08: White count 4.8 hemoglobin 7.9 platelets 129 potassium 3.7 creatinine 0.76 AST 119 ALT 43 December 02: White count 8.2 hemoglobin 9.3 platelets 171 sodium 132 potassium 3.6 creatinine 1.14 Bernie lactic acid 5.3 total bilirubin 3.[address] Ammonia [address] brain: Acute left posterior parietal scalp hematoma. Nonspecific white matter changes. CT scan abdomen pelvis: Hepatic steatosis with surface nodularity. Concerning for hepatic cirrhosis. Increased moderate volume ascites. Diffuse anasarca. Colonic diverticulosis. August 2024 Hepatitis A IgM, hepatitis B surface antigen, hepatitis B core IgM, hepatitis C IgG, influenza type A, type B, RSV, COVID-19: All negative Ultrasound gallbladder [August 2024]: Liver increased attenuation hepatomegaly. Assessment plan: - Acute hepatic encephalopathy. Patient is underlying cirrhosis. With features of portal hypertension. Elevated ammonia.: Much improved Lactulose 20 mg twice daily titrate to 3-4 bowel movements a day. 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 Resulting in recurrent falls:: Improvement Patient walking in the hallway.. - Acute medical debility from above. Significantly improved -Severe hypomagnesemia: Replace magnesium -Alcohol use disorder CIWA scale. Thiamine. Multivitamin. Last drink was the night before admission -Alcoholic cirrhosis with findings of portal hypertension Follow-up with Dr. Jeremy Arevalo outpatient -Secondary portal hypertension secondary to alcoholic cirrhosis causing ascites Aldactone. Lasix Coreg discontinued because of low blood pressure y - Moderate ascites secondary to portal hypertension secondary to cirrhosis Discharged on: Fluid restriction. Aldactone 100 mg twice daily. Lasix 40 mg a day Per interventional radiology not enough fluid for paracentesis. - Acute kidney injury likely hepatorenal syndrome.: Resolved Nephrology following. Follow renal function - Acute obstructive hepatocellular hepatitis from alcoholism Follow LFTs -Hyperbilirubinemia from alcohol liver disease - Essential hypertension, currently blood pressure on his lower side. Stop amlodipine. - GERD with alcoholic gastritis PPI - Peripheral neuropathy secondary to alcoholism contributing to poor balance -Full code Disposition: Home with daughterTasneem Past Medical History Past Medical History: GERD/Reflux, Hyperlipidemia, Hypertension, Liver Disease Additional Past Medical History / Comment(s): fatty liver, History of Any Multi-Drug Resistant Organisms: None Reported Past Surgical History: Section, Cholecystectomy, Orthopedic Surgery Additional Past Surgical History / Comment(s): rt foot surgery. colonosopy Past Anesthesia/Blood Transfusion Reactions: No Reported Reaction Past Psychological History: Anxiety Smoking Status: Former smoker, Light tobacco smoker Past Alcohol Use History: Daily Past Drug Use History: Marijuana Plan - Discharge Summary Discharge Rx Participant: No New Discharge Prescriptions: New Pantoprazole [Protonix] 40 mg PO AC-BRKFST #30 tab Spironolactone [Aldactone] 100 mg PO BID #60 tab Lactulose [Cephulac] 20 gm PO BID #60 ml Furosemide [Lasix] 40 mg PO DAILY@1400 #30 tab Continue ALPRAZolam [Xanax] 0.25 mg PO DAILY PRN PRN Reason: Anxiety Omeprazole 20 mg PO DAILY Magnesium Oxide [Mag-Ox] 200 mg PO BID #60 tab Thiamine [Vitamin B-1] 100 mg PO DAILY #30 tab Ezetimibe [Zetia] 10 mg PO DAILY Multivitamins, Thera [Multivitamin (formulary)] 1 tab PO DAILY Calcium Carb-Vit D 500Mg-5Mcg [Oscal 500+D 5 Mcg (200 Iu)] 1 tab PO BID- W/MEALS Discontinued Zolpidem Tartrate [Ambien] 10 mg PO HS PRN PRN Reason: Insomnia hydroCHLOROthiazide [Hydrodiuril] 12.5 mg PO DAILY PRN PRN Reason: Edema amLODIPine [Norvasc] 2.5 mg PO DAILY Discharge Medication List ALPRAZolam [Xanax] 0.25 mg PO DAILY PRN 01/01/23 [History] Omeprazole 20 mg PO DAILY 01/01/23 [History] Magnesium Oxide [Mag-Ox] 200 mg PO BID #60 tab 09/15/24 [Rx] Thiamine [Vitamin B-1] 100 mg PO DAILY #30 tab 09/15/24 [Rx] Calcium Carb-Vit D 500Mg-5Mcg [Oscal 500+D 5 Mcg (200 Iu)] 1 tab PO BID-W/MEALS 12/03/24 [History] Ezetimibe [Zetia] 10 mg PO DAILY 12/03/24 [History] Multivitamins, Thera [Multivitamin (formulary)] 1 tab PO DAILY 12/03/24 [History] Furosemide [Lasix] 40 mg PO DAILY@1400 #30 tab 12/09/24 [Rx] Lactulose [Cephulac] 20 gm PO BID #60 ml 12/09/24 [Rx] Pantoprazole [Protonix] 40 mg PO AC-BRKFST #30 tab 12/09/24 [Rx] Spironolactone [Aldactone] 100 mg PO BID #60 tab 12/09/24 [Rx] Follow up Appointment(s)/Referral(s): Claudine Guillen MD [STAFF PHYSICIAN] - 2 Weeks (Unable to get through. Please call to schedule appointment) Michelle Arevalo MD [STAFF PHYSICIAN] - 2 Weeks (PLease call to schedule appointment) Henna Doe MD [Primary Care Provider] - 1-2 days (Spoke to compensator worker. Office will call with appointment time) [facility] Visiting Nurse, [NON-STAFF] - 1 Week Activity/Diet/Wound Care/Special Instructions: fluid restrict 1800 ml/day Discharge/Stand Alone Forms: [place] [facility] Pamphlet, Who Do I Call?, Help In The Home Discharge Disposition: HOME SELF-CARE
== END 2024-12-09 12:06 | disposition home or self-care (01) | DRG 441 ==
LOC: EC 21:52 → 3SCARD 23:17
PROVIDERS: ADMIT Hospitalist; ATTEND Hospitalist
DX: K76.82 Hepatic encephalopathy (principal); K76.7 Hepatorenal syndrome; N17.0 Acute kidney failure with tubular necrosis; K70.11 Alcoholic hepatitis with ascites; E87.29 Other acidosis; I10 Essential (primary) hypertension; D64.9 Anemia, unspecified; K76.6 Portal hypertension; E87.1 Hypo-osmolality and hyponatremia; K70.31 Alcoholic cirrhosis of liver with ascites; G62.1 Alcoholic polyneuropathy; E78.5 Hyperlipidemia, unspecified; K29.20 Alcoholic gastritis without bleeding; E83.42 Hypomagnesemia; E87.6 Hypokalemia; F41.9 Anxiety disorder, unspecified; K21.9 Gastro-esophageal reflux disease without esophagitis; E87.70 Fluid overload, unspecified; W06.XXXA Fall from bed, initial encounter; W01.0XXA Fall on same level from slipping, tripping and stumbling without subsequent striking against object, initial encounter; Z87.891 Personal history of nicotine dependence; Z79.899 Other long term (current) drug therapy
CPT/HCPCS: 36415; 51798; 70450; 71045; 74176; 80048; 80053; 80076; 80320; 81001; 82140; 82550; 83540; 83550; 83605; 83690; 83735; 84100; 84132; 85025; 85027; 85610; 85730; 94640; 96361; 96365; 96366; 96367; 96368; 96375; 96376; 99291